=== PATIENT | female | born 1935 | race Caucasian/White ===

== ENCOUNTER 2016-06-10 16:08 | Inpatient (IN) | payer MEDICARE, MEDICAID ==
[~2016-06-10] VITALS: Ht 152.4 cm; Wt 123.4 kg
[~2016-06-10 16:08] MED LIST: ALBU8.5H3 INH; ALBU8.5H5 INH; AMIO200T42 PO; AMLO1POW2 PO; AMLO5TAB2 PO; APIX5TAB PO; ASPI-650 PO; CLOT100T PO; CLOT15CR4 TP; ENAL20TA PO; FLUT1POW2 INH; FURO-92 PO; FURO-93 PO; HYDR-3138 PO; LISI-167 PO; LOSA100T6 PO; LOSA50TA2 PO; LOSA50TA6 PO; LOVA20TA2 PO; METO25TA35 PO; METO50TA82 PO; ONDA4TAB10 PO; OXYM30SP2 INH; POTA10TA90 PO; POTA20TA14 PO; RANI150T4 PO; SERT25TA3 PO; TIOT18CA INH; aspirin PO
[2016-06-10] MEDS ORDERED: SODIUM CHLORIDE FLUSH 10ML SYR IVF ONE (16:30)
[2016-06-10] MEDS ORDERED: ACETAMINOPHEN 325 MG TABLET PO ONE (16:30)
[2016-06-10] MEDS ORDERED: ALBUTEROL/IPRATROPIUM 2.5MG/0.5MG, 3 ML NPPB ONE (16:30)
[2016-06-10] MEDS ORDERED: SODIUM CHLORIDE 0.9% 1,000ML IVBOLUS ONE ×2 (16:30→17:30)
[2016-06-10] MEDS ORDERED: PLEASE ENTER HEIGHT AND WEIGHT MC SCH (16:30)
[2016-06-10] MEDS ORDERED: [UNRECOGNIZED DRUG - OTHER] PO (16:31)
[2016-06-10] MEDS ORDERED: AMLO2.5T PO (16:31)
[2016-06-10] MEDS ORDERED: ACETAMINOPHEN 325 MG TABLET ONE (16:36)
[2016-06-10] MEDS ORDERED: ALBUTEROL/IPRATROPIUM 2.5MG/0.5MG, 3 ML ONE (16:37)
[2016-06-10 16:55] LABS: ASPARTATE AMINO TRANSFERASE 18 U/L (15-37); BLOOD UREA NITROGEN 15 mg/dL (7-18)
[2016-06-10 17:12] LABS: DIFF TOTAL CELLS COUNTED 100 CELL DIFF
[2016-06-10 17:13] LABS: VERIFY COUNTS? YES
[2016-06-10 17:17] LABS: IS PT STATUS REG ER OR PRE ER? YES
[2016-06-10] MEDS ORDERED: VANCOMYCIN PER PHARMACY MC ONE (17:30)
[2016-06-10] MEDS ORDERED: PIPERACILLIN/TAZO/PMX 4.5GM 100 ML IVPB ONE (17:30)
[2016-06-10] MEDS ORDERED: VANCOMYCIN 2,000 MG in SODIUM CHLORIDE 0.9% 500 ML IV ONE (18:30)
[2016-06-10] MEDS ORDERED: PHARMACOKINETIC CONSULTATION MC ONE (18:30)
[2016-06-10] MEDS ORDERED: SODIUM CHLORIDE 0.9%, 500ML IVBOLUS ONE (19:30)
[2016-06-10] MEDS ORDERED: ONDANSETRON 2MG/ML, 2ML IVP PRN (21:00)
[2016-06-10] MEDS ORDERED: LABETALOL 20 MG/4 ML IV PRN (21:00)
[2016-06-10] MEDS ORDERED: HYDROcodone/APAP 5/325 TABLET PO PRN (21:00)
[2016-06-10 21:25] VITALS: BP 124/64
[2016-06-10] MEDS ORDERED: ALBUTEROL/IPRATROPIUM 2.5MG/0.5MG, 3 ML NEB PRN (21:30)
[2016-06-10 21:47] VITALS: BP 114/72
[2016-06-10] MEDS: GUAIFENESIN/DM 200-20MG, 10ML UDC PO PRN (22:44)
[2016-06-10] MEDS: NS + 20MEQ KCL 1,000 ML IV SCH (22:45)
[2016-06-10 22:48] LABS: IS PT STATUS REG ER OR PRE ER? NO
[2016-06-10] MEDS: LEVOFLOXACIN/PMX 750MG/150ML 150 ML IV SCH (23:21)
[2016-06-11 02:30] VITALS: BP 106/54
[2016-06-11] MEDS ORDERED: SODIUM CHLORIDE 0.9%, 500ML IVBOLUS ONE (03:00)
[2016-06-11 03:20] VITALS: BP 106/55
[2016-06-11 04:57] LABS: BLOOD UREA NITROGEN 22 mg/dL (7-18)
[2016-06-11 05:48] LABS: DIFF TOTAL CELLS COUNTED 100 CELL DIFF
[2016-06-11 05:49] LABS: VERIFY COUNTS? YES
[2016-06-11 06:43] LABS: IS PT STATUS REG ER OR PRE ER? NO
[2016-06-11 06:55] VITALS: BP 122/63
[2016-06-11] MEDS: SENNA/DOCUSATE TABLET PO SCH (07:52)
[2016-06-11] MEDS: LOVASTATIN 40 MG TABLET PO SCH (07:52)
[2016-06-11] MEDS: AMIODARONE 200 MG TABLET PO SCH (07:52)
[2016-06-11] MEDS: APIXABAN 5 MG TABLET PO SCH ×2 (07:52→20:57)
[2016-06-11] MEDS: ACETAMINOPHEN 325 MG TABLET PO PRN ×2 (08:42→20:58)
[2016-06-11] MEDS: NS + 20MEQ KCL 1,000 ML IV SCH ×2 (13:27→22:28)
[2016-06-11 13:46] VITALS: BP 136/69
[2016-06-11] MEDS: ALBUTEROL/IPRATROPIUM 2.5MG/0.5MG, 3 ML NEB SCH ×4 (14:28→23:45)
[2016-06-11] MEDS: GUAIFENESIN/DM 200-20MG, 10ML UDC PO PRN (15:55)
[2016-06-11 16:28] VITALS: BP 146/69
[2016-06-11 18:39] VITALS: BP 122/67
[2016-06-11] MEDS: LEVOFLOXACIN/PMX 750MG/150ML 150 ML IV SCH (20:58)
[2016-06-12 01:15] VITALS: BP 172/60
[2016-06-12] MEDS: ALBUTEROL/IPRATROPIUM 2.5MG/0.5MG, 3 ML NEB SCH ×5 (01:30→17:30)
[2016-06-12 05:44] LABS: BLOOD UREA NITROGEN 19 mg/dL (7-18)
[2016-06-12 07:27] VITALS: BP 154/81
[2016-06-12] MEDS: LOVASTATIN 40 MG TABLET PO SCH (09:12)
[2016-06-12] MEDS: APIXABAN 5 MG TABLET PO SCH ×2 (09:12→21:23)
[2016-06-12] MEDS: SENNA/DOCUSATE TABLET PO SCH (09:12)
[2016-06-12] MEDS: FUROSEMIDE 20 MG TABLET PO SCH (09:12)
[2016-06-12] MEDS: LOSARTAN 50MG TABLET PO SCH (09:12)
[2016-06-12] MEDS: AMIODARONE 200 MG TABLET PO SCH (09:12)
[2016-06-12] MEDS: ACETAMINOPHEN 325 MG TABLET PO PRN (09:13)
[2016-06-12] MEDS: AMLODIPINE 2.5 MG TABLET PO SCH (10:28)
[2016-06-12 12:52] VITALS: BP 127/67
[2016-06-12] MEDS ORDERED: ALBUTEROL/IPRATROPIUM 2.5MG/0.5MG, 3 ML NEB PRN (17:30)
[2016-06-12 18:53] VITALS: BP 180/67
[2016-06-12 19:34] VITALS: BP 160/77
[2016-06-12] MEDS: LEVOFLOXACIN/PMX 750MG/150ML 150 ML IV SCH (21:24)
[2016-06-13 00:51] VITALS: BP 154/67
[2016-06-13 05:44] LABS: BLOOD UREA NITROGEN 14 mg/dL (7-18)
[2016-06-13] MEDS: ACETAMINOPHEN 325 MG TABLET PO PRN (06:21)
[2016-06-13 06:59] VITALS: BP 151/70
[2016-06-13] MEDS: LOVASTATIN 40 MG TABLET PO SCH (08:51)
[2016-06-13] MEDS: APIXABAN 5 MG TABLET PO SCH (08:51)
[2016-06-13] MEDS: FUROSEMIDE 20 MG TABLET PO SCH (08:52)
[2016-06-13] MEDS: LOSARTAN 50MG TABLET PO SCH (08:52)
[2016-06-13] MEDS: AMIODARONE 200 MG TABLET PO SCH (08:52)
[2016-06-13] MEDS: SENNA/DOCUSATE TABLET PO SCH (08:52)
[2016-06-13] MEDS: AMLODIPINE 2.5 MG TABLET PO SCH (08:59)
[2016-06-13] MEDS ORDERED: FUROSEMIDE 20 MG TABLET PO ONE (10:00)
[2016-06-13] MEDS ORDERED: LEVO750T26 PO ×2 (11:53→11:55)
[2016-06-13 12:05] LABS: PATH.CAST-FLAG NOT PRESENT; SPERM-FLAG NOT PRESENT; SRC-FLAG NOT PRESENT; XTAL-FLAG NOT PRESENT; YLC-FLAG NOT PRESENT
[2016-06-13 13:33] VITALS: BP 157/70
[2016-06-14] MEDS ORDERED: FUROSEMIDE 40 MG TABLET PO SCH (09:00)
== END 2016-06-13 15:37 | disposition home health service (06) | DRG 871 ==
LOC: ED 16:52 → EDIP 19:16 → 4WST 21:15
PROVIDERS: ADMIT Internal Medicine; ATTEND Internal Medicine
DX: A41.9 Sepsis, unspecified organism (principal); J18.9 Pneumonia, unspecified organism; J96.21 Acute and chronic respiratory failure with hypoxia; J44.0 Chronic obstructive pulmonary disease with (acute) lower respiratory infection; N17.9 Acute kidney failure, unspecified; J44.1 Chronic obstructive pulmonary disease with (acute) exacerbation; R65.20 Severe sepsis without septic shock; I11.0 Hypertensive heart disease with heart failure; I25.10 Atherosclerotic heart disease of native coronary artery without angina pectoris; I48.0 Paroxysmal atrial fibrillation; I50.9 Heart failure, unspecified; J44.9 Chronic obstructive pulmonary disease, unspecified; J45.909 Unspecified asthma, uncomplicated; Z66 Do not resuscitate; Z79.4 Long term (current) use of insulin; Z80.1 Family history of malignant neoplasm of trachea, bronchus and lung; Z99.81 Dependence on supplemental oxygen; Z90.49 Acquired absence of other specified parts of digestive tract; Z88.8 Allergy status to other drugs, medicaments and biological substances; Z82.49 Family history of ischemic heart disease and other diseases of the circulatory system
CPT/HCPCS: 36415; 71010; 80048; 80053; 81001; 82962; 83605; 83735; 83880; 84145; 84484; 85025; 85610; 85730; 87040; 87086; 87324; 93005; 94640; 96361; 96365; 96375; J1956; J2543; J3370; J3480; J7620; J7030; J7040

== ENCOUNTER 2016-07-20 09:44 | Inpatient (IN) | payer MEDICARE, MEDICAID ==
[~2016-07-20] VITALS: Ht 152.4 cm; Wt 107.5 kg
[~2016-07-20 09:44] MED LIST changes: +AMLO2.5T PO; +LEVO750T26 PO; +[UNRECOGNIZED DRUG - OTHER] PO
[2016-07-20] MEDS ORDERED: ALBUTEROL/IPRATROPIUM 2.5MG/0.5MG, 3 ML ONE (09:57)
[2016-07-20] MEDS ORDERED: SODIUM CHLORIDE FLUSH 10ML SYR IVF ONE (10:00)
[2016-07-20] MEDS ORDERED: methylPREDNISolone SOD SUCC 125 MG/2 ML IVP ONE (10:00)
[2016-07-20] MEDS ORDERED: PLEASE ENTER HEIGHT AND WEIGHT MC SCH (10:00)
[2016-07-20] MEDS ORDERED: MAGNESIUM SULFATE PMX 2GM/50ML 50 ML IVPB ONE (10:00)
[2016-07-20] MEDS ORDERED: methylPREDNISolone SOD SUCC 125 MG/2 ML ONE (10:16)
[2016-07-20 10:28] LABS: BLOOD UREA NITROGEN 15 mg/dL (7-18)
[2016-07-20 10:32] LABS: IS PT STATUS REG ER OR PRE ER? YES
[2016-07-20] MEDS ORDERED: SODIUM CHLORIDE FLUSH 10ML SYR IVF PRN (12:00)
[2016-07-20] MEDS ORDERED: BETAMETHASONE/CLOTRIMAZOLE CRM 1%-0.05%, 15GM TP PRN (12:30)
[2016-07-20] MEDS ORDERED: ONDANSETRON 2MG/ML, 2ML IVPush PRN (12:30)
[2016-07-20] MEDS ORDERED: ONDANSETRON ODT 4 MG PO PRN (12:30)
[2016-07-20] MEDS ORDERED: ALBUTEROL SULFATE 108 MCG INH PRN (12:30)
[2016-07-20] MEDS ORDERED: BISACODYL 10 MG SUPP PR PRN (12:30)
[2016-07-20] MEDS: SENNA/DOCUSATE TABLET PO SCH (12:30)
[2016-07-20] MEDS ORDERED: ENOXAPARIN 40 MG/0.4 ML SQ SCH (12:30)
[2016-07-20 13:27] VITALS: BP 118/68
[2016-07-20] MEDS ORDERED: [UNRECOGNIZED DRUG - REMARK] MC SCH (13:30)
[2016-07-20] MEDS ORDERED: ALBUTEROL SULFATE 2.5 MG/3 ML NPPB PRN (14:00)
[2016-07-20] MEDS: ACETAMINOPHEN 325 MG TABLET PO PRN ×2 (14:57→21:40)
[2016-07-20] MEDS: methylPREDNISolone SOD SUCC 40 MG/ML IV SCH (15:09)
[2016-07-20] MEDS: ALBUTEROL/IPRATROPIUM 2.5MG/0.5MG, 3 ML HHN SCH ×2 (16:30→22:30)
[2016-07-20 18:33] VITALS: BP 133/67
[2016-07-20] MEDS ORDERED: POTASSIUM CHLORIDE 20 MEQ TAB.ER.PRT PO ONE (20:00)
[2016-07-20] MEDS ORDERED: LABETALOL 5MG/ML, 20ML IVPush PRN (20:00)
[2016-07-20] MEDS ORDERED: FUROSEMIDE 20 MG TABLET PO SCH (21:00)
[2016-07-20] MEDS: APIXABAN 5 MG TABLET PO SCH (21:40)
[2016-07-20] MEDS ORDERED: FUROSEMIDE 40 MG TABLET PO ONE (22:30)
[2016-07-21 00:59] VITALS: BP 150/72
[2016-07-21] MEDS: ACETAMINOPHEN 325 MG TABLET PO PRN ×3 (02:56→20:25)
[2016-07-21] MEDS: methylPREDNISolone SOD SUCC 40 MG/ML IV SCH ×2 (02:56→15:00)
[2016-07-21 06:08] LABS: BLOOD UREA NITROGEN 18 mg/dL (7-18)
[2016-07-21 06:16] LABS: ASPARTATE AMINO TRANSFERASE 14 U/L (15-37)
[2016-07-21 06:51] VITALS: BP 144/74
[2016-07-21] MEDS: ALBUTEROL/IPRATROPIUM 2.5MG/0.5MG, 3 ML HHN SCH ×4 (07:15→20:10)
[2016-07-21] MEDS: FLUTICASONE/VILANTEROL 100-25MCG/INH INH SCH (08:40)
[2016-07-21] MEDS: AMIODARONE 200 MG TABLET PO SCH (08:41)
[2016-07-21] MEDS: SIMVASTATIN 10 MG TABLET PO SCH (08:41)
[2016-07-21] MEDS: AMLODIPINE 2.5 MG TABLET PO SCH (08:41)
[2016-07-21] MEDS: FUROSEMIDE 20 MG TABLET PO SCH (08:42)
[2016-07-21] MEDS: POTASSIUM CHLORIDE 10 MEQ TABLET.ER PO SCH (08:42)
[2016-07-21] MEDS: LOSARTAN 50MG TABLET PO SCH (08:42)
[2016-07-21] MEDS: APIXABAN 5 MG TABLET PO SCH ×2 (08:42→20:15)
[2016-07-21] MEDS: SENNA/DOCUSATE TABLET PO SCH (08:44)
[2016-07-21] MEDS ORDERED: [UNRECOGNIZED DRUG - OTHER] PO SCH (09:00)
[2016-07-21 14:26] VITALS: BP 147/70
[2016-07-21 18:24] VITALS: BP 157/70
[2016-07-22 01:02] VITALS: BP 143/69
[2016-07-22] MEDS: ACETAMINOPHEN 325 MG TABLET PO PRN ×3 (03:33→21:13)
[2016-07-22] MEDS: methylPREDNISolone SOD SUCC 40 MG/ML IV SCH (03:34)
[2016-07-22] MEDS: ALBUTEROL/IPRATROPIUM 2.5MG/0.5MG, 3 ML HHN SCH ×4 (04:15→20:01)
[2016-07-22 07:08] VITALS: BP 163/75
[2016-07-22] MEDS: AMIODARONE 200 MG TABLET PO SCH (08:51)
[2016-07-22] MEDS: POTASSIUM CHLORIDE 10 MEQ TABLET.ER PO SCH (08:52)
[2016-07-22] MEDS: AMLODIPINE 2.5 MG TABLET PO SCH (08:52)
[2016-07-22] MEDS: APIXABAN 5 MG TABLET PO SCH ×2 (08:52→21:12)
[2016-07-22] MEDS: FUROSEMIDE 20 MG TABLET PO SCH (08:52)
[2016-07-22] MEDS: LOSARTAN 50MG TABLET PO SCH (08:52)
[2016-07-22] MEDS: SIMVASTATIN 10 MG TABLET PO SCH (08:53)
[2016-07-22] MEDS: SENNA/DOCUSATE TABLET PO SCH (08:54)
[2016-07-22] MEDS: FLUTICASONE/VILANTEROL 100-25MCG/INH INH SCH (09:56)
[2016-07-22 13:52] VITALS: BP 149/67
[2016-07-22 19:42] VITALS: BP 131/71
[2016-07-23] MEDS: ALBUTEROL/IPRATROPIUM 2.5MG/0.5MG, 3 ML HHN SCH (02:25)
[2016-07-23 02:48] VITALS: BP 151/66
[2016-07-23] MEDS: ACETAMINOPHEN 325 MG TABLET PO PRN ×2 (04:08→08:35)
[2016-07-23] MEDS: SIMVASTATIN 10 MG TABLET PO SCH (08:30)
[2016-07-23] MEDS: AMIODARONE 200 MG TABLET PO SCH (08:30)
[2016-07-23] MEDS: LOSARTAN 50MG TABLET PO SCH (08:30)
[2016-07-23] MEDS: FUROSEMIDE 20 MG TABLET PO SCH (08:30)
[2016-07-23] MEDS: SENNA/DOCUSATE TABLET PO SCH (08:30)
[2016-07-23] MEDS: POTASSIUM CHLORIDE 10 MEQ TABLET.ER PO SCH (08:30)
[2016-07-23] MEDS: AMLODIPINE 2.5 MG TABLET PO SCH (08:30)
[2016-07-23] MEDS: APIXABAN 5 MG TABLET PO SCH ×2 (08:30→22:10)
[2016-07-23] MEDS: FLUTICASONE/VILANTEROL 100-25MCG/INH INH SCH (08:45)
[2016-07-24] MEDS: AMIODARONE 200 MG TABLET PO SCH (09:00)
[2016-07-24] MEDS: APIXABAN 5 MG TABLET PO SCH (09:00)
[2016-07-24] MEDS: LOSARTAN 50MG TABLET PO SCH (09:00)
[2016-07-24] MEDS: SIMVASTATIN 10 MG TABLET PO SCH (09:00)
[2016-07-24] MEDS: AMLODIPINE 2.5 MG TABLET PO SCH (09:00)
[2016-07-24] MEDS: FUROSEMIDE 20 MG TABLET PO SCH (09:00)
== END 2016-07-24 12:30 | disposition home or self-care (01) | DRG 291 ==
LOC: ED 11:04 → EDIP 11:34 → 4WST 13:07 → DCLOUNGE 07-24 11:33
PROVIDERS: ADMIT Family Medicine; ATTEND Family Medicine
DX: I11.0 Hypertensive heart disease with heart failure (principal); J18.9 Pneumonia, unspecified organism; J44.1 Chronic obstructive pulmonary disease with (acute) exacerbation; Z68.42 Body mass index [BMI] 45.0-49.9, adult; I50.23 Acute on chronic systolic (congestive) heart failure; E87.6 Hypokalemia; G47.33 Obstructive sleep apnea (adult) (pediatric); M19.90 Unspecified osteoarthritis, unspecified site; I48.91 Unspecified atrial fibrillation; Z66 Do not resuscitate; Z82.49 Family history of ischemic heart disease and other diseases of the circulatory system; Z99.81 Dependence on supplemental oxygen; Z80.1 Family history of malignant neoplasm of trachea, bronchus and lung; Z83.3 Family history of diabetes mellitus; Z90.49 Acquired absence of other specified parts of digestive tract; E78.5 Hyperlipidemia, unspecified
CPT/HCPCS: 36415; 71010; 80048; 80053; 82040; 83880; 84484; 85025; 93005; 94640; 96365; 96366; 96375; J1650; J7620; J2920; J2930; J3475; J7512

== ENCOUNTER 2016-10-07 10:33 | Inpatient (IN) | payer MEDICARE, MEDICAID ==
[~2016-10-07] VITALS: Ht 152.4 cm; Wt 105.4 kg
[~2016-10-07 10:33] MED LIST changes: -ALBU8.5H3 INH; +ALBU8.5H8 INH; -HYDR-3138 PO; +HYDR-3237 PO; -OXYM30SP2 INH; +OXYM30SP81 INH; +POTA10TA6 PO; -POTA10TA90 PO
[2016-10-07] MEDS ORDERED: SODIUM CHLORIDE 0.9% 1,000 ML IV ONE (10:47)
[2016-10-07] MEDS ORDERED: SODIUM CHLORIDE 0.9% 1,000ML IVBOLUS ONE (11:00)
[2016-10-07 11:15] LABS: HEMATOCRIT 41.3 % (34.6-47.8); HEMOGLOBIN 13.3 g/dL (11.7-16.4); WHITE BLOOD COUNT 8.7 x10^3/uL (3.4-10)
[2016-10-07 11:24] LABS: ASPARTATE AMINO TRANSFERASE 16 U/L (15-37); BLOOD UREA NITROGEN 15 mg/dL (7-18)
[2016-10-07] MEDS ORDERED: MECLIZINE CHEWABLE 25 MG TAB PO ONE (11:30)
[2016-10-07 11:31] LABS: IS PT STATUS REG ER OR PRE ER? YES
[2016-10-07] MEDS ORDERED: MECLIZINE CHEWABLE 25 MG TAB ONE (11:40)
[2016-10-07] MEDS ORDERED: SODIUM CHLORIDE FLUSH 10ML SYR IVF PRN (13:30)
[2016-10-07] MEDS ORDERED: ENALAPRILAT 1.25 MG/ML, 2ML IVPush PRN ×2 (15:00→16:00)
[2016-10-07] MEDS ORDERED: POLYETHYLENE GLYCOL 17 GM PACKET PO PRN (15:00)
[2016-10-07] MEDS ORDERED: BISACODYL 10 MG SUPP PR PRN (15:00)
[2016-10-07] MEDS ORDERED: ALBUTEROL SULFATE 2.5 MG/3 ML NPPB PRN (15:30)
[2016-10-07] MEDS ORDERED: OXYMETAZOLINE NASAL SPRAY 0.05%, 15ML NAS PRN (15:30)
[2016-10-07] MEDS ORDERED: CLOTRIM/BETAMETH 1%/0.05% CRM TP PRN (15:30)
[2016-10-07 16:39] VITALS: BP 151/66
[2016-10-07] MEDS: ACETAMINOPHEN 325 MG TABLET PO PRN (18:04)
[2016-10-07 21:19] VITALS: BP 144/76
[2016-10-07 21:21] VITALS: BP_SYST 144; BP_SYST 157; BP_SYST 163; BP_DIAS 76; BP_DIAS 83; BP_DIAS 84
[2016-10-07] MEDS: FUROSEMIDE 20 MG TABLET PO SCH (22:28)
[2016-10-07] MEDS: APIXABAN 5 MG TABLET PO SCH (22:28)
[2016-10-08] VITALS (7 sets, daily range): BP systolic 132–176; BP diastolic 63–79
[2016-10-08] MEDS: AMLODIPINE 2.5 MG TABLET PO SCH (09:40)
[2016-10-08] MEDS: POTASSIUM CHLORIDE 20 MEQ TAB.ER.PRT PO SCH (09:41)
[2016-10-08] MEDS: AMIODARONE 200 MG TABLET PO SCH (09:42)
[2016-10-08] MEDS: LOVASTATIN 40 MG TABLET PO SCH (09:42)
[2016-10-08] MEDS: FUROSEMIDE 20 MG TABLET PO SCH ×2 (09:42→21:20)
[2016-10-08] MEDS: APIXABAN 5 MG TABLET PO SCH ×2 (09:42→21:20)
[2016-10-08] MEDS ORDERED: LOSARTAN 50MG TABLET PO ONE (14:30)
[2016-10-08] MEDS: ACETAMINOPHEN 325 MG TABLET PO PRN (23:51)
[2016-10-09 02:25] VITALS: BP 151/56
[2016-10-09 02:30] VITALS: BP 153/53
[2016-10-09 02:37] VITALS: BP 159/74
[2016-10-09 07:51] VITALS: BP 169/68
[2016-10-09] MEDS: LOSARTAN 50MG TABLET PO SCH ×2 (09:00→11:20)
[2016-10-09] MEDS ORDERED: LOSARTAN 50MG TABLET PO SCH (09:00)
[2016-10-09] MEDS: AMIODARONE 200 MG TABLET PO SCH ×2 (11:19→12:08)
[2016-10-09] MEDS: POTASSIUM CHLORIDE 20 MEQ TAB.ER.PRT PO SCH (11:20)
[2016-10-09] MEDS: APIXABAN 5 MG TABLET PO SCH (11:20)
[2016-10-09] MEDS: AMLODIPINE 2.5 MG TABLET PO SCH ×2 (11:21→12:08)
[2016-10-09] MEDS: FUROSEMIDE 20 MG TABLET PO SCH (11:21)
[2016-10-09] MEDS: LOVASTATIN 40 MG TABLET PO SCH (11:21)
[2016-10-09 11:30] VITALS: BP 128/51
[2016-10-09] MEDS ORDERED: LOSA50TA6 PO (12:28)
[2016-10-09 13:25] VITALS: BP 163/57
== END 2016-10-09 15:05 | disposition home health service (06) | DRG 312 ==
LOC: ED 11:40 → EDIP 13:18 → 4EST 15:29 → DCLOUNGE 10-09 14:50
PROVIDERS: ADMIT Family Medicine; ATTEND Family Medicine
DX: I95.1 Orthostatic hypotension (principal); I50.9 Heart failure, unspecified; I48.91 Unspecified atrial fibrillation; I11.0 Hypertensive heart disease with heart failure; Z68.42 Body mass index [BMI] 45.0-49.9, adult; R42 Dizziness and giddiness; Z88.8 Allergy status to other drugs, medicaments and biological substances; E03.9 Hypothyroidism, unspecified; G47.33 Obstructive sleep apnea (adult) (pediatric); H93.19 Tinnitus, unspecified ear; I35.1 Nonrheumatic aortic (valve) insufficiency; J44.9 Chronic obstructive pulmonary disease, unspecified; L21.9 Seborrheic dermatitis, unspecified; Z80.1 Family history of malignant neoplasm of trachea, bronchus and lung; Z96.652 Presence of left artificial knee joint; Z82.49 Family history of ischemic heart disease and other diseases of the circulatory system; R51 Headache; T46.5X5A Adverse effect of other antihypertensive drugs, initial encounter
CPT/HCPCS: 36415; 70450; 71010; 80053; 83690; 83880; 84443; 84484; 85025; 93005; 93306; 96360; J7030

== ENCOUNTER 2016-10-24 17:47 | Inpatient (IN) | payer MEDICARE, MEDICAID ==
[~2016-10-24] VITALS: Ht 152.4 cm; Wt 109.8 kg
[2016-10-24] MEDS ORDERED: ASPIRIN 81 MG TABLET CHEW PO ONE (18:30)
[2016-10-24 18:57] LABS: HEMATOCRIT 36.5 % (34.6-47.8); HEMOGLOBIN 12.1 g/dL (11.7-16.4); WHITE BLOOD COUNT 24.9 x10^3/uL (3.4-10)
[2016-10-24 19:08] LABS: ASPARTATE AMINO TRANSFERASE 13 U/L (15-37); BLOOD UREA NITROGEN 17 mg/dL (7-18)
[2016-10-24 19:13] LABS: IS PT STATUS REG ER OR PRE ER? YES
[2016-10-24] MEDS ORDERED: SODIUM CHLORIDE 0.9% 1,000ML IVBOLUS ONE ×2 (19:30→20:00)
[2016-10-24] MEDS ORDERED: OMNIPAQUE 350 MG/ML, 100ML BOTTLE ONE (19:42)
[2016-10-24 19:46] LABS: DIFF TOTAL CELLS COUNTED 100 CELL DIFF
[2016-10-24 19:51] LABS: VERIFY COUNTS? YES
[2016-10-24] MEDS ORDERED: CEFTRIAXONE PMX 1GM/50ML 50 ML IVPB ONE (20:00)
[2016-10-24] MEDS ORDERED: AZITHROMYCIN 500 MG in SODIUM CHLORIDE 0.9% 250 ML IVPB ONE (20:00)
[2016-10-24] MEDS ORDERED: FLUT1AER INH (20:18)
[2016-10-24] MEDS ORDERED: ALBU18HF INH (20:18)
[2016-10-24] MEDS ORDERED: LOSA50TA6 PO (20:18)
[2016-10-24] MEDS ORDERED: POTA10TA31 PO (20:18)
[2016-10-24] MEDS ORDERED: CEFTRIAXONE PMX 1GM/50ML 50 ML ONE (20:32)
[2016-10-24] MEDS ORDERED: SODIUM CHLORIDE FLUSH 10ML SYR IVF PRN (21:00)
[2016-10-24] MEDS ORDERED: D5%-0.45% NACL 1,000 ML IV SCH (21:55)
[2016-10-24] MEDS ORDERED: HYDROcodone/APAP 5/325 TABLET PO PRN (22:00)
[2016-10-24] MEDS ORDERED: LABETALOL 5MG/ML, 20ML IVPush PRN (22:00)
[2016-10-24] MEDS ORDERED: ALBUTEROL SULFATE 2.5 MG/3 ML NPPB PRN (22:30)
[2016-10-24] MEDS ORDERED: ALBUTEROL SULFATE 2.5 MG/3 ML ONE (22:57)
[2016-10-24 23:17] VITALS: BP 128/59
[2016-10-24] MEDS: FUROSEMIDE 20 MG TABLET PO SCH (23:41)
[2016-10-24] MEDS: APIXABAN 5 MG TABLET PO SCH (23:41)
[2016-10-24] MEDS: AMPICILLIN/SULBACTAM 3 GM in SODIUM CHLORIDE 0.9% 100 ML IV SCH (23:41)
[2016-10-25 03:35] VITALS: BP 104/57
[2016-10-25 05:20] LABS: HEMATOCRIT 32.8 % (34.6-47.8); HEMOGLOBIN 10.8 g/dL (11.7-16.4); WHITE BLOOD COUNT 20.1 x10^3/uL (3.4-10)
[2016-10-25] MEDS: AMPICILLIN/SULBACTAM 3 GM in SODIUM CHLORIDE 0.9% 100 ML IV SCH ×4 (05:48→23:52)
[2016-10-25 06:14] LABS: BLOOD UREA NITROGEN 20 mg/dL (7-18)
[2016-10-25] MEDS ORDERED: ALBUTEROL SULFATE 2.5 MG/3 ML NPPB PRN (07:00)
[2016-10-25] MEDS ORDERED: ALBUTEROL SULFATE 2.5 MG/3 ML NPPB SCH (07:00)
[2016-10-25 07:20] VITALS: BP 114/63
[2016-10-25] MEDS ORDERED: AMIODARONE 200 MG TABLET PO SCH (09:00)
[2016-10-25] MEDS: AZITHROMYCIN 250 MG TABLET PO SCH (09:11)
[2016-10-25] MEDS: LOVASTATIN 40 MG TABLET PO SCH (09:11)
[2016-10-25] MEDS: FUROSEMIDE 20 MG TABLET PO SCH ×2 (09:11→20:49)
[2016-10-25] MEDS: APIXABAN 5 MG TABLET PO SCH ×2 (09:11→20:49)
[2016-10-25] MEDS: LOSARTAN 50MG TABLET PO SCH (09:12)
[2016-10-25] MEDS: AMLODIPINE 2.5 MG TABLET PO SCH (09:12)
[2016-10-25] MEDS: FLUTICASONE/VILANTEROL 100-25MCG/INH INH SCH (11:39)
[2016-10-25 13:24] VITALS: BP 129/68
[2016-10-25 18:44] VITALS: BP 130/65
[2016-10-26 02:28] VITALS: BP 130/76
[2016-10-26] MEDS: AMPICILLIN/SULBACTAM 3 GM in SODIUM CHLORIDE 0.9% 100 ML IV SCH ×3 (05:49→17:29)
[2016-10-26 05:51] LABS: BLOOD UREA NITROGEN 16 mg/dL (7-18)
[2016-10-26 05:56] LABS: HEMOGLOBIN 11.4 g/dL (11.7-16.4); WHITE BLOOD COUNT 10.2 x10^3/uL (3.4-10)
[2016-10-26 06:50] VITALS: BP 130/62
[2016-10-26] MEDS: POTASSIUM CHLORIDE 10 MEQ TABLET.ER PO SCH (07:52)
[2016-10-26] MEDS: AMLODIPINE 2.5 MG TABLET PO SCH (07:52)
[2016-10-26] MEDS: FUROSEMIDE 20 MG TABLET PO SCH ×2 (07:52→20:10)
[2016-10-26] MEDS: APIXABAN 5 MG TABLET PO SCH ×2 (07:53→20:09)
[2016-10-26] MEDS: FLUTICASONE/VILANTEROL 100-25MCG/INH INH SCH (07:53)
[2016-10-26] MEDS: LOSARTAN 50MG TABLET PO SCH (07:53)
[2016-10-26] MEDS: LOVASTATIN 40 MG TABLET PO SCH (07:53)
[2016-10-26] MEDS: AZITHROMYCIN 250 MG TABLET PO SCH (07:57)
[2016-10-26 12:12] VITALS: BP 156/75
[2016-10-26] MEDS ORDERED: VANCOMYCIN PER PHARMACY MC PRN (17:00)
[2016-10-26] MEDS ORDERED: VANCOMYCIN 2,000 MG in SODIUM CHLORIDE 0.9% 500 ML IV SCH (17:00)
[2016-10-26] MEDS ORDERED: PHARMACOKINETIC MONITORING MC PRN (17:00)
[2016-10-26 19:22] VITALS: BP 147/69
[2016-10-26] MEDS: OXYMETAZOLINE NASAL SPRAY 0.05%, 15ML NAS PRN (21:40)
[2016-10-27] MEDS: AMPICILLIN/SULBACTAM 3 GM in SODIUM CHLORIDE 0.9% 100 ML IV SCH ×4 (00:33→18:10)
[2016-10-27] MEDS: ACETAMINOPHEN 325 MG TABLET PO PRN (01:15)
[2016-10-27 01:55] VITALS: BP 166/72
[2016-10-27 05:12] LABS: HEMOGLOBIN 10.8 g/dL (11.7-16.4); WHITE BLOOD COUNT 6.7 x10^3/uL (3.4-10)
[2016-10-27 05:13] LABS: BLOOD UREA NITROGEN 15 mg/dL (7-18)
[2016-10-27 08:00] VITALS: BP 137/67
[2016-10-27] MEDS: FUROSEMIDE 20 MG TABLET PO SCH ×2 (09:41→20:45)
[2016-10-27] MEDS: FLUTICASONE/VILANTEROL 100-25MCG/INH INH SCH (09:41)
[2016-10-27] MEDS: LOVASTATIN 40 MG TABLET PO SCH (09:41)
[2016-10-27] MEDS: AMLODIPINE 2.5 MG TABLET PO SCH (09:42)
[2016-10-27] MEDS: AZITHROMYCIN 250 MG TABLET PO SCH (09:42)
[2016-10-27] MEDS: APIXABAN 5 MG TABLET PO SCH ×2 (09:42→20:45)
[2016-10-27] MEDS: LOSARTAN 50MG TABLET PO SCH (09:42)
[2016-10-27 13:00] VITALS: BP 163/66
[2016-10-27 19:36] VITALS: BP 172/67
[2016-10-27 20:30] VITALS: BP 166/72
[2016-10-27] MEDS: OXYMETAZOLINE NASAL SPRAY 0.05%, 15ML NAS PRN (20:46)
[2016-10-27] MEDS: CLOTRIM/BETAMETH 1%/0.05% CRM TP PRN (20:46)
[2016-10-28] VITALS (8 sets, daily range): BP systolic 127–199; BP diastolic 58–69
[2016-10-28] MEDS: AMPICILLIN/SULBACTAM 3 GM in SODIUM CHLORIDE 0.9% 100 ML IV SCH ×4 (00:21→18:38)
[2016-10-28 05:48] LABS: HEMATOCRIT 33.9 % (34.6-47.8); HEMOGLOBIN 11.2 g/dL (11.7-16.4); WHITE BLOOD COUNT 6.6 x10^3/uL (3.4-10)
[2016-10-28 06:01] LABS: BLOOD UREA NITROGEN 18 mg/dL (7-18)
[2016-10-28] MEDS: FLUTICASONE/VILANTEROL 100-25MCG/INH INH SCH (08:22)
[2016-10-28] MEDS: APIXABAN 5 MG TABLET PO SCH ×2 (08:23→21:14)
[2016-10-28] MEDS: AZITHROMYCIN 250 MG TABLET PO SCH (08:24)
[2016-10-28] MEDS: FUROSEMIDE 20 MG TABLET PO SCH ×2 (08:24→21:14)
[2016-10-28] MEDS: POTASSIUM CHLORIDE 10 MEQ TABLET.ER PO SCH (08:25)
[2016-10-28] MEDS: AMLODIPINE 2.5 MG TABLET PO SCH (08:26)
[2016-10-28] MEDS: LOSARTAN 50MG TABLET PO SCH (08:26)
[2016-10-28] MEDS: LOVASTATIN 40 MG TABLET PO SCH (08:27)
[2016-10-28] MEDS ORDERED: AMLODIPINE 2.5 MG TABLET PO ONE (09:30)
[2016-10-28] MEDS: CLOTRIM/BETAMETH 1%/0.05% CRM TP PRN ×2 (10:29→21:15)
[2016-10-28] MEDS ORDERED: VANCOMYCIN 1,500 MG in SODIUM CHLORIDE 0.9% 250 ML IV SCH (12:00)
[2016-10-28] MEDS: OXYMETAZOLINE NASAL SPRAY 0.05%, 15ML NAS PRN (21:15)
[2016-10-29] MEDS: AMPICILLIN/SULBACTAM 3 GM in SODIUM CHLORIDE 0.9% 100 ML IV SCH ×4 (00:23→19:13)
[2016-10-29 01:23] VITALS: BP 189/64
[2016-10-29 03:25] VITALS: BP 164/80
[2016-10-29] MEDS: ACETAMINOPHEN 325 MG TABLET PO PRN ×2 (04:05→19:17)
[2016-10-29 05:43] LABS: BLOOD UREA NITROGEN 15 mg/dL (7-18)
[2016-10-29 05:55] LABS: HEMATOCRIT 33.2 % (34.6-47.8); HEMOGLOBIN 10.8 g/dL (11.7-16.4); WHITE BLOOD COUNT 5.7 x10^3/uL (3.4-10)
[2016-10-29 07:55] VITALS: BP 193/65
[2016-10-29] MEDS: FLUTICASONE/VILANTEROL 100-25MCG/INH INH SCH (09:43)
[2016-10-29] MEDS: FUROSEMIDE 20 MG TABLET PO SCH ×2 (09:44→19:15)
[2016-10-29] MEDS: AZITHROMYCIN 250 MG TABLET PO SCH (09:46)
[2016-10-29] MEDS: APIXABAN 5 MG TABLET PO SCH ×2 (09:46→20:49)
[2016-10-29] MEDS: LOSARTAN 50MG TABLET PO SCH ×2 (09:46→20:49)
[2016-10-29] MEDS: LOVASTATIN 40 MG TABLET PO SCH (09:47)
[2016-10-29] MEDS: AMLODIPINE 5 MG TABLET PO SCH (09:47)
[2016-10-29] MEDS: CLOTRIM/BETAMETH 1%/0.05% CRM TP PRN (09:49)
[2016-10-29 13:24] VITALS: BP 156/69
[2016-10-29 19:00] VITALS: BP 177/69
[2016-10-30] MEDS: AMPICILLIN/SULBACTAM 3 GM in SODIUM CHLORIDE 0.9% 100 ML IV SCH ×2 (00:27→06:11)
[2016-10-30 00:34] VITALS: BP 194/70
[2016-10-30 08:07] VITALS: BP 196/68
[2016-10-30 08:55] VITALS: BP 177/63
[2016-10-30] MEDS: FLUTICASONE/VILANTEROL 100-25MCG/INH INH SCH (08:58)
[2016-10-30] MEDS: LOVASTATIN 40 MG TABLET PO SCH (09:00)
[2016-10-30] MEDS: APIXABAN 5 MG TABLET PO SCH ×2 (09:02→21:51)
[2016-10-30] MEDS: CLOTRIM/BETAMETH 1%/0.05% CRM TP PRN ×2 (09:02→21:52)
[2016-10-30] MEDS: AMLODIPINE 5 MG TABLET PO SCH (09:02)
[2016-10-30] MEDS: LOSARTAN 50MG TABLET PO SCH ×2 (09:03→21:51)
[2016-10-30] MEDS: FUROSEMIDE 20 MG TABLET PO SCH ×2 (09:03→21:51)
[2016-10-30] MEDS: POTASSIUM CHLORIDE 10 MEQ TABLET.ER PO SCH (09:03)
[2016-10-30 13:57] VITALS: BP 149/70
[2016-10-30 19:44] VITALS: BP 138/66
[2016-10-30] MEDS: ACETAMINOPHEN 325 MG TABLET PO PRN (21:51)
[2016-10-31 01:18] VITALS: BP 164/71
[2016-10-31 06:35] VITALS: BP 173/66
[2016-10-31] MEDS: FLUTICASONE/VILANTEROL 100-25MCG/INH INH SCH (08:51)
[2016-10-31] MEDS: LOSARTAN 50MG TABLET PO SCH (08:51)
[2016-10-31] MEDS: AMLODIPINE 5 MG TABLET PO SCH (08:51)
[2016-10-31] MEDS: APIXABAN 5 MG TABLET PO SCH (08:51)
[2016-10-31] MEDS: FUROSEMIDE 20 MG TABLET PO SCH (08:51)
[2016-10-31] MEDS: LOVASTATIN 40 MG TABLET PO SCH (08:52)
[2016-10-31] MEDS: ACETAMINOPHEN 325 MG TABLET PO PRN (08:56)
[2016-10-31] MEDS ORDERED: LOSA50TA6 PO (12:38)
[2016-10-31] MEDS ORDERED: AMLO5TAB2 PO (12:44)
== END 2016-10-31 12:57 | disposition home or self-care (01) | DRG 291 ==
LOC: ED 20:32 → EDIP 20:37 → ED 20:52 → 4EST 22:56 → DCLOUNGE 10-31 11:58
PROVIDERS: ADMIT Family Medicine; ATTEND Family Medicine
DX: I11.0 Hypertensive heart disease with heart failure (principal); J18.1 Lobar pneumonia, unspecified organism; A04.7 Enterocolitis due to Clostridium difficile; J44.0 Chronic obstructive pulmonary disease with (acute) lower respiratory infection; D68.59 Other primary thrombophilia; R04.2 Hemoptysis; E66.01 Morbid (severe) obesity due to excess calories; I50.32 Chronic diastolic (congestive) heart failure; R09.02 Hypoxemia; E78.5 Hyperlipidemia, unspecified; G47.33 Obstructive sleep apnea (adult) (pediatric); I35.1 Nonrheumatic aortic (valve) insufficiency; I48.0 Paroxysmal atrial fibrillation; I48.2 Chronic atrial fibrillation; M19.90 Unspecified osteoarthritis, unspecified site; Z66 Do not resuscitate; Z79.01 Long term (current) use of anticoagulants; Z79.4 Long term (current) use of insulin; Z79.82 Long term (current) use of aspirin; Z80.1 Family history of malignant neoplasm of trachea, bronchus and lung; Z82.49 Family history of ischemic heart disease and other diseases of the circulatory system; Z82.5 Family history of asthma and other chronic lower respiratory diseases; Z87.891 Personal history of nicotine dependence; Z83.3 Family history of diabetes mellitus; Z90.49 Acquired absence of other specified parts of digestive tract; Z91.19 Patient's noncompliance with other medical treatment and regimen; Z99.81 Dependence on supplemental oxygen; Z85.828 Personal history of other malignant neoplasm of skin; Z88.6 Allergy status to analgesic agent; Z88.8 Allergy status to other drugs, medicaments and biological substances
CPT/HCPCS: 36415; 71275; 80048; 80053; 81001; 83605; 83880; 84145; 84484; 85025; 85610; 85730; 87040; 87324; 87493; 93005; 96361; 96365; J0295; J0456; J0696; J3370; Q9967; J7030; J7040; J7050

== ENCOUNTER 2016-11-30 08:25 | Observation (INO) | payer MEDICARE, MEDICAID ==
[2016-11-28 11:54] VITALS: BP 148/44
[2016-11-28 12:05] LABS: HEMATOCRIT 39.5 % (34.6-47.8); HEMOGLOBIN 12.8 g/dL (11.7-16.4); WHITE BLOOD COUNT 9.5 x10^3/uL (3.4-10)
[2016-11-28 12:18] LABS: ASPARTATE AMINO TRANSFERASE 14 U/L (15-37); BLOOD UREA NITROGEN 21 mg/dL (7-18)
[~2016-11-30] VITALS: Ht 157.5 cm; Wt 103.7 kg
[~2016-11-30 08:25] MED LIST changes: +ALBU18HF INH; +FLUT1AER INH; +POTA10TA31 PO
[2016-11-30] MEDS ORDERED: SODIUM CHLORIDE 0.9% 1,000 ML IV SCH (08:45)
[2016-11-30] MEDS ORDERED: CEFAZOLIN PMX 1GM/50ML 50 ML IVPB ONE (09:00)
[2016-11-30] MEDS ORDERED: ACET500T76 PO (09:18)
[2016-11-30] MEDS ORDERED: oxygen (09:19)
[2016-11-30] MEDS ORDERED: MIDAZOLAM 1 MG/ML, 5ML ONE (10:07)
[2016-11-30] MEDS ORDERED: CEFAZOLIN PMX 1GM/50ML 50 ML ONE (10:07)
[2016-11-30] MEDS ORDERED: FENTANYL PF 100 MCG/2ML ONE ×2 (10:07→11:30)
[2016-11-30] MEDS ORDERED: CEFAZOLIN 1,000 MG ONE (10:07)
[2016-11-30] MEDS ORDERED: LIDOCAINE 2%, 20ML ONE ×2 (10:07→11:30)
[2016-11-30] MEDS ORDERED: ALBUTEROL SULFATE 2.5 MG/3 ML NPPB PRN (12:00)
[2016-11-30] MEDS ORDERED: CLOTRIM/BETAMETH 1%/0.05% CRM TP PRN (12:00)
[2016-11-30] MEDS ORDERED: ACETAMINOPHEN 325 MG TABLET PO PRN (12:00)
[2016-11-30] MEDS ORDERED: ZOLPIDEM 5MG TABLET PO PRN (12:00)
[2016-11-30] MEDS ORDERED: ACETAMINOPHEN 500 MG TABLET PO PRN (12:00)
[2016-11-30 13:28] VITALS: BP 137/77
[2016-11-30 14:43] VITALS: BP 148/82
[2016-11-30] MEDS: CEFAZOLIN PMX 1GM/50ML 50 ML IVPB SCH (18:28)
[2016-11-30 18:42] VITALS: BP 160/73
[2016-11-30] MEDS: FUROSEMIDE 20 MG TABLET PO SCH (21:00)
[2016-11-30] MEDS: HYDROcodone/APAP 5/325 TABLET PO PRN (21:05)
[2016-11-30] MEDS: LOSARTAN 50MG TABLET PO SCH (21:05)
[2016-11-30] MEDS: SODIUM CHLORIDE FLUSH 10ML SYR IVF SCH (21:05)
[2016-11-30 22:16] VITALS: BP 118/67
[2016-12-01 01:21] VITALS: BP 134/70
[2016-12-01] MEDS: CEFAZOLIN PMX 1GM/50ML 50 ML IVPB SCH (01:36)
[2016-12-01] MEDS: HYDROcodone/APAP 5/325 TABLET PO PRN (01:36)
[2016-12-01 07:16] VITALS: BP 155/71
[2016-12-01] MEDS: LOSARTAN 50MG TABLET PO SCH (08:27)
[2016-12-01] MEDS: SODIUM CHLORIDE FLUSH 10ML SYR IVF SCH (08:29)
[2016-12-01] MEDS: FUROSEMIDE 20 MG TABLET PO SCH (08:30)
[2016-12-01] MEDS ORDERED: FLUTICASONE/VILANTEROL 100-25MCG/INH INH SCH (09:00)
[2016-12-01] MEDS ORDERED: AMLODIPINE 5 MG TABLET PO SCH (09:00)
[2016-12-01] MEDS ORDERED: [UNRECOGNIZED DRUG - OTHER] PO SCH (09:00)
[2016-12-01] MEDS ORDERED: LOVASTATIN 40 MG TABLET PO SCH (09:00)
[2016-12-01] MEDS ORDERED: HYDR-3237 PO (10:35)
[2016-12-01] MEDS ORDERED: FLU VACC QS2017-18 (36MOS+) UP/PF 0.5 ML IM-VACC ONE (11:00)
[2016-12-01 14:09] VITALS: BP 125/67
[2016-12-02] MEDS ORDERED: POTASSIUM CHLORIDE 10 MEQ TABLET.ER PO SCH (09:00)
== END 2016-12-01 15:19 | disposition home or self-care (01) ==
LOC: CACL 08:25 → ORIP 12:06 → 5SO 12:25
PROVIDERS: ADMIT Internal Medicine Cardiovascular Disease; ATTEND Internal Medicine Cardiovascular Disease
DX: I49.5 Sick sinus syndrome (principal); R00.1 Bradycardia, unspecified; I48.0 Paroxysmal atrial fibrillation; I10 Essential (primary) hypertension; E78.2 Mixed hyperlipidemia; E66.9 Obesity, unspecified; G47.30 Sleep apnea, unspecified; I35.8 Other nonrheumatic aortic valve disorders; J44.9 Chronic obstructive pulmonary disease, unspecified; R73.01 Impaired fasting glucose; Z23 Encounter for immunization
CPT/HCPCS: 33208; 36005; 36415; 71010; 71020; 80053; 85025; 85610; 85730; 90471; 90686; 96365; 96375; 99156; 99157; C1779; C1785; C1892; G0008; G0378; J0690; J2250; J3010; J3490; Q9967

== ENCOUNTER 2017-01-30 02:28 | Emergency (ER) | payer MEDICARE, MEDICAID ==
[~2017-01-30] VITALS: Ht 152.4 cm; Wt 105.0 kg
[~2017-01-30 02:28] MED LIST changes: +ACET500T76 PO; +oxygen
[2017-01-30 02:55] LABS: HEMATOCRIT 35.9 % (34.6-47.8); HEMOGLOBIN 11.9 g/dL (11.7-16.4); WHITE BLOOD COUNT 7.6 x10^3/uL (3.4-10)
[2017-01-30] MEDS ORDERED: ALBUTEROL SULFATE 2.5 MG/3 ML NPPB ONE (03:00)
[2017-01-30 03:08] LABS: ASPARTATE AMINO TRANSFERASE 13 U/L (15-37); BLOOD UREA NITROGEN 14 mg/dL (7-18)
[2017-01-30 03:17] LABS: IS PT STATUS REG ER OR PRE ER? YES
[2017-01-30] MEDS ORDERED: ALBUTEROL SULFATE 2.5 MG/3 ML ONE (03:18)
[2017-01-30] MEDS ORDERED: LEVOFLOXACIN ONE (04:29)
[2017-01-30] MEDS ORDERED: PMX ONE (04:29)
[2017-01-30] MEDS: LEVOFLOXACIN/PMX 500MG/100ML 100 ML IV SCH ×2 (04:30→04:40)
[2017-01-30] MEDS ORDERED: LEVOFLOXACIN 750 MG TABLET ONE (04:46)
[2017-01-30] MEDS ORDERED: LEVOFLOXACIN 750 MG TABLET PO ONE (05:00)
[2017-01-30 05:59] VITALS: BP 168/88
== END 2017-01-30 06:48 | disposition home or self-care (01) ==
LOC: ED 02:37
DX: J44.1 Chronic obstructive pulmonary disease with (acute) exacerbation (principal); J20.9 Acute bronchitis, unspecified; I11.0 Hypertensive heart disease with heart failure; I50.9 Heart failure, unspecified; Z90.49 Acquired absence of other specified parts of digestive tract; Z88.8 Allergy status to other drugs, medicaments and biological substances
CPT/HCPCS: 36415; 71010; 80053; 83880; 84484; 85025; 93005; 99285; J1956

== ENCOUNTER 2017-05-05 05:41 | Inpatient (IN) | payer MEDICARE, MEDICAID ==
[~2017-05-05] VITALS: Ht 167.6 cm; Wt 111.6 kg
[2017-05-05] MEDS ORDERED: NYSTATIN OINT 15GM TP SCH (06:30)
[2017-05-05] MEDS ORDERED: SODIUM CHLORIDE FLUSH 10ML SYR IVF ONE (06:30)
[2017-05-05 06:46] LABS: BASOPHILS # (AUTO) 0.03 x10^3/uL (0-0.1); BASOPHILS % (AUTO) 0 % (0-1); EOSINOPHILS # (AUTO) 0.82 x10^3/uL (0-0.4); EOSINOPHILS % (AUTO) 9 % (1-7); LYMPHOCYTES # (AUTO) 1.33 x10^3/uL (1-3.4); LYMPHOCYTES % (AUTO) 15 % (22-44); MD NO; MEAN CORPUSCULAR HEMOGLOBIN 28.4 pg (27.0-34.8); MEAN CORPUSCULAR HGB CONC 33.3 g/dL (32.4-35.8); MEAN CORPUSCULAR VOLUME 85.4 fL (80-100); MEAN PLATELET VOLUME 7.2 fL (7.4-10.4); MONOCYTES # (AUTO) 0.78 x10^3/uL (0.2-0.8); MONOCYTES % (AUTO) 9 % (2-9); NEUTROPHILS # (AUTO) 6.16 x10^3/uL (1.8-6.8); NEUTROPHILS % (AUTO) 68 % (42-75); PLATELET COUNT 288 x10^3/uL (130-400); RED BLOOD COUNT 4.13 x10^6/uL (3.82-5.3); RED CELL DISTRIBUTION WIDTH 13.3 % (9.6-15.2)
[2017-05-05 06:59] LABS: ALBUMIN 3.2 g/dL (3.4-5.0); ANION GAP 1 mmol/L (5-15); CALCIUM 8.4 mg/dL (8.5-10.1); CHLORIDE 102 mmol/L (98-107)
[2017-05-05 07:02] LABS: TROPONIN I < 0.015 ng/mL (0.000-0.045)
[2017-05-05] MEDS ORDERED: DOCUSATE 100 MG CAPSULE PO PRN (09:30)
[2017-05-05] MEDS ORDERED: GUAIFENESIN/DM 200-20MG, 10ML UDC PO PRN (09:30)
[2017-05-05] MEDS ORDERED: LOVASTATIN 20 MG TABLET PO SCH ×2 (09:30→21:00)
[2017-05-05] MEDS ORDERED: AZITHROMYCIN 500 MG TABLET PO ONE (09:30)
[2017-05-05] MEDS ORDERED: HYDROcodone/APAP 5/325 TABLET PO PRN (09:30)
[2017-05-05] MEDS ORDERED: FLUCONAZOLE 100 MG TABLET PO ONE (09:30)
[2017-05-05] MEDS ORDERED: OXYMETAZOLINE NASAL SPRAY 0.05%, 15ML NAS PRN (09:30)
[2017-05-05] MEDS ORDERED: LABETALOL 5MG/ML, 20ML IVPush PRN (09:30)
[2017-05-05] MEDS ORDERED: METOCLOPRAMIDE 5 MG/ML, 2ML IVPush PRN (09:30)
[2017-05-05 10:21] VITALS: BP 144/52
[2017-05-05] MEDS ORDERED: PLEASE ENTER WEIGHT MC SCH (10:30)
[2017-05-05] MEDS: INSULIN LISPRO 100 UNITS/ML, PEN SQ-INSULIN SCH ×3 (11:00→20:54)
[2017-05-05] MEDS ORDERED: FLUCONAZOLE 200 MG TABLET ONE ×2 (11:36)
[2017-05-05] MEDS ORDERED: ALBUTEROL SULFATE 2.5 MG/3 ML NPPB PRN (12:00)
[2017-05-05] MEDS: LOSARTAN 50MG TABLET PO SCH ×2 (12:52→20:49)
[2017-05-05] MEDS: ENOXAPARIN 40 MG/0.4 ML SQ SCH (12:53)
[2017-05-05] MEDS: FUROSEMIDE 20 MG TABLET PO SCH ×2 (12:54→20:49)
[2017-05-05 13:07] VITALS: BP 145/54
[2017-05-05 19:10] VITALS: BP 129/65
[2017-05-05] MEDS: ACETAMINOPHEN 325 MG TABLET PO PRN (22:40)
[2017-05-06 01:06] VITALS: BP 148/69
[2017-05-06 05:15] LABS: BASOPHILS # (AUTO) 0.01 x10^3/uL (0-0.1); BASOPHILS % (AUTO) 0 % (0-1); EOSINOPHILS % (AUTO) 0 % (1-7); LYMPHOCYTES # (AUTO) 0.66 x10^3/uL (1-3.4); LYMPHOCYTES % (AUTO) 10 % (22-44); MD NO; MEAN CORPUSCULAR HEMOGLOBIN 27.8 pg (27.0-34.8); MEAN CORPUSCULAR HGB CONC 32.9 g/dL (32.4-35.8); MEAN CORPUSCULAR VOLUME 84.5 fL (80-100); MEAN PLATELET VOLUME 7.2 fL (7.4-10.4); MONOCYTES # (AUTO) 0.17 x10^3/uL (0.2-0.8); MONOCYTES % (AUTO) 3 % (2-9); NEUTROPHILS # (AUTO) 5.52 x10^3/uL (1.8-6.8); NEUTROPHILS % (AUTO) 87 % (42-75); PLATELET COUNT 264 x10^3/uL (130-400); RED BLOOD COUNT 4.01 x10^6/uL (3.82-5.3); RED CELL DISTRIBUTION WIDTH 13.1 % (9.6-15.2)
[2017-05-06] MEDS: INSULIN LISPRO 100 UNITS/ML, PEN SQ-INSULIN SCH ×2 (06:29→11:00)
[2017-05-06 06:55] VITALS: BP 125/71
[2017-05-06] MEDS ORDERED: POTASSIUM CHLORIDE 10 MEQ TABLET.ER PO SCH (08:00)
[2017-05-06] MEDS ORDERED: PRED20TA PO (08:47)
[2017-05-06] MEDS ORDERED: FLUC150T PO (08:52)
[2017-05-06] MEDS ORDERED: AMLODIPINE 5 MG TABLET PO SCH (09:00)
[2017-05-06] MEDS ORDERED: AZITHROMYCIN 250 MG TABLET PO SCH (09:00)
[2017-05-06] MEDS: FUROSEMIDE 20 MG TABLET PO SCH (09:41)
[2017-05-06] MEDS: ENOXAPARIN 40 MG/0.4 ML SQ SCH (09:41)
[2017-05-06] MEDS: LOSARTAN 50MG TABLET PO SCH (09:44)
[2017-05-06] MEDS: ACETAMINOPHEN 325 MG TABLET PO PRN (09:57)
[2017-05-06] MEDS ORDERED: AZIT250T89 PO (11:00)
== END 2017-05-06 15:31 | disposition home or self-care (01) | DRG 758 ==
LOC: ED 07:48 → EDIP 08:22 → 4NOR 09:54
PROVIDERS: ADMIT Family Medicine; ATTEND Family Medicine
DX: B37.3 Candidiasis of vulva and vagina (principal); I42.9 Cardiomyopathy, unspecified; I48.2 Chronic atrial fibrillation; E66.01 Morbid (severe) obesity due to excess calories; I11.0 Hypertensive heart disease with heart failure; I50.9 Heart failure, unspecified; J44.1 Chronic obstructive pulmonary disease with (acute) exacerbation; E10.9 Type 1 diabetes mellitus without complications; G47.30 Sleep apnea, unspecified; Z88.8 Allergy status to other drugs, medicaments and biological substances; I25.10 Atherosclerotic heart disease of native coronary artery without angina pectoris; R09.02 Hypoxemia; Z77.22 Contact with and (suspected) exposure to environmental tobacco smoke (acute) (chronic); Z79.4 Long term (current) use of insulin; Z80.1 Family history of malignant neoplasm of trachea, bronchus and lung; Z82.3 Family history of stroke; Z90.49 Acquired absence of other specified parts of digestive tract
CPT/HCPCS: 36415; 71045; 80048; 82040; 82962; 83605; 84484; 85025; 87040; 93005; J1650; J7613; J1815; J7512

== ENCOUNTER → 2017-11-21 | Outpatient (CLI) | payer MEDICARE, MEDICAID ==
[~2017-11-21] MED LIST changes: -AMLO2.5T PO; +AMLO2.5T3 PO; -AMLO5TAB2 PO; +AMLO5TAB7 PO; +AZIT250T89 PO; +FLUC150T PO; -LOSA100T6 PO; +LOSA100T7 PO; -LOSA50TA6 PO; +LOSA50TA7 PO; +PRED20TA PO
[2017-11-21 12:36] LABS: BASOPHILS # (AUTO) 0.03 x10^3/uL (0-0.1); BASOPHILS % (AUTO) 0 % (0-1); EOSINOPHILS % (AUTO) 12 % (1-7); LYMPHOCYTES # (AUTO) 1.85 x10^3/uL (1-3.4); LYMPHOCYTES % (AUTO) 24 % (22-44); MD NO; MEAN CORPUSCULAR HEMOGLOBIN 27.6 pg (27.0-34.8); MEAN CORPUSCULAR HGB CONC 32.4 g/dL (32.4-35.8); MEAN CORPUSCULAR VOLUME 85.1 fL (80-100); MEAN PLATELET VOLUME 7.5 fL (7.4-10.4); MONOCYTES # (AUTO) 0.64 x10^3/uL (0.2-0.8); MONOCYTES % (AUTO) 8 % (2-9); NEUTROPHILS # (AUTO) 4.27 x10^3/uL (1.8-6.8); NEUTROPHILS % (AUTO) 56 % (42-75); PLATELET COUNT 273 x10^3/uL (130-400); RED BLOOD COUNT 4.49 x10^6/uL (3.82-5.3); RED CELL DISTRIBUTION WIDTH 13.6 % (9.6-15.2)
[2017-11-21 12:44] LABS: ALBUMIN 3.6 g/dL (3.4-5.0); ANION GAP 5 mmol/L (5-15); CALCIUM 8.7 mg/dL (8.5-10.1); CHLORIDE 103 mmol/L (98-107)
[2017-11-21 12:47] LABS: ALANINE AMINOTRANSFERASE 18 U/L (12-78); ALKALINE PHOSPHATASE 88 U/L (45-117); BILIRUBIN,TOTAL 0.5 mg/dL (0.2-1.0); CHOL/HDL RATIO 2.6; CHOLESTEROL, TOTAL 149 mg/dL (140-239); CREATININE 0.76 mg/dL (0.55-1.02); HDL CHOL % 38 % (28-40); HDL CHOLESTEROL (DIRECT) 57 mg/dL (40-60); LDL CHOLESTEROL,CALCULATED 71 mg/dL (54-169); LDL/HDL RATIO 1.2 (0.5-3.0); TOTAL PROTEIN 7.4 g/dL (6.4-8.2); TRIGLYCERIDES 106 mg/dL (50-200); VLDL CHOLESTEROL 21 mg/dL (0-25)
[2017-11-21 13:17] LABS: HEMOGLOBIN A1C 5.7 % (4.2-6.3)
== END | disposition home or self-care (01) ==
LOC: CFH 08:53
PROVIDERS: ATTEND Internal Medicine Cardiovascular Disease
DX: E78.2 Mixed hyperlipidemia (principal); I48.91 Unspecified atrial fibrillation; R73.01 Impaired fasting glucose
CPT/HCPCS: 36415; 80053; 80061; 83036; 85025

== ENCOUNTER 2018-02-19 11:59 | Inpatient (IN) | payer MEDICARE, MEDICAID ==
[~2018-02-19] VITALS: Ht 152.4 cm; Wt 112.8 kg
[~2018-02-19 11:59] MED LIST changes: +AMLO-150 PO; -AMLO5TAB7 PO; +DILT120C9 PO
--- NOTE | 2018-02-19 12:07 | NUR ---
PULSE OX 86% RA. O2 TITRATED: 965 ON 4LNC Addendum: 02/19/18 at 1208 by YAKOV CORRECTION 96%
[2018-02-19] MEDS ORDERED: POTA10TA11 PO (12:22)
[2018-02-19] MEDS ORDERED: LOSA50TA7 PO (12:22)
--- NOTE | 2018-02-19 12:24 | NUR ---
MED REC COMPLETED TO THE BEST OF PT'S MEMORY - POOR HISTORIAN
[2018-02-19] MEDS ORDERED: ALBUTEROL/IPRATROPIUM 2.5MG/0.5MG, 3 ML NPPB ONE (12:30)
[2018-02-19 12:47] LABS: BASOPHILS # (AUTO) 0.02 x10^3/uL (0-0.1); BASOPHILS % (AUTO) 0 % (0-1); EOSINOPHILS # (AUTO) 0.49 x10^3/uL (0-0.4); EOSINOPHILS % (AUTO) 7 % (1-7); LYMPHOCYTES # (AUTO) 1.22 x10^3/uL (1-3.4); LYMPHOCYTES % (AUTO) 18 % (22-44); MD NO; MEAN CORPUSCULAR HEMOGLOBIN 26.6 pg (27.0-34.8); MEAN CORPUSCULAR HGB CONC 31.9 g/dL (32.4-35.8); MEAN CORPUSCULAR VOLUME 83.6 fL (80-100); MONOCYTES # (AUTO) 0.54 x10^3/uL (0.2-0.8); MONOCYTES % (AUTO) 8 % (2-9); NEUTROPHILS # (AUTO) 4.49 x10^3/uL (1.8-6.8); NEUTROPHILS % (AUTO) 66 % (42-75); PLATELET COUNT 292 x10^3/uL (130-400); RED BLOOD COUNT 4.22 x10^6/uL (3.82-5.3); RED CELL DISTRIBUTION WIDTH 13.4 % (9.6-15.2)
[2018-02-19] MEDS ORDERED: ALBUTEROL/IPRATROPIUM 2.5MG/0.5MG, 3 ML ONE (12:53)
[2018-02-19 13:03] LABS: ALANINE AMINOTRANSFERASE 16 U/L (12-78); ALBUMIN 3.4 g/dL (3.4-5.0); ANION GAP 5 mmol/L (5-15); CALCIUM 8.4 mg/dL (8.5-10.1); CHLORIDE 95 mmol/L (98-107); CREATININE 0.92 mg/dL (0.55-1.02)
[2018-02-19 13:08] LABS: ALKALINE PHOSPHATASE 82 U/L (45-117); BILIRUBIN,TOTAL 0.5 mg/dL (0.2-1.0); TOTAL PROTEIN 6.9 g/dL (6.4-8.2); TROPONIN I < 0.015 ng/mL (0.000-0.045)
--- NOTE | 2018-02-19 14:06 | NUR ---
paged unr for dr harvey
--- NOTE | 2018-02-19 14:12 | NUR ---
COMMODE CHAIR TO ROOM. PT VOIDED CLEAR YELLOW URINE; SPECIMEN OBTAINED - NO UA ORDER, YET. PT ASSISTED BACK TO BED. MONITORING EQUIPMENT APPLIED, SIDE RAILS UP X2, CALL LIGHT W/IN REACH.
[2018-02-19] MEDS ORDERED: ALBUTEROL SULFATE 2.5 MG/3 ML NPPB ONE (14:30)
--- NOTE | 2018-02-19 14:54 | NUR ---
PT REPORT TO PRISCILA RINCON - TAKING REPORT FOR PRISCILA PAGAN. ROOM 411, NO BED IN ROOM CURRENTLY.
[2018-02-19] MEDS ORDERED: DILTIAZEM 5 MG/ML, 5ML IVPush PRN (15:30)
[2018-02-19] MEDS ORDERED: ALBUTEROL SULFATE 2.5 MG/3 ML NPPB PRN (15:30)
[2018-02-19] MEDS ORDERED: ONDANSETRON 2MG/ML, 2ML IVPush PRN (15:30)
[2018-02-19] MEDS ORDERED: ONDANSETRON ODT 4 MG PO PRN (15:30)
[2018-02-19] MEDS ORDERED: FUROSEMIDE 20 MG/2 ML IV ONE (15:30)
[2018-02-19] MEDS ORDERED: DOCUSATE 100 MG CAPSULE PO PRN (15:30)
[2018-02-19] MEDS ORDERED: IBUPROFEN 600 MG TABLET PO PRN (15:30)
[2018-02-19] MEDS ORDERED: LABETALOL 5MG/ML, 20ML IVPush PRN (15:30)
[2018-02-19] MEDS ORDERED: HYDROcodone/APAP 5/325 TABLET PO PRN (15:30)
[2018-02-19] MEDS: ENOXAPARIN 30 MG/0.3 ML SQ SCH (17:16)
[2018-02-19] MEDS: ACETAMINOPHEN 325 MG TABLET PO PRN (17:16)
[2018-02-19] MEDS: CEFTRIAXONE PMX 1GM/50ML 50 ML IV SCH (17:34)
[2018-02-19 18:36] LABS: TROPONIN I < 0.015 ng/mL (0.000-0.045)
[2018-02-19] MEDS ORDERED: ALBUTEROL/IPRATROPIUM 2.5MG/0.5MG, 3 ML NPPB SCH (19:00)
[2018-02-19 19:10] LABS: RAPID INFLUENZA A Negative (Negative); RAPID INFLUENZA B Negative (Negative)
[2018-02-19 19:25] VITALS: BP 126/51
[2018-02-19] MEDS: BUDESONIDE 0.5 MG/2 ML INHA INH SCH (19:30)
[2018-02-19] MEDS: LOVASTATIN 20 MG TABLET PO SCH (20:13)
[2018-02-19] MEDS ORDERED: DILTIAZEM 120 MG CAP.ER.12H PO SCH (21:00)
[2018-02-20 03:05] VITALS: BP 122/72
[2018-02-20] MEDS: ACETAMINOPHEN 325 MG TABLET PO PRN ×2 (03:07→15:25)
[2018-02-20] MEDS: ENOXAPARIN 30 MG/0.3 ML SQ SCH ×2 (05:19→17:00)
[2018-02-20 06:02] LABS: CHLORIDE 97 mmol/L (98-107)
[2018-02-20 06:14] LABS: ANION GAP 2 mmol/L (5-15); CALCIUM 8.4 mg/dL (8.5-10.1); CREATININE 0.92 mg/dL (0.55-1.02)
[2018-02-20] MEDS: BUDESONIDE 0.5 MG/2 ML INHA INH SCH ×2 (07:53→21:40)
[2018-02-20 07:57] VITALS: BP 119/76
[2018-02-20] MEDS ORDERED: AMLODIPINE 5 MG TABLET PO SCH (09:00)
[2018-02-20] MEDS: FUROSEMIDE 40 MG TABLET PO SCH (09:03)
[2018-02-20] MEDS: POTASSIUM CHLORIDE 10 MEQ TABLET.ER PO SCH (09:03)
[2018-02-20] MEDS: DILTIAZEM 120 MG CAP.ER.12H PO SCH (09:04)
[2018-02-20 12:42] VITALS: BP 124/77
[2018-02-20 13:02] VITALS: BP 135/75
[2018-02-20] MEDS: CEFTRIAXONE PMX 1GM/50ML 50 ML IV SCH (15:26)
[2018-02-20] MEDS ORDERED: AMLO2.5T3 PO (17:57)
[2018-02-20 20:28] VITALS: BP 129/77
[2018-02-20] MEDS: GUAIFENESIN 200 MG TABLET PO SCH (20:30)
[2018-02-20] MEDS: LOVASTATIN 20 MG TABLET PO SCH (20:30)
[2018-02-20] MEDS: ALBUTEROL SULFATE 2.5 MG/3 ML NPPB PRN (21:53)
[2018-02-21 00:05] VITALS: BP 131/72
[2018-02-21] MEDS: ACETAMINOPHEN 325 MG TABLET PO PRN ×3 (01:44→19:31)
[2018-02-21] MEDS: ENOXAPARIN 30 MG/0.3 ML SQ SCH ×2 (04:57→16:21)
[2018-02-21 08:27] VITALS: BP 134/80
[2018-02-21] MEDS: GUAIFENESIN 200 MG TABLET PO SCH ×2 (08:29→21:20)
[2018-02-21] MEDS: POTASSIUM CHLORIDE 10 MEQ TABLET.ER PO SCH (08:30)
[2018-02-21] MEDS: FUROSEMIDE 40 MG TABLET PO SCH (08:30)
[2018-02-21] MEDS: AMLODIPINE 2.5 MG TABLET PO SCH ×2 (08:31→21:20)
[2018-02-21] MEDS: DILTIAZEM 120 MG CAP.ER.12H PO SCH (08:32)
[2018-02-21] MEDS: BUDESONIDE 0.5 MG/2 ML INHA INH SCH ×2 (09:00→20:01)
[2018-02-21 13:03] VITALS: BP 115/70
[2018-02-21] MEDS: CEFTRIAXONE PMX 1GM/50ML 50 ML IV SCH (16:21)
[2018-02-21 18:36] VITALS: BP 132/85
[2018-02-21] MEDS: LOVASTATIN 20 MG TABLET PO SCH (21:20)
[2018-02-22] MEDS: ACETAMINOPHEN 325 MG TABLET PO PRN ×3 (01:01→20:27)
[2018-02-22 01:02] VITALS: BP 130/93
[2018-02-22] MEDS: ENOXAPARIN 30 MG/0.3 ML SQ SCH ×2 (05:23→17:23)
[2018-02-22 05:40] LABS: CHLORIDE 97 mmol/L (98-107)
[2018-02-22 05:50] LABS: ALBUMIN 3.4 g/dL (3.4-5.0); ANION GAP 4 mmol/L (5-15); CALCIUM 8.5 mg/dL (8.5-10.1); CREATININE 0.89 mg/dL (0.55-1.02)
[2018-02-22 07:17] VITALS: BP 130/88
[2018-02-22] MEDS: GUAIFENESIN 200 MG TABLET PO SCH ×2 (08:25→20:27)
[2018-02-22] MEDS: DILTIAZEM 120 MG CAP.ER.12H PO SCH (08:26)
[2018-02-22] MEDS: POTASSIUM CHLORIDE 10 MEQ TABLET.ER PO SCH (08:26)
[2018-02-22] MEDS: FUROSEMIDE 40 MG TABLET PO SCH (08:27)
[2018-02-22] MEDS: AMLODIPINE 2.5 MG TABLET PO SCH ×2 (08:27→20:27)
[2018-02-22] MEDS: BUDESONIDE 0.5 MG/2 ML INHA INH SCH ×2 (09:28→22:10)
[2018-02-22 13:20] VITALS: BP 127/72
[2018-02-22] MEDS: AMOXICILLIN/CLAV 875-125MG TABLET PO SCH (15:33)
[2018-02-22 20:14] VITALS: BP 135/81
[2018-02-22] MEDS: LOVASTATIN 20 MG TABLET PO SCH (20:27)
[2018-02-22] MEDS: ALBUTEROL SULFATE 2.5 MG/3 ML NPPB PRN (22:10)
[2018-02-23 01:29] VITALS: BP 143/87
[2018-02-23] MEDS: ACETAMINOPHEN 325 MG TABLET PO PRN ×2 (03:49→20:40)
[2018-02-23] MEDS: AMOXICILLIN/CLAV 875-125MG TABLET PO SCH ×2 (03:50→17:05)
[2018-02-23] MEDS: ENOXAPARIN 30 MG/0.3 ML SQ SCH ×2 (05:47→17:05)
[2018-02-23 08:07] VITALS: BP 127/84
[2018-02-23] MEDS: BUDESONIDE 0.5 MG/2 ML INHA INH SCH ×2 (08:45→20:27)
[2018-02-23] MEDS: DILTIAZEM 120 MG CAP.ER.12H PO SCH (09:04)
[2018-02-23] MEDS: POTASSIUM CHLORIDE 10 MEQ TABLET.ER PO SCH (09:04)
[2018-02-23] MEDS: FUROSEMIDE 40 MG TABLET PO SCH (09:05)
[2018-02-23] MEDS: AMLODIPINE 2.5 MG TABLET PO SCH ×2 (09:05→20:40)
[2018-02-23] MEDS: GUAIFENESIN 200 MG TABLET PO SCH ×2 (09:05→20:39)
[2018-02-23 12:52] VITALS: BP 111/56
[2018-02-23 19:50] VITALS: BP 121/72
[2018-02-23] MEDS: LOVASTATIN 20 MG TABLET PO SCH (20:39)
[2018-02-24 03:18] VITALS: BP 127/76
[2018-02-24] MEDS: AMOXICILLIN/CLAV 875-125MG TABLET PO SCH (05:10)
[2018-02-24] MEDS: ENOXAPARIN 30 MG/0.3 ML SQ SCH (05:10)
[2018-02-24 06:49] VITALS: BP 151/78
[2018-02-24] MEDS: BUDESONIDE 0.5 MG/2 ML INHA INH SCH (06:55)
[2018-02-24] MEDS ORDERED: AZIT250T89 PO (08:55)
[2018-02-24] MEDS ORDERED: ALBU2.5V NPPB (08:55)
[2018-02-24] MEDS: AMLODIPINE 2.5 MG TABLET PO SCH (09:34)
[2018-02-24] MEDS: FUROSEMIDE 40 MG TABLET PO SCH (09:34)
[2018-02-24] MEDS: POTASSIUM CHLORIDE 10 MEQ TABLET.ER PO SCH (09:34)
[2018-02-24] MEDS: DILTIAZEM 120 MG CAP.ER.12H PO SCH (09:34)
[2018-02-24] MEDS: GUAIFENESIN 200 MG TABLET PO SCH (09:34)
== END 2018-02-24 10:45 | disposition home or self-care (01) | DRG 291 ==
LOC: ED 12:30 → EDIP 14:18 → 4WST 15:57 → DCLOUNGE 02-24 10:22
PROVIDERS: ADMIT Family Medicine; ATTEND Family Medicine
DX: I11.0 Hypertensive heart disease with heart failure (principal); J96.21 Acute and chronic respiratory failure with hypoxia; J44.1 Chronic obstructive pulmonary disease with (acute) exacerbation; Z68.42 Body mass index [BMI] 45.0-49.9, adult; I50.43 Acute on chronic combined systolic (congestive) and diastolic (congestive) heart failure; I42.9 Cardiomyopathy, unspecified; R07.9 Chest pain, unspecified; D64.9 Anemia, unspecified; E66.3 Overweight; E78.5 Hyperlipidemia, unspecified; G47.33 Obstructive sleep apnea (adult) (pediatric); E11.9 Type 2 diabetes mellitus without complications; I25.10 Atherosclerotic heart disease of native coronary artery without angina pectoris; I48.2 Chronic atrial fibrillation; Z77.22 Contact with and (suspected) exposure to environmental tobacco smoke (acute) (chronic); Z80.1 Family history of malignant neoplasm of trachea, bronchus and lung; Z79.4 Long term (current) use of insulin; Z82.3 Family history of stroke; Z95.0 Presence of cardiac pacemaker; Z99.81 Dependence on supplemental oxygen; Z88.8 Allergy status to other drugs, medicaments and biological substances
CPT/HCPCS: 36415; 71045; 80048; 80053; 82040; 83880; 84443; 84484; 85025; 87400; 93005; 94640; 99285; G0378; J0696; J1650; J7613; J7620; J7626; J1940; J7512

== ENCOUNTER 2018-02-25 00:28 | Inpatient (IN) | payer MEDICARE, MEDICAID ==
[~2018-02-25] VITALS: Ht 152.4 cm; Wt 108.9 kg
[~2018-02-25 00:28] MED LIST changes: +ALBU2.5V NPPB; -AMLO2.5T3 PO; +AMLO2.5T5 PO; +LOSA100T14 PO; -LOSA100T7 PO; +LOSA50TA14 PO; -LOSA50TA7 PO; +POTA10TA11 PO
--- NOTE | 2018-02-25 00:48 | NUR ---
82 Y/O FEMALE MARIANA YARBROUGH AFTER BEING DISCHARGED TODAY FROM HERE FOR COPD EXACERBATION, AFIB AND CHF. EMS REPORT THE HOUSE WAS A MESS. FECES ALL OVER HOME. PT STILL IN HOSPITAL GOWN FROM DISCHARGE. [facility] BRIANNA REPORT THEY ARE CALLED TO HER [facility] FOR LIFT ASSISTS. THE PT WAS ENCOURAGED TO BE DISCHARGED TO A REHAB FACILITY TODAY HOWEVER REFUSED. PT STATES SHE IS NOW READY. HER ONLY COMPLAINT UPON ARRIVAL TO THE ER IS A NEW ONSET OF DIARRHEA. SHE REPORTS SEVERAL EPISODES. DENIES ANY ABD PAIN, NO N/V, FEVER/CHILLS, CHEST PAIN, SOB. ALL VITALS STABLE. PT ON O2 VIA NC @ 3LPM, SHE NOW REQUIRES 4LPM VIA NC. ALL MONITORING EQUIPMENT APPLIED. MONITOR SHOWS A FIB IN THE 90S. NO ECTOPY NOTED. NO ST CHANGES PRESENT. CONTINUED ON O2 VIA NC @ 4 LPM. ALL VITALS STABLE. CALL LIGHT WITHIN REACH. WILL CONTINUE TO MONITOR.
--- NOTE | 2018-02-25 01:04 | NUR ---
PT ASSISTED TO BEDSIDE COMMODE, CLOTHING CHANGED AND PT ASSISTED BACK TO [facility]. 2 PERSON ASSIST.
[2018-02-25 01:21] LABS: BASOPHILS # (AUTO) 0.03 x10^3/uL (0-0.1); BASOPHILS % (AUTO) 0 % (0-1); EOSINOPHILS # (AUTO) 0.14 x10^3/uL (0-0.4); EOSINOPHILS % (AUTO) 2 % (1-7); LYMPHOCYTES # (AUTO) 1.85 x10^3/uL (1-3.4); LYMPHOCYTES % (AUTO) 21 % (22-44); MD NO; MEAN CORPUSCULAR HEMOGLOBIN 26.4 pg (27.0-34.8); MEAN CORPUSCULAR HGB CONC 31.5 g/dL (32.4-35.8); MEAN CORPUSCULAR VOLUME 83.9 fL (80-100); MEAN PLATELET VOLUME 7.1 fL (7.4-10.4); MONOCYTES # (AUTO) 0.88 x10^3/uL (0.2-0.8); MONOCYTES % (AUTO) 10 % (2-9); NEUTROPHILS # (AUTO) 6.11 x10^3/uL (1.8-6.8); NEUTROPHILS % (AUTO) 68 % (42-75); PLATELET COUNT 321 x10^3/uL (130-400); RED BLOOD COUNT 4.34 x10^6/uL (3.82-5.3); RED CELL DISTRIBUTION WIDTH 13.9 % (9.6-15.2)
--- NOTE | 2018-02-25 01:26 | NUR ---
PT UNABLE TO GIVE URINE OR STOOL SAMPLE ATT DUE TO BOTH SAMPLES BEING CONTAMINATED WITH THE OTHER
[2018-02-25 01:32] LABS: ALANINE AMINOTRANSFERASE 32 U/L (12-78); ALBUMIN 3.5 g/dL (3.4-5.0); ANION GAP 3 mmol/L (5-15); CALCIUM 8.6 mg/dL (8.5-10.1); CHLORIDE 95 mmol/L (98-107); CREATININE 0.85 mg/dL (0.55-1.02)
[2018-02-25 01:34] LABS: ALKALINE PHOSPHATASE 77 U/L (45-117); BILIRUBIN,TOTAL 0.4 mg/dL (0.2-1.0); TOTAL PROTEIN 6.9 g/dL (6.4-8.2)
--- NOTE | 2018-02-25 01:42 | NUR ---
EMT AT BEDSIDE PERFORMING EKG
[2018-02-25] MEDS ORDERED: hydrALAzine 20 MG/ML, 1ML IV PRN (02:30)
--- NOTE | 2018-02-25 02:43 | NUR ---
PT RESTING ON GURNEY. RR EVEN AND UNLABORED. PT ON CONT. SPO2, BP, AND BROWNELL OPERATOR, VSS. PT DENIES PAIN OR NEEDS ATT. AWAITING ADMIT BED
[2018-02-25] MEDS ORDERED: ALBUTEROL SULFATE 108 MCG INH PRN (03:00)
[2018-02-25] MEDS ORDERED: OXYMETAZOLINE NASAL SPRAY 0.05%, 15ML NAS PRN (03:00)
[2018-02-25] MEDS ORDERED: CLOTRIM/BETAMETH 1%/0.05% CRM TP PRN (03:00)
[2018-02-25] MEDS ORDERED: ALBUTEROL SULFATE 2.5 MG NPPB PRN (03:00)
--- NOTE | 2018-02-25 03:00 | NUR ---
REPORT FROM PRISCILA WILSON. PT RESTING IN [facility] [place] W/ EYES CLOSED. EVEN/REGULAR RESPIRATIONS NOTED. VARIABLE CARDIAC RHYTHM NOTED ON MONITOR W/ FREQUENT PACER SPIKES. HR 80-100. POC IS ADMIT. PT CURRENTLY 'HOLD' IN ED. HOSPITAL BED REQUESTED.
--- NOTE | 2018-02-25 03:49 | NUR ---
TASK RN: PT. RESTING ON GURNEY IN SITTING POSITION. EYES CLOSED. EVEN, NON-LABORED RESPIRATIONS NOTED. PT. IS ON ALL MONITORS. VS UPDATED. NADN. CALL LIGHT IN REACH. ALL SAFETY MEASUERS OBSERVED.
[2018-02-25] MEDS ORDERED: ENOXAPARIN 40 MG/0.4 ML SQ SCH (04:00)
[2018-02-25] MEDS ORDERED: ENOXAPARIN 40 MG/0.4 ML ONE (04:42)
--- NOTE | 2018-02-25 05:09 | NUR ---
TASK RN: PT. ROLLED FROM SIDE TO SIDE FOR RN'S TO CHANGE LINEN UNDER PT AND BOOST PT. UP ON GURNEWSOMS. PT. O2 SAT DROPPED QUICKLY TO LOW 70'S BUT PT. REPOSITIONED ON GURNEY BACK TO SITTING POSITION. PT. COACHED ON BREATHING SLOWLY AND DEEP TO HELP RECOVER MORE QUICKLY. PT. O2 SAT BACK UP TO 93%. CALL LIGHT IN REACH. ALL SAFETY MEASURES OBSERVED. ALL MONITORS REMAIN IN PLACE.
--- NOTE | 2018-02-25 05:17 | NUR ---
PT ASKED RN TO CALL SISTER TO LET HER KNOW SHE IS IN THE HOSPITAL AND TO CALL HER [address]NA[address] [employer] [place]. SISTER LORNA [phone].
--- NOTE | 2018-02-25 06:45 | NUR ---
SISTER LORNA CONTACTED AND UPDATED TO PT'S POC PER PT REQUEST. HOSPITAL BED RE-REQUESTED FROM HOUSE KEEPING.
--- NOTE | 2018-02-25 07:30 | NUR ---
RECEIVED REPOR FROM TRISTON FRANCOIS. PT MOVED TO HOSPITAL BED. PT A&OX4. PT URINATED ON BEDPAN. PT THEN CHANGED, CLEANED AND DRYED.
--- NOTE | 2018-02-25 08:19 | NUR ---
DIET TRAY ORDERED.
[2018-02-25] MEDS ORDERED: FLUTICASONE/VILANTEROL 100-25MCG/INH INH SCH (09:00)
[2018-02-25] MEDS: LOVASTATIN 20 MG TABLET PO SCH ×2 (09:00→21:33)
[2018-02-25] MEDS ORDERED: POTASSIUM CHLORIDE 10 MEQ TABLET.ER PO SCH (09:00)
[2018-02-25] MEDS ORDERED: LOSARTAN 50MG TABLET PO SCH (09:00)
--- NOTE | 2018-02-25 09:10 | NUR ---
MEAL TRAY GIVEN TO PT.
[2018-02-25] MEDS: FUROSEMIDE 20 MG TABLET PO SCH ×2 (09:40→21:34)
[2018-02-25] MEDS: AMLODIPINE 2.5 MG TABLET PO SCH ×2 (09:40→21:34)
[2018-02-25] MEDS: DILTIAZEM 120 MG CAP.ER.24H PO SCH (09:40)
[2018-02-25] MEDS: BUDESONIDE 0.5 MG/2 ML INHA NPPB SCH ×2 (10:00→21:07)
[2018-02-25] MEDS: ALBUTEROL/IPRATROPIUM 2.5MG/0.5MG, 3 ML NPPB SCH ×3 (10:00→21:07)
--- NOTE | 2018-02-25 10:07 | NUR ---
PT PLACED ON BED CARL. PT THEN CHANGED AND CLEANED.
--- NOTE | 2018-02-25 10:08 | NUR ---
AWAITING LOSARTAN AND GINA BARRAGAN FROM [email or web address]. PT WITH ARTHRITIC PAIN ALL OVER. TYLENOL GIVEN.
[2018-02-25] MEDS ORDERED: ACETAMINOPHEN 325 MG TABLET ONE (10:15)
--- NOTE | 2018-02-25 10:15 | NUR ---
OFF THE BED CALR. [place] CARE PROVIDED.
--- NOTE | 2018-02-25 10:19 | NUR ---
REPORT GIVEN TO BECKY FRANCOIS
[2018-02-25] MEDS: ACETAMINOPHEN 325 MG TABLET PO PRN (10:27)
--- NOTE | 2018-02-25 12:06 | NUR ---
REPORT GIVEN TO CHRISTIANA
[2018-02-25 12:45] VITALS: BP 128/60
[2018-02-25 12:54] VITALS: BP 128/60
[2018-02-25 14:12] LABS: CLOSTRIDIUM DIFFICILE ANTIGEN POSITIVE; CLOSTRIDIUM DIFFICILE TOXIN NEGATIVE (Negative)
[2018-02-25 15:50] LABS: CULTURE INDICATED? YES; MICROSCOPIC INDICATED
[2018-02-25 19:59] VITALS: BP 119/79
[2018-02-25] MEDS: FLORASTOR 250 MG CAPSULE PO SCH (21:33)
[2018-02-25] MEDS: LOSARTAN 50MG TABLET PO SCH (21:34)
[2018-02-26 01:33] VITALS: BP 115/72
[2018-02-26] MEDS: ALBUTEROL/IPRATROPIUM 2.5MG/0.5MG, 3 ML NPPB SCH ×4 (03:15→21:15)
[2018-02-26 05:19] LABS: BASOPHILS # (AUTO) 0.02 x10^3/uL (0-0.1); BASOPHILS % (AUTO) 0 % (0-1); EOSINOPHILS % (AUTO) 2 % (1-7); LYMPHOCYTES # (AUTO) 2.17 x10^3/uL (1-3.4); LYMPHOCYTES % (AUTO) 26 % (22-44); MD NO; MEAN CORPUSCULAR HEMOGLOBIN 26.9 pg (27.0-34.8); MEAN CORPUSCULAR HGB CONC 31.8 g/dL (32.4-35.8); MEAN CORPUSCULAR VOLUME 84.5 fL (80-100); MEAN PLATELET VOLUME 7.6 fL (7.4-10.4); MONOCYTES # (AUTO) 0.73 x10^3/uL (0.2-0.8); MONOCYTES % (AUTO) 9 % (2-9); NEUTROPHILS # (AUTO) 5.26 x10^3/uL (1.8-6.8); NEUTROPHILS % (AUTO) 63 % (42-75); PLATELET COUNT 263 x10^3/uL (130-400); RED BLOOD COUNT 4.17 x10^6/uL (3.82-5.3); RED CELL DISTRIBUTION WIDTH 13.9 % (9.6-15.2)
[2018-02-26 05:43] LABS: CALCIUM 8.7 mg/dL (8.5-10.1); CREATININE 0.75 mg/dL (0.55-1.02)
[2018-02-26 05:58] LABS: ANION GAP 0 mmol/L (5-15); CHLORIDE 97 mmol/L (98-107)
[2018-02-26] MEDS: BUDESONIDE 0.5 MG/2 ML INHA NPPB SCH ×2 (06:46→21:15)
[2018-02-26 07:29] VITALS: BP 107/67
[2018-02-26] MEDS ORDERED: ENOXAPARIN 30 MG/0.3 ML SQ SCH (09:00)
[2018-02-26] MEDS ORDERED: ENOXAPARIN 40 MG/0.4 ML SQ SCH (09:00)
[2018-02-26] MEDS: FLORASTOR 250 MG CAPSULE PO SCH ×2 (09:42→20:02)
[2018-02-26] MEDS: LOSARTAN 50MG TABLET PO SCH ×2 (09:42→20:02)
[2018-02-26] MEDS: AMLODIPINE 2.5 MG TABLET PO SCH ×2 (09:43→20:03)
[2018-02-26] MEDS: DILTIAZEM 120 MG CAP.ER.24H PO SCH (09:43)
[2018-02-26] MEDS: FUROSEMIDE 20 MG TABLET PO SCH ×2 (09:43→20:03)
[2018-02-26] MEDS: POTASSIUM CHLORIDE 10 MEQ TABLET.ER PO SCH (09:43)
[2018-02-26 10:17] VITALS: BP 121/71
[2018-02-26 11:33] LABS: TROPONIN I < 0.015 ng/mL (0.000-0.045)
[2018-02-26 12:57] VITALS: BP 108/57
[2018-02-26 19:23] VITALS: BP 115/80
[2018-02-26] MEDS: ACETAMINOPHEN 325 MG TABLET PO PRN (20:02)
[2018-02-26] MEDS: APIXABAN 2.5 MG TABLET PO SCH (20:02)
[2018-02-26] MEDS: LOVASTATIN 20 MG TABLET PO SCH (20:02)
[2018-02-27 01:58] VITALS: BP 128/79
[2018-02-27] MEDS: ALBUTEROL/IPRATROPIUM 2.5MG/0.5MG, 3 ML NPPB SCH ×4 (02:58→21:09)
[2018-02-27 06:57] VITALS: BP 114/66
[2018-02-27] MEDS: DILTIAZEM 120 MG CAP.ER.24H PO SCH (08:46)
[2018-02-27] MEDS: CIPROFLOXACIN 500 MG TABLET PO SCH ×3 (08:46→20:35)
[2018-02-27] MEDS: FLORASTOR 250 MG CAPSULE PO SCH ×2 (08:47→20:35)
[2018-02-27] MEDS: FUROSEMIDE 20 MG TABLET PO SCH ×2 (08:47→20:36)
[2018-02-27] MEDS: POTASSIUM CHLORIDE 10 MEQ TABLET.ER PO SCH (08:47)
[2018-02-27] MEDS: APIXABAN 2.5 MG TABLET PO SCH ×2 (08:47→20:35)
[2018-02-27] MEDS: AMLODIPINE 2.5 MG TABLET PO SCH ×2 (08:47→20:35)
[2018-02-27] MEDS: LOSARTAN 50MG TABLET PO SCH ×2 (08:51→20:36)
[2018-02-27] MEDS: BUDESONIDE 0.5 MG/2 ML INHA NPPB SCH ×2 (09:50→21:09)
[2018-02-27 12:59] VITALS: BP 121/77
[2018-02-27 20:06] VITALS: BP 117/66
[2018-02-27] MEDS: LOVASTATIN 20 MG TABLET PO SCH (20:36)
[2018-02-27] MEDS: ACETAMINOPHEN 325 MG TABLET PO PRN (22:41)
[2018-02-28 00:58] VITALS: BP 106/74
[2018-02-28] MEDS: ALBUTEROL/IPRATROPIUM 2.5MG/0.5MG, 3 ML NPPB SCH (03:50)
[2018-02-28] MEDS: ALBUTEROL SULFATE 2.5 MG/3 ML NPPB PRN ×2 (06:40→14:30)
[2018-02-28] MEDS: BUDESONIDE 0.5 MG/2 ML INHA NPPB SCH ×2 (06:40→19:15)
[2018-02-28 06:54] VITALS: BP 116/71
[2018-02-28] MEDS: FLORASTOR 250 MG CAPSULE PO SCH ×2 (08:40→21:00)
[2018-02-28] MEDS: POTASSIUM CHLORIDE 10 MEQ TABLET.ER PO SCH (08:40)
[2018-02-28] MEDS: FUROSEMIDE 20 MG TABLET PO SCH ×2 (08:40→21:12)
[2018-02-28] MEDS: AMLODIPINE 2.5 MG TABLET PO SCH ×2 (08:41→21:11)
[2018-02-28] MEDS: APIXABAN 2.5 MG TABLET PO SCH ×2 (08:41→21:12)
[2018-02-28] MEDS: CIPROFLOXACIN 500 MG TABLET PO SCH ×2 (08:41→21:12)
[2018-02-28] MEDS: DILTIAZEM 120 MG CAP.ER.24H PO SCH (08:41)
[2018-02-28] MEDS: LOSARTAN 50MG TABLET PO SCH ×2 (08:41→21:17)
[2018-02-28 12:27] VITALS: BP 111/57
[2018-02-28] MEDS ORDERED: CIPR500T87 PO (14:56)
[2018-02-28] MEDS ORDERED: APIX2.5T PO (14:56)
[2018-02-28 19:20] VITALS: BP 131/83
[2018-02-28] MEDS: LOVASTATIN 20 MG TABLET PO SCH (21:12)
[2018-02-28 22:15] VITALS: BP 122/78
[2018-03-01 01:54] VITALS: BP 121/69
[2018-03-01 07:59] VITALS: BP 115/61
[2018-03-01] MEDS: DILTIAZEM 120 MG CAP.ER.24H PO SCH (10:46)
[2018-03-01] MEDS: LOSARTAN 50MG TABLET PO SCH ×2 (10:47→20:25)
[2018-03-01] MEDS: CIPROFLOXACIN 500 MG TABLET PO SCH ×2 (10:47→20:21)
[2018-03-01] MEDS: FUROSEMIDE 20 MG TABLET PO SCH ×2 (10:47→20:19)
[2018-03-01] MEDS: APIXABAN 2.5 MG TABLET PO SCH ×2 (10:47→20:22)
[2018-03-01] MEDS: POTASSIUM CHLORIDE 10 MEQ TABLET.ER PO SCH (10:47)
[2018-03-01] MEDS: FLORASTOR 250 MG CAPSULE PO SCH ×2 (10:47→20:19)
[2018-03-01] MEDS: AMLODIPINE 2.5 MG TABLET PO SCH ×2 (10:47→20:25)
[2018-03-01] MEDS: BUDESONIDE 0.5 MG/2 ML INHA NPPB SCH ×2 (11:35→19:40)
[2018-03-01 13:39] VITALS: BP 110/65
[2018-03-01 19:36] VITALS: BP 90/64
[2018-03-01] MEDS: LOVASTATIN 20 MG TABLET PO SCH (20:20)
[2018-03-02 01:57] VITALS: BP 107/62
[2018-03-02 06:57] VITALS: BP 114/67
[2018-03-02] MEDS: BUDESONIDE 0.5 MG/2 ML INHA NPPB SCH ×2 (09:00→19:32)
[2018-03-02] MEDS: POTASSIUM CHLORIDE 10 MEQ TABLET.ER PO SCH (09:51)
[2018-03-02] MEDS: FLORASTOR 250 MG CAPSULE PO SCH ×2 (09:51→20:27)
[2018-03-02] MEDS: LOSARTAN 50MG TABLET PO SCH ×2 (09:52→20:27)
[2018-03-02] MEDS: DILTIAZEM 120 MG CAP.ER.24H PO SCH (09:52)
[2018-03-02] MEDS: FUROSEMIDE 20 MG TABLET PO SCH ×2 (09:52→20:26)
[2018-03-02] MEDS: APIXABAN 2.5 MG TABLET PO SCH ×2 (09:52→20:27)
[2018-03-02] MEDS: AMLODIPINE 2.5 MG TABLET PO SCH ×2 (09:53→20:27)
[2018-03-02] MEDS: CIPROFLOXACIN 500 MG TABLET PO SCH ×2 (09:53→20:26)
[2018-03-02] MEDS: ALBUTEROL SULFATE 2.5 MG/3 ML NPPB PRN (10:02)
[2018-03-02 12:29] VITALS: BP 118/60
[2018-03-02 18:59] VITALS: BP 110/70
[2018-03-02] MEDS: LOVASTATIN 20 MG TABLET PO SCH (20:27)
[2018-03-03 02:12] VITALS: BP 126/68
[2018-03-03 07:34] VITALS: BP 115/73
[2018-03-03] MEDS: DILTIAZEM 120 MG CAP.ER.24H PO SCH (08:33)
[2018-03-03] MEDS: CIPROFLOXACIN 500 MG TABLET PO SCH (08:33)
[2018-03-03] MEDS: FLORASTOR 250 MG CAPSULE PO SCH (08:33)
[2018-03-03] MEDS: APIXABAN 2.5 MG TABLET PO SCH (08:34)
[2018-03-03] MEDS: POTASSIUM CHLORIDE 10 MEQ TABLET.ER PO SCH (08:34)
[2018-03-03] MEDS: AMLODIPINE 2.5 MG TABLET PO SCH (08:34)
[2018-03-03] MEDS: LOSARTAN 50MG TABLET PO SCH (08:34)
[2018-03-03] MEDS: FUROSEMIDE 20 MG TABLET PO SCH (08:34)
[2018-03-03] MEDS: BUDESONIDE 0.5 MG/2 ML INHA NPPB SCH (09:00)
[2018-03-03] MEDS ORDERED: CIPR500T87 PO (11:46)
[2018-03-03 12:30] VITALS: BP 109/65
== END 2018-03-03 17:58 | DRG 372 ==
LOC: ED 02:13 → EDIP 02:24 → 3NE 12:28
PROVIDERS: ADMIT Family Medicine; ATTEND Family Medicine
DX: A04.72 Enterocolitis due to Clostridium difficile, not specified as recurrent (principal); N39.0 Urinary tract infection, site not specified; E87.3 Alkalosis; I42.9 Cardiomyopathy, unspecified; I50.22 Chronic systolic (congestive) heart failure; I11.0 Hypertensive heart disease with heart failure; J44.9 Chronic obstructive pulmonary disease, unspecified; E10.9 Type 1 diabetes mellitus without complications; E78.5 Hyperlipidemia, unspecified; B96.5 Pseudomonas (aeruginosa) (mallei) (pseudomallei) as the cause of diseases classified elsewhere; I25.10 Atherosclerotic heart disease of native coronary artery without angina pectoris; I48.2 Chronic atrial fibrillation; K59.00 Constipation, unspecified; R62.7 Adult failure to thrive; Z66 Do not resuscitate; Z79.4 Long term (current) use of insulin; Z88.8 Allergy status to other drugs, medicaments and biological substances; Z80.1 Family history of malignant neoplasm of trachea, bronchus and lung; Z82.3 Family history of stroke; Z99.81 Dependence on supplemental oxygen
CPT/HCPCS: 36415; 71045; 74018; 80048; 80053; 81001; 83605; 83690; 84484; 85025; 87077; 87086; 87186; 87324; 87493; 89055; 93005; 94640; 99285; G0378; J1650; J7613; J7620; J7626

== ENCOUNTER → 2018-05-30 | Outpatient (CLI) | payer MEDICARE, MEDICAID ==
[~2018-05-30] MED LIST changes: +APIX2.5T PO; +CIPR500T87 PO
[2018-05-30 15:47] LABS: ANION GAP 5 mmol/L (5-15); CALCIUM 8.7 mg/dL (8.5-10.1); CHLORIDE 103 mmol/L (98-107); CREATININE 1.01 mg/dL (0.55-1.02)
== END | disposition home or self-care (01) ==
LOC: CFH 13:16
PROVIDERS: ATTEND Physician Assistant Medical
DX: E78.2 Mixed hyperlipidemia (principal); I48.91 Unspecified atrial fibrillation
CPT/HCPCS: 36415; 80048

== ENCOUNTER 2018-06-04 14:06 | Inpatient (IN) | payer MEDICARE, MEDICAID ==
[~2018-06-04] VITALS: Ht 152.4 cm; Wt 98.9 kg
--- NOTE | 2018-06-04 14:25 | NUR ---
PT BIB EMS FROM HOME FOR FEELING "SICK" SINCE SATURDAY, C/O NON-PRODUCTIVE COUGH, OCC. SHOOTING CHEST PAINS, CHILLS, PAINFUL URINATION. PT TREATED FOR A UTI AND PNA IN LAST 3 MONTH, WENT TO REHAB FOR 2 MONTHS, WAS RELEASED FROM [facility] SATURDAY. PT HAS A PACEMAKER, UNDERLYING AFIB HR 95-120 AT THIS TIME. PT WEARS 3L O2 BASELINE, ON 4L NOW BY EMS AT 95%. EKG DONE UPON ARRIVAL. DR. MEDLEY AT BEDSIDE FOR ASSESSMENT. LUNGS CLEAR ON AUSCULTATION.
--- NOTE | 2018-06-04 14:51 | NUR ---
MED REC DONE TO BEST OF PATIENT'S KNOWLEDGE.
[2018-06-04 15:26] LABS: INTERNATIONAL NORMALIZED RATIO 1.03 (0.93-1.1); PROTHROMBIN TIME 10.8 Seconds (9.6-11.5)
[2018-06-04 15:29] LABS: ALANINE AMINOTRANSFERASE 13 U/L (12-78); ALBUMIN 3.3 g/dL (3.4-5.0); ANION GAP 5 mmol/L (5-15); CALCIUM 8.7 mg/dL (8.5-10.1); CHLORIDE 104 mmol/L (98-107)
[2018-06-04 15:31] LABS: ALKALINE PHOSPHATASE 90 U/L (45-117); BILIRUBIN,TOTAL 0.2 mg/dL (0.2-1.0); CREATININE 1.06 mg/dL (0.55-1.02); TOTAL PROTEIN 7.1 g/dL (6.4-8.2)
[2018-06-04 15:35] LABS: MICROSCOPIC AUTO
--- NOTE | 2018-06-04 15:48 | NUR ---
STRAIGHT CATH DONE FOR URINE SAMPLE, URINE ORANGE, PT SAID SHE'S ON AZO. PT SAYS SHE'S HAD THIS BAD VAGINAL BURING URINATION FOR A WHILE, WHILE DOING STRAIGHT CATH ON PT ALL [place] SKIN VERY HOT RED, AREA WAS VERY TENDER, WHITE DISCHARGE NOTES AROUND AREA. PT SAYS SHE'S BEEN APPLYING "CREAM" BUT IT'S NOT HELPING.
[2018-06-04 15:55] LABS: CULTURE INDICATED? YES
[2018-06-04] MEDS ORDERED: FLUCONAZOLE 100 MG TABLET PO ONE ×2 (16:30→21:30)
--- NOTE | 2018-06-04 16:31 | NUR ---
LORNA LEYDI (SISTER) [phone]; PT OKAYED HER TO RECEIVE INFORMATION ABOUT HER CARE.
[2018-06-04 16:41] LABS: BASOPHILS # (AUTO) 0.02 x10^3/uL (0-0.1); BASOPHILS % (AUTO) 0 % (0-1); EOSINOPHILS # (AUTO) 0.81 x10^3/uL (0-0.4); EOSINOPHILS % (AUTO) 11 % (1-7); LYMPHOCYTES # (AUTO) 1.27 x10^3/uL (1-3.4); LYMPHOCYTES % (AUTO) 18 % (22-44); MD NO; MEAN CORPUSCULAR HEMOGLOBIN 23.9 pg (27.0-34.8); MEAN CORPUSCULAR HGB CONC 31.3 g/dL (32.4-35.8); MEAN CORPUSCULAR VOLUME 76.3 fL (80-100); MEAN PLATELET VOLUME 7.7 fL (7.4-10.4); MONOCYTES # (AUTO) 0.59 x10^3/uL (0.2-0.8); MONOCYTES % (AUTO) 8 % (2-9); NEUTROPHILS # (AUTO) 4.58 x10^3/uL (1.8-6.8); NEUTROPHILS % (AUTO) 63 % (42-75); PLATELET COUNT 317 x10^3/uL (130-400); RED BLOOD COUNT 4.83 x10^6/uL (3.82-5.3); RED CELL DISTRIBUTION WIDTH 16.4 % (9.6-15.2)
--- NOTE | 2018-06-04 16:57 | NUR ---
BACK TO BEDSIDE FOR REASSESSMENT. PT GOING TO BE ADMITTED FOR CONTINUED MONITORING. EXPLAINED TO PT ADMITTING PROCESS; VERBALIZED UNDERSTANDING. SISTER LORNA NOTIFIED PT GOING TO BE ADMITTED. PT USED BED CARL AGAIN. APPROX 400ML VOIDED. PT DENIES ANY OTHER NEEDS AT THIS TIME, RESTING COMFORTABLY WITH CALL LIGHT IN PLACE, CONTINUING TO MONITOR.
[2018-06-04 17:48] LABS: TROPONIN I < 0.015 ng/mL (0.000-0.045)
[2018-06-04] MEDS ORDERED: ONDANSETRON ODT 4 MG PO PRN (18:00)
[2018-06-04] MEDS ORDERED: ACETAMINOPHEN 325 MG TABLET PO PRN (18:00)
--- NOTE | 2018-06-04 19:12 | NUR ---
REPORT TO NOELLE FRANCOIS. PIV PLACED. EMERGENCY OPERATOR ASSISTED PT TO BEDSIDE COMMODE, PER EMERGENCY OPERATOR PT ABLE TO TRANSFER SELF WELL TO BEDSIDE COMMODE, STAND BY ASSIST. PT ABLE TO HAVE A BOWEL MOVEMENT. PT READY TO TRANSFER.
[2018-06-04 19:30] VITALS: BP 124/72
[2018-06-04] MEDS: NYSTATIN CRM 15GM TP SCH ×2 (21:00→22:45)
[2018-06-04] MEDS: TRIAMCINOLONE CRM 0.1%, 15GM TP SCH ×2 (21:00→22:45)
[2018-06-04] MEDS: APIXABAN 2.5 MG TABLET PO SCH (21:32)
[2018-06-04] MEDS: FUROSEMIDE 20 MG TABLET PO SCH (21:32)
[2018-06-04] MEDS: LOSARTAN 50MG TABLET PO SCH (21:33)
[2018-06-04] MEDS: AMLODIPINE 2.5 MG TABLET PO SCH (21:33)
[2018-06-05 00:18] LABS: CLOSTRIDIUM DIFFICILE ANTIGEN NEGATIVE; CLOSTRIDIUM DIFFICILE TOXIN NEGATIVE (Negative)
[2018-06-05 02:00] VITALS: BP 103/73
[2018-06-05] MEDS: metroNIDAZOLE 500 MG TABLET PO SCH ×3 (03:18→19:27)
[2018-06-05 04:11] VITALS: BP 124/72
[2018-06-05 04:55] LABS: BASOPHILS # (AUTO) 0.02 x10^3/uL (0-0.1); BASOPHILS % (AUTO) 0 % (0-1); EOSINOPHILS % (AUTO) 12 % (1-7); LYMPHOCYTES # (AUTO) 1.15 x10^3/uL (1-3.4); LYMPHOCYTES % (AUTO) 17 % (22-44); MD NO; MEAN CORPUSCULAR HEMOGLOBIN 24.6 pg (27.0-34.8); MEAN CORPUSCULAR HGB CONC 31.9 g/dL (32.4-35.8); MEAN CORPUSCULAR VOLUME 77.1 fL (80-100); MEAN PLATELET VOLUME 7.3 fL (7.4-10.4); MONOCYTES # (AUTO) 0.57 x10^3/uL (0.2-0.8); MONOCYTES % (AUTO) 9 % (2-9); NEUTROPHILS # (AUTO) 4.21 x10^3/uL (1.8-6.8); NEUTROPHILS % (AUTO) 62 % (42-75); PLATELET COUNT 301 x10^3/uL (130-400); RED BLOOD COUNT 4.48 x10^6/uL (3.82-5.3); RED CELL DISTRIBUTION WIDTH 16.4 % (9.6-15.2)
[2018-06-05 05:01] LABS: ANION GAP 4 mmol/L (5-15); CALCIUM 8.7 mg/dL (8.5-10.1); CHLORIDE 104 mmol/L (98-107); CREATININE 1.03 mg/dL (0.55-1.02)
[2018-06-05] MEDS: NYSTATIN MC SCH ×3 (05:30→21:30)
[2018-06-05] MEDS: TRIAMCINOLONE MC SCH ×3 (05:30→21:30)
[2018-06-05 07:02] VITALS: BP 123/65
[2018-06-05] MEDS: AMLODIPINE 2.5 MG TABLET PO SCH ×2 (08:37→22:49)
[2018-06-05] MEDS: POTASSIUM CHLORIDE 10 MEQ TABLET.ER PO SCH (08:37)
[2018-06-05] MEDS: DILTIAZEM 120 MG CAP.ER.24H PO SCH (08:37)
[2018-06-05] MEDS: LOVASTATIN 20 MG TABLET PO SCH (08:37)
[2018-06-05] MEDS: FUROSEMIDE 20 MG TABLET PO SCH ×2 (08:37→22:50)
[2018-06-05] MEDS: APIXABAN 2.5 MG TABLET PO SCH ×2 (08:37→22:49)
[2018-06-05] MEDS: LOSARTAN 50MG TABLET PO SCH ×2 (08:37→22:49)
[2018-06-05] MEDS: TRIAMCINOLONE CRM 0.1%, 15GM TP SCH (09:00)
[2018-06-05] MEDS ORDERED: FLUTICASONE/VILANTEROL 100-25MCG/INH INH SCH (09:00)
[2018-06-05] MEDS: NYSTATIN CRM 15GM TP SCH (09:00)
[2018-06-05] MEDS ORDERED: ALBUTEROL SULFATE 2.5 MG/3 ML NPPB PRN (11:30)
[2018-06-05 13:25] VITALS: BP 102/64
[2018-06-05 18:40] LABS: CLUE CELLS NONE SEEN (NONE SEEN); WET PREP WBCS FEW (FEW)
[2018-06-05 18:43] VITALS: BP 115/67
[2018-06-06 01:57] VITALS: BP 119/78
[2018-06-06] MEDS: metroNIDAZOLE 500 MG TABLET PO SCH ×3 (03:21→21:19)
[2018-06-06] MEDS: TRIAMCINOLONE MC SCH ×2 (05:30→13:30)
[2018-06-06] MEDS: NYSTATIN MC SCH ×2 (05:30→13:30)
[2018-06-06 06:39] VITALS: BP 121/75
[2018-06-06] MEDS: BUDESONIDE 0.5 MG/2 ML INHA INH SCH ×2 (09:00→21:00)
[2018-06-06] MEDS: ALBUTEROL SULFATE 2.5 MG/3 ML NPPB SCH ×3 (09:00→21:00)
[2018-06-06] MEDS: LOVASTATIN 20 MG TABLET PO SCH (10:42)
[2018-06-06] MEDS: DILTIAZEM 120 MG CAP.ER.24H PO SCH (10:42)
[2018-06-06] MEDS: AMLODIPINE 2.5 MG TABLET PO SCH ×2 (10:42→21:19)
[2018-06-06] MEDS: POTASSIUM CHLORIDE 10 MEQ TABLET.ER PO SCH (10:42)
[2018-06-06] MEDS: FUROSEMIDE 20 MG TABLET PO SCH ×2 (10:42→21:20)
[2018-06-06] MEDS: APIXABAN 2.5 MG TABLET PO SCH ×2 (10:42→21:19)
[2018-06-06] MEDS: LOSARTAN 50MG TABLET PO SCH ×2 (10:42→21:19)
[2018-06-06 12:29] VITALS: BP 125/71
[2018-06-06] MEDS: NYSTATIN CRM 15GM TP PRN ×2 (13:43→19:21)
[2018-06-06 18:35] VITALS: BP 114/62
[2018-06-07 01:37] VITALS: BP 111/68
[2018-06-07] MEDS: metroNIDAZOLE 500 MG TABLET PO SCH ×3 (06:06→20:24)
[2018-06-07 08:39] VITALS: BP 106/76
[2018-06-07] MEDS: DILTIAZEM 120 MG CAP.ER.24H PO SCH (09:02)
[2018-06-07] MEDS: POTASSIUM CHLORIDE 10 MEQ TABLET.ER PO SCH (09:02)
[2018-06-07] MEDS: LOVASTATIN 20 MG TABLET PO SCH (09:02)
[2018-06-07] MEDS: FUROSEMIDE 20 MG TABLET PO SCH ×2 (09:02→20:23)
[2018-06-07] MEDS: APIXABAN 2.5 MG TABLET PO SCH ×2 (09:02→20:23)
[2018-06-07] MEDS: AMLODIPINE 2.5 MG TABLET PO SCH ×2 (09:02→20:23)
[2018-06-07] MEDS: LOSARTAN 50MG TABLET PO SCH ×2 (09:02→20:23)
[2018-06-07] MEDS: BUDESONIDE 0.5 MG/2 ML INHA INH SCH ×2 (11:18→22:35)
[2018-06-07] MEDS: ALBUTEROL SULFATE 2.5 MG/3 ML NPPB SCH ×3 (11:19→22:35)
[2018-06-07 12:53] VITALS: BP 110/71
[2018-06-07] MEDS ORDERED: NYST15CR33 TP (14:08)
[2018-06-07] MEDS ORDERED: METR500T PO (14:08)
[2018-06-07 20:05] VITALS: BP 126/69
[2018-06-07] MEDS: NYSTATIN CRM 15GM TP PRN (20:25)
[2018-06-08 01:39] VITALS: BP 127/65
[2018-06-08] MEDS: metroNIDAZOLE 500 MG TABLET PO SCH (04:29)
[2018-06-08 06:47] VITALS: BP 103/56
[2018-06-08] MEDS: ALBUTEROL SULFATE 2.5 MG/3 ML NPPB SCH (09:30)
[2018-06-08] MEDS: BUDESONIDE 0.5 MG/2 ML INHA INH SCH (09:30)
[2018-06-08] MEDS: APIXABAN 2.5 MG TABLET PO SCH (09:34)
[2018-06-08] MEDS: POTASSIUM CHLORIDE 10 MEQ TABLET.ER PO SCH (09:35)
[2018-06-08] MEDS: LOSARTAN 50MG TABLET PO SCH (09:35)
[2018-06-08] MEDS: DILTIAZEM 120 MG CAP.ER.24H PO SCH (09:35)
[2018-06-08] MEDS: LOVASTATIN 20 MG TABLET PO SCH (09:35)
[2018-06-08] MEDS: FUROSEMIDE 20 MG TABLET PO SCH (09:35)
[2018-06-08] MEDS: AMLODIPINE 2.5 MG TABLET PO SCH (09:35)
== END 2018-06-08 11:19 | disposition home health service (06) | DRG 757 ==
LOC: ED 15:58 → EDIP 16:40 → 3NE 19:22
PROVIDERS: ADMIT Family Medicine; ATTEND Family Medicine
PROC: 0T9B70Z Drainage of Bladder with Drainage Device, Via Natural or Artificial Opening (ICD-10-PCS; principal; 2018-06-04)
DX: N76.0 Acute vaginitis (principal); E43 Unspecified severe protein-calorie malnutrition; I42.9 Cardiomyopathy, unspecified; J44.1 Chronic obstructive pulmonary disease with (acute) exacerbation; I11.0 Hypertensive heart disease with heart failure; I50.9 Heart failure, unspecified; Z66 Do not resuscitate; I48.2 Chronic atrial fibrillation; N76.2 Acute vulvitis; Z79.4 Long term (current) use of insulin; Z80.1 Family history of malignant neoplasm of trachea, bronchus and lung; Z82.3 Family history of stroke; Z95.0 Presence of cardiac pacemaker; Z88.8 Allergy status to other drugs, medicaments and biological substances; Z95.810 Presence of automatic (implantable) cardiac defibrillator; Z99.81 Dependence on supplemental oxygen; I25.2 Old myocardial infarction
CPT/HCPCS: 36415; 71045; 72170; 80048; 80053; 81001; 83605; 83735; 84100; 84134; 84145; 84443; 84484; 85025; 85610; 85730; 87040; 87086; 87210; 87324; 87808; 93005; 94640; 99285; G0378; J7613; J7626

== ENCOUNTER 2018-07-28 11:58 | Inpatient (IN) | payer MEDICARE, MEDICAID ==
[~2018-07-28] VITALS: Ht 152.4 cm; Wt 100.5 kg
[~2018-07-28 11:58] MED LIST changes: +METR500T PO; +NYST15CR33 TP
--- NOTE | 2018-07-28 12:12 | NUR ---
Pt c/o R lower dental pain x1 week. Pt states she has an appointment on the of this month. Pt states "I can't wait that long, the pain is too bad." Pt rates pain as 10/10. Pt positioned for comfort in bed, continuous oxygen and BP monitors applied, all safety measures observed.
[2018-07-28] MEDS ORDERED: ASPIRIN 81 MG TABLET CHEW PO ONE (12:30)
[2018-07-28 13:01] LABS: BASOPHILS # (AUTO) 0.08 x10^3/uL (0-0.1); BASOPHILS % (AUTO) 1 % (0-1); EOSINOPHILS # (AUTO) 0.63 x10^3/uL (0-0.4); EOSINOPHILS % (AUTO) 11 % (1-7); LYMPHOCYTES # (AUTO) 1.36 x10^3/uL (1-3.4); LYMPHOCYTES % (AUTO) 23 % (22-44); MD NO; MEAN CORPUSCULAR HEMOGLOBIN 25.1 pg (27.0-34.8); MEAN CORPUSCULAR HGB CONC 31.6 g/dL (32.4-35.8); MEAN CORPUSCULAR VOLUME 79.3 fL (80-100); MONOCYTES # (AUTO) 0.59 x10^3/uL (0.2-0.8); MONOCYTES % (AUTO) 10 % (2-9); NEUTROPHILS # (AUTO) 3.14 x10^3/uL (1.8-6.8); NEUTROPHILS % (AUTO) 54 % (42-75); PLATELET COUNT 277 x10^3/uL (130-400); RED BLOOD COUNT 4.54 x10^6/uL (3.82-5.3); RED CELL DISTRIBUTION WIDTH 18.2 % (9.6-15.2)
[2018-07-28] MEDS ORDERED: ASPIRIN 81 MG TABLET CHEW ONE (13:08)
[2018-07-28 13:11] LABS: ALBUMIN 3.5 g/dL (3.4-5.0); ANION GAP 3 mmol/L (5-15); CALCIUM 8.5 mg/dL (8.5-10.1); CHLORIDE 105 mmol/L (98-107); CREATININE 1.08 mg/dL (0.55-1.02)
[2018-07-28 13:14] LABS: TROPONIN I < 0.015 ng/mL (0.000-0.045)
--- NOTE | 2018-07-28 13:21 | NUR ---
Pt states that when the PA was at bedside to evaluate pt. Pt states started having heaviness in chest. Pt Placed on green marketing analyst and medicated per APR. Pt resting in bed, speaking in full sentences, resp even and unlabored, NADN.
[2018-07-28] MEDS ORDERED: HYDROcodone/APAP 5/325 TABLET PO ONE (13:30)
--- NOTE | 2018-07-28 13:50 | NUR ---
task rn: PIV ESTABLISHED. PT TOLERATED WITH NO COMPLICATIONS. UNR BEDSIDE. EKG IN PROGRESS. NO NEEDS REQUESTED AT THIS TIME.
[2018-07-28] MEDS ORDERED: HYDROcodone/APAP 5/325 TABLET ONE (14:31)
--- NOTE | 2018-07-28 14:34 | NUR ---
Pt medicated per MAR, denies other needs.
[2018-07-28] MEDS ORDERED: POLYETHYLENE GLYCOL 17 GM PACKET PO PRN (15:00)
[2018-07-28] MEDS ORDERED: ACETAMINOPHEN 325 MG TABLET PO PRN (15:00)
[2018-07-28] MEDS ORDERED: DILTIAZEM 5 MG/ML, 5ML IVPush PRN (15:00)
--- NOTE | 2018-07-28 15:06 | NUR ---
Hospital bed requested for pt.
--- NOTE | 2018-07-28 16:58 | NUR ---
Pt assisted to bedside commode to void and placed in hospital bed. Pt positioned for comfort in bed, denies other needs. Lights in room dimmed and door closed per request.
--- NOTE | 2018-07-28 17:23 | NUR ---
SBAR RPT REC'D FROM JORGE, RN AND PT CARE ASSUMED. PT IN HOSPITAL BED, VSS. PT INFORMED THAT MEAL TRAY HAS BEEN ORDERED. BED ASSIGNMENT STILL PENDING
[2018-07-28 18:53] LABS: TROPONIN I < 0.015 ng/mL (0.000-0.045)
[2018-07-28 19:09] VITALS: BP 110/67
[2018-07-28] MEDS ORDERED: ALBUTEROL SULFATE 2.5 MG/3 ML NPPB PRN ×2 (19:30)
[2018-07-28] MEDS ORDERED: IBUPROFEN 200 MG TABLET PO PRN (20:00)
[2018-07-28] MEDS ORDERED: HYDROcodone/APAP 5/325 TABLET PO PRN (20:00)
[2018-07-28 22:53] VITALS: BP 120/67
[2018-07-28] MEDS: AMLODIPINE 2.5 MG TABLET PO SCH (22:58)
[2018-07-28] MEDS: FUROSEMIDE 20 MG TABLET PO SCH (22:58)
[2018-07-28] MEDS: POTASSIUM CHLORIDE 10 MEQ TABLET.ER PO SCH (22:58)
[2018-07-28] MEDS: FAMOTIDINE 20 MG TABLET PO SCH (22:59)
[2018-07-28] MEDS: APIXABAN 2.5 MG TABLET PO SCH (22:59)
[2018-07-28] MEDS: LOSARTAN 50MG TABLET PO SCH (22:59)
[2018-07-29 00:48] VITALS: BP 106/55
[2018-07-29] MEDS ORDERED: IBUPROFEN 600 MG TABLET ONE (01:19)
[2018-07-29] MEDS: MICONAZOLE 7 VAG. CRM 2%, 45GM VG SCH ×2 (02:06→20:54)
[2018-07-29 03:20] LABS: ANION GAP 5 mmol/L (5-15); CALCIUM 8.4 mg/dL (8.5-10.1); CHLORIDE 106 mmol/L (98-107); CREATININE 1.05 mg/dL (0.55-1.02)
[2018-07-29 03:24] LABS: TROPONIN I < 0.015 ng/mL (0.000-0.045)
[2018-07-29 06:15] LABS: MICROSCOPIC INDICATED
[2018-07-29 07:17] VITALS: BP 108/67
[2018-07-29] MEDS: FLUTICASONE/VILANTEROL 100-25MCG/INH INH SCH (08:50)
[2018-07-29] MEDS: APIXABAN 2.5 MG TABLET PO SCH ×2 (08:58→20:45)
[2018-07-29] MEDS: POTASSIUM CHLORIDE 10 MEQ TABLET.ER PO SCH ×2 (08:58→20:45)
[2018-07-29] MEDS: LOVASTATIN 20 MG TABLET PO SCH (08:58)
[2018-07-29] MEDS: LOSARTAN 50MG TABLET PO SCH ×2 (08:58→21:00)
[2018-07-29] MEDS: FUROSEMIDE 20 MG TABLET PO SCH ×2 (08:58→20:45)
[2018-07-29] MEDS: AMLODIPINE 2.5 MG TABLET PO SCH ×2 (08:59→21:00)
[2018-07-29] MEDS: FAMOTIDINE 20 MG TABLET PO SCH ×2 (08:59→20:46)
[2018-07-29] MEDS: DILTIAZEM 120 MG CAP.ER.24H PO SCH (08:59)
[2018-07-29 09:03] VITALS: BP 118/64
[2018-07-29] MEDS: HYDROcodone/APAP 5/325 TABLET PO PRN ×3 (11:01→23:49)
[2018-07-29 12:49] VITALS: BP 123/74
[2018-07-29 18:51] VITALS: BP 105/65
[2018-07-29 20:57] VITALS: BP 98/60
[2018-07-30 00:26] VITALS: BP 110/66
[2018-07-30 05:35] LABS: ANION GAP 4 mmol/L (5-15); CALCIUM 8.6 mg/dL (8.5-10.1); CHLORIDE 104 mmol/L (98-107)
[2018-07-30 05:37] LABS: CREATININE 1.03 mg/dL (0.55-1.02)
[2018-07-30 07:34] VITALS: BP 125/86
[2018-07-30] MEDS: FLUTICASONE/VILANTEROL 100-25MCG/INH INH SCH (09:00)
[2018-07-30] MEDS ORDERED: AMLODIPINE 2.5 MG TABLET PO SCH (09:00)
[2018-07-30] MEDS ORDERED: LOSARTAN 50MG TABLET PO SCH ×2 (09:00)
[2018-07-30] MEDS: AMLODIPINE 2.5 MG TABLET PO SCH ×2 (09:56→21:35)
[2018-07-30] MEDS: POTASSIUM CHLORIDE 10 MEQ TABLET.ER PO SCH ×2 (09:56→21:36)
[2018-07-30] MEDS: HYDROcodone/APAP 5/325 TABLET PO PRN ×2 (09:56→16:31)
[2018-07-30] MEDS: FAMOTIDINE 20 MG TABLET PO SCH ×2 (09:56→21:36)
[2018-07-30] MEDS: DILTIAZEM 120 MG CAP.ER.24H PO SCH (09:57)
[2018-07-30] MEDS: FUROSEMIDE 20 MG TABLET PO SCH ×2 (09:57→21:36)
[2018-07-30] MEDS: APIXABAN 2.5 MG TABLET PO SCH ×2 (09:57→21:36)
[2018-07-30] MEDS: LOVASTATIN 20 MG TABLET PO SCH (09:57)
[2018-07-30 13:27] VITALS: BP 100/65
[2018-07-30] MEDS: PENICILLIN VK 250 MG PO SCH ×2 (16:31→21:36)
[2018-07-30 16:46] LABS: CLUE CELLS NONE SEEN (NONE SEEN); WET PREP WBCS FEW (FEW)
[2018-07-30 19:20] VITALS: BP 112/54
[2018-07-30] MEDS ORDERED: MICONAZOLE 7 VAG. CRM 2%, 45GM VG SCH (21:00)
[2018-07-30] MEDS: LOSARTAN 25MG TABLET PO SCH (21:36)
[2018-07-31 01:50] VITALS: BP 92/61
[2018-07-31] MEDS: HYDROcodone/APAP 5/325 TABLET PO PRN ×2 (02:14→09:47)
[2018-07-31] MEDS: PENICILLIN VK 250 MG PO SCH ×2 (05:53→11:00)
[2018-07-31] MEDS ORDERED: LOSA50TA14 PO (07:19)
[2018-07-31] MEDS ORDERED: DILT120C9 PO (07:19)
[2018-07-31] MEDS ORDERED: PENI250T91 PO (07:19)
[2018-07-31 07:25] VITALS: BP 105/68
[2018-07-31] MEDS ORDERED: DILTIAZEM CD 180 MG CAP.ER.24H PO SCH (09:00)
[2018-07-31] MEDS: FLUTICASONE/VILANTEROL 100-25MCG/INH INH SCH (09:00)
[2018-07-31] MEDS: LOVASTATIN 20 MG TABLET PO SCH (09:47)
[2018-07-31] MEDS: APIXABAN 2.5 MG TABLET PO SCH (09:47)
[2018-07-31] MEDS: POTASSIUM CHLORIDE 10 MEQ TABLET.ER PO SCH (09:47)
[2018-07-31] MEDS: LOSARTAN 25MG TABLET PO SCH (09:47)
[2018-07-31] MEDS: AMLODIPINE 2.5 MG TABLET PO SCH (09:47)
[2018-07-31] MEDS: FUROSEMIDE 20 MG TABLET PO SCH (09:48)
[2018-07-31] MEDS: FAMOTIDINE 20 MG TABLET PO SCH (09:48)
== END 2018-07-31 12:25 | DRG 758 ==
LOC: ED 13:59 → EDIP 15:17 → 4WST 18:45
PROVIDERS: ADMIT Family Medicine; ATTEND Family Medicine
DX: N76.0 Acute vaginitis (principal); I50.30 Unspecified diastolic (congestive) heart failure; I48.91 Unspecified atrial fibrillation; E78.5 Hyperlipidemia, unspecified; G47.30 Sleep apnea, unspecified; Z66 Do not resuscitate; I11.0 Hypertensive heart disease with heart failure; I34.0 Nonrheumatic mitral (valve) insufficiency; I49.3 Ventricular premature depolarization; J44.9 Chronic obstructive pulmonary disease, unspecified; I50.9 Heart failure, unspecified; K08.89 Other specified disorders of teeth and supporting structures; Z79.01 Long term (current) use of anticoagulants; Z79.4 Long term (current) use of insulin; Z80.1 Family history of malignant neoplasm of trachea, bronchus and lung; Z99.81 Dependence on supplemental oxygen; Z82.3 Family history of stroke; Z88.8 Allergy status to other drugs, medicaments and biological substances
CPT/HCPCS: 36415; 71046; 80048; 81001; 82040; 83880; 84484; 85025; 87210; 87808; 93005; 93306; 99285; G0378

== ENCOUNTER 2018-10-28 10:46 | Outpatient (CLI) | payer MEDICARE, MEDICAID ==
[~2018-10-28 10:46] MED LIST changes: +PENI250T91 PO
[2018-10-28 16:00] LABS: ALBUMIN 3.6 g/dL (3.4-5.0); CALCIUM 8.8 mg/dL (8.5-10.1); CHLORIDE 106 mmol/L (98-107)
[2018-10-28 16:03] LABS: ALANINE AMINOTRANSFERASE 19 U/L (12-78); ALKALINE PHOSPHATASE 67 U/L (45-117); ANION GAP 5 mmol/L (5-15); BILIRUBIN,TOTAL 0.5 mg/dL (0.2-1.0); CHOL/HDL RATIO 2.7; CHOLESTEROL, TOTAL 142 mg/dL (140-239); CREATININE 0.99 mg/dL (0.55-1.02); HDL CHOL % 37 % (28-40); HDL CHOLESTEROL (DIRECT) 52 mg/dL (40-60); LDL CHOLESTEROL,CALCULATED 67 mg/dL (54-169); LDL/HDL RATIO 1.3 (0.5-3.0); TOTAL PROTEIN 7.4 g/dL (6.4-8.2); TRIGLYCERIDES 116 mg/dL (50-200); VLDL CHOLESTEROL 23 mg/dL (0-25)
== END 2018-10-28 23:59 | disposition home or self-care (01) ==
LOC: CFH 10:46
PROVIDERS: ATTEND Internal Medicine Cardiovascular Disease
DX: E78.5 Hyperlipidemia, unspecified (principal)
CPT/HCPCS: 36415; 80053; 80061

== ENCOUNTER 2019-03-11 12:09 | Emergency (ER) | payer MEDICARE, MEDICAID ==
[~2019-03-11] VITALS: Ht 152.4 cm; Wt 105.0 kg
[~2019-03-11 12:09] MED LIST changes: +DILT120C48 PO; -DILT120C9 PO
--- NOTE | 2019-03-11 12:30 | NUR ---
late entry d/t patient care: PT BIBA FROM HOME ([facility]) FOR INTERMITTENT DIFFUSE STABBING CP. PT HAS HAD THIS OFF AND ON X 1 MONTH, NOTED THIS EPISODE STARTING AT 1115 THIS AM. PT DENIES SOB BEYOND BASELINE (HX COPD). PT IS A&OX4, RESPS EVEN AND UNLABORED. PER EMS, PT WAS AFIB RATE 90-100, HOWEVER HAD PERIODS OF TACHYCARDIA RATE 150'S SEEN WITH PACER SPIKES. THIS RHYTHM STRIP WAS SAVED AND SHOWED TO AMBER CLEMENTE. PT PLACED ON ALL MONITORS, PT IS AFIB RATE 90'S WITH OCC PACED BEAT NOTED. NO RECURRANCE OF SIMILAR TACHYARRYTHMIA. PT DENIES PAIN ON ARRIVAL. EKG TAKEN ON ARRIVAL AND REVIEWED BY ERP. AWAITING ORDERS AT THIS TIME.
[2019-03-11 12:58] LABS: BASOPHILS # (AUTO) 0.04 x10^3/uL (0-0.1); BASOPHILS % (AUTO) 1 % (0-1); EOSINOPHILS # (AUTO) 0.87 x10^3/uL (0-0.4); EOSINOPHILS % (AUTO) 14 % (1-7); LYMPHOCYTES # (AUTO) 1.46 x10^3/uL (1-3.4); LYMPHOCYTES % (AUTO) 24 % (22-44); MD NO; MEAN CORPUSCULAR HEMOGLOBIN 26.6 pg (27.0-34.8); MEAN CORPUSCULAR HGB CONC 31.6 g/dL (32.4-35.8); MEAN CORPUSCULAR VOLUME 84.2 fL (80-100); MEAN PLATELET VOLUME 6.9 fL (7.4-10.4); MONOCYTES # (AUTO) 0.56 x10^3/uL (0.2-0.8); MONOCYTES % (AUTO) 9 % (2-9); NEUTROPHILS # (AUTO) 3.17 x10^3/uL (1.8-6.8); NEUTROPHILS % (AUTO) 52 % (42-75); PLATELET COUNT 274 x10^3/uL (130-400); RED BLOOD COUNT 4.26 x10^6/uL (3.82-5.3); RED CELL DISTRIBUTION WIDTH 15.4 % (9.6-15.2)
[2019-03-11] MEDS ORDERED: SODIUM CHLORIDE FLUSH 10ML SYR IVF ONE (13:00)
[2019-03-11 13:09] LABS: ALANINE AMINOTRANSFERASE 14 U/L (12-78); ALBUMIN 3.3 g/dL (3.4-5.0); ANION GAP 4 mmol/L (5-15); CALCIUM 8.6 mg/dL (8.5-10.1); CHLORIDE 109 mmol/L (98-107); CREATININE 0.95 mg/dL (0.55-1.02)
[2019-03-11 13:13] LABS: ALKALINE PHOSPHATASE 74 U/L (45-117); BILIRUBIN,TOTAL 0.3 mg/dL (0.2-1.0); TROPONIN I < 0.015 ng/mL (0.000-0.045)
[2019-03-11 13:52] VITALS: BP 133/53
--- NOTE | 2019-03-11 13:56 | NUR ---
REVIEW OF CHART, ASSUME CARE OF PT AT THIS TIME. ALL RESULTS BACK, PT FOR RECHECK.
--- NOTE | 2019-03-11 14:00 | NUR ---
report given to PRISCILA Witt at bedside. pt a&o, resps even and unlabored. pt is afib rate 80-90 on pvc monitor, no ectopy noted. all monitors in place. pt denies pain at this time.
--- NOTE | 2019-03-11 15:37 | NUR ---
DANIAL DAUGHTER NEEDS TO BE INFORMED PRIOR TO PATIENT ARRIVING AT THE HOUSE SHE HAS THE KEYS TO THE HOUSE.
--- NOTE | 2019-03-11 15:40 | NUR ---
PT GIVEN DC PAPERWORK, [facility] UNABLE TO TAKE PT HOME. PT DID NOT BRING OXYGEN CANISTER WITH HER AND WILL NEED ASSISTANCE GETTING IN/OUT OF TRANSPORTATION AND INTO APARTMENT. PT DENIES ANY FAMILY HERE IN TOWN. CALL FROM DTR, STATING SHE IS UNABLE TO GET PT IN/OUT OF CAR DUE TO SIZE AND DISABILITY. THROUGHPUT RN AWARE AND IS WORKING ON TRANSPO HOME.
--- NOTE | 2019-03-11 16:54 | NUR ---
GONZALO paged on patients behalf as she has medicaid as a secondary insurance and therefore [facility] asked for [facility]'s auth. All information provided at this time and [facility] states they will arrange transport via ambulance.
--- NOTE | 2019-03-11 19:11 | NUR ---
CALL TO JASPER WHO IS AT PT'S HOUSE AT THIS TIME. REPORT TO PADMA YARBROUGH D/C'D FROM ER.
== END 2019-03-11 19:14 | disposition home or self-care (01) ==
LOC: ED 14:21
DX: R07.89 Other chest pain (principal); I11.0 Hypertensive heart disease with heart failure; I50.9 Heart failure, unspecified; I48.91 Unspecified atrial fibrillation; J44.9 Chronic obstructive pulmonary disease, unspecified; E78.5 Hyperlipidemia, unspecified; Z90.49 Acquired absence of other specified parts of digestive tract; Z88.2 Allergy status to sulfonamides; Z88.8 Allergy status to other drugs, medicaments and biological substances
CPT/HCPCS: 36415; 71045; 80053; 83735; 83880; 84484; 85025; 93005; 99284

== ENCOUNTER 2019-04-19 05:18 | Emergency (ER) | payer MEDICARE, MEDICAID ==
[~2019-04-19] VITALS: Ht 152.4 cm; Wt 104.5 kg
[2019-04-19] MEDS ORDERED: SODIUM CHLORIDE FLUSH 10ML SYR IVF ONE (05:30)
[2019-04-19 05:52] LABS: RAPID INFLUENZA A Negative (Negative); RAPID INFLUENZA B Negative (Negative)
[2019-04-19 06:04] LABS: BASOPHILS # (AUTO) 0.07 x10^3/uL (0-0.1); BASOPHILS % (AUTO) 1 % (0-1); EOSINOPHILS # (AUTO) 0.83 x10^3/uL (0-0.4); EOSINOPHILS % (AUTO) 11 % (1-7); LYMPHOCYTES # (AUTO) 1.43 x10^3/uL (1-3.4); LYMPHOCYTES % (AUTO) 18 % (22-44); MD NO; MEAN CORPUSCULAR HEMOGLOBIN 26.3 pg (27.0-34.8); MEAN CORPUSCULAR HGB CONC 31.8 g/dL (32.4-35.8); MEAN CORPUSCULAR VOLUME 82.6 fL (80-100); MEAN PLATELET VOLUME 6.6 fL (7.4-10.4); MONOCYTES # (AUTO) 0.72 x10^3/uL (0.2-0.8); MONOCYTES % (AUTO) 9 % (2-9); NEUTROPHILS # (AUTO) 4.82 x10^3/uL (1.8-6.8); NEUTROPHILS % (AUTO) 61 % (42-75); PLATELET COUNT 287 x10^3/uL (130-400); RED BLOOD COUNT 4.22 x10^6/uL (3.82-5.3); RED CELL DISTRIBUTION WIDTH 15.1 % (9.6-15.2)
[2019-04-19 06:13] LABS: ALBUMIN 3.4 g/dL (3.4-5.0); ANION GAP 3 mmol/L (5-15); CALCIUM 8.8 mg/dL (8.5-10.1); CHLORIDE 105 mmol/L (98-107); CREATININE 0.87 mg/dL (0.55-1.02)
[2019-04-19 06:33] VITALS: BP 120/52
--- NOTE | 2019-04-19 06:54 | NUR ---
REPORT RECEIVED FROM CAMDEN FRANCOIS.
--- NOTE | 2019-04-19 07:53 | NUR ---
this rn paged rt for oxygen tank [place]o for pt.
--- NOTE | 2019-04-19 07:54 | NUR ---
Patient given discharge instructions and they have confirmed that they understand the instructions.
--- NOTE | 2019-04-19 08:45 | NUR ---
PT'S DAUGHTER'S NUMBER [phone]
--- NOTE | 2019-04-19 09:15 | NUR ---
lisa rn called her daughter and her daughter knows what time pt will be back home by taxi.
--- NOTE | 2019-04-19 10:13 | NUR ---
[employer] hasn't came here yet for pt. this rn and emt called [employer] and it takes 15-20 min more d/t snow. this rn talked to Sam fajardo. pt need [facility]. this rn also called her daughter as well.
--- NOTE | 2019-04-19 10:23 | NUR ---
Don rn spoke to [facility] and they can't come here to pick her up until 11am. Pt needs to wait for taxi. this rn called her daughter to up date.
--- NOTE | 2019-04-19 10:48 | NUR ---
pt in taxi now. this rn called her daughter.
== END 2019-04-19 08:04 | disposition home or self-care (01) ==
LOC: ED 06:18
DX: J06.9 Acute upper respiratory infection, unspecified (principal); J44.9 Chronic obstructive pulmonary disease, unspecified; I48.91 Unspecified atrial fibrillation; I10 Essential (primary) hypertension; E78.5 Hyperlipidemia, unspecified; Z90.49 Acquired absence of other specified parts of digestive tract; Z95.0 Presence of cardiac pacemaker
CPT/HCPCS: 36415; 71045; 80048; 82040; 83605; 83880; 84145; 85025; 87040; 87400; 93005; 99285

== ENCOUNTER 2019-04-26 11:40 | Observation (INO) | payer MEDICARE, MEDICAID ==
[~2019-04-26] VITALS: Ht 152.4 cm; Wt 109.8 kg
[2019-04-26] MEDS ORDERED: SODIUM CHLORIDE FLUSH 10ML SYR IVF ONE (12:00)
[2019-04-26 12:26] LABS: BASOPHILS # (AUTO) 0.03 x10^3/uL (0-0.1); BASOPHILS % (AUTO) 0 % (0-1); EOSINOPHILS % (AUTO) 6 % (1-7); LYMPHOCYTES # (AUTO) 1.21 x10^3/uL (1-3.4); LYMPHOCYTES % (AUTO) 15 % (22-44); MD NO; MEAN CORPUSCULAR HEMOGLOBIN 26.4 pg (27.0-34.8); MEAN CORPUSCULAR HGB CONC 31.7 g/dL (32.4-35.8); MEAN CORPUSCULAR VOLUME 83.6 fL (80-100); MEAN PLATELET VOLUME 6.8 fL (7.4-10.4); MONOCYTES % (AUTO) 10 % (2-9); NEUTROPHILS # (AUTO) 5.69 x10^3/uL (1.8-6.8); NEUTROPHILS % (AUTO) 69 % (42-75); PLATELET COUNT 288 x10^3/uL (130-400); RED BLOOD COUNT 3.98 x10^6/uL (3.82-5.3); RED CELL DISTRIBUTION WIDTH 15.2 % (9.6-15.2)
[2019-04-26 12:34] LABS: ALBUMIN 3.1 g/dL (3.4-5.0); ANION GAP 3 mmol/L (5-15); CALCIUM 8.4 mg/dL (8.5-10.1); CHLORIDE 101 mmol/L (98-107)
[2019-04-26 12:36] LABS: CREATININE 0.83 mg/dL (0.55-1.02)
--- NOTE | 2019-04-26 13:11 | NUR ---
PT RESTING ON GURNEY, A&O, NEURO INTACT, AFIB RATE 90-100 WITH OCC PVC. AWAITING BREATHING TX AND DISPO. RT HAS BEEN PAGED. EDMD TLBIBBER AT BEDSIDE TO UPDATE PT WITH POC AND RESULTS.
[2019-04-26] MEDS ORDERED: ALBUTEROL/IPRATROPIUM 2.5MG/0.5MG, 3 ML ONE (13:26)
[2019-04-26] MEDS ORDERED: methylPREDNISolone SOD SUCC 125 MG/2 ML IVPush ONE (13:30)
[2019-04-26] MEDS ORDERED: ALBUTEROL/IPRATROPIUM 2.5MG/0.5MG, 3 ML NPPB ONE (13:30)
[2019-04-26] MEDS ORDERED: ENOXAPARIN 30 MG/0.3 ML SQ SCH (14:00)
[2019-04-26] MEDS ORDERED: ONDANSETRON 2MG/ML, 2ML IVPush PRN (14:00)
[2019-04-26] MEDS ORDERED: ONDANSETRON ODT 4 MG PO PRN (14:00)
[2019-04-26] MEDS ORDERED: IBUPROFEN 600 MG TABLET PO PRN (14:00)
[2019-04-26] MEDS ORDERED: ACETAMINOPHEN 325 MG TABLET PO PRN (14:00)
--- NOTE | 2019-04-26 14:00 | NUR ---
LATE ENTRY D/T PATIENT CARE: PT REPORTS MARGINAL IMPROVEMENT OF SOB WITH BREATHING TX. PT A&O, RESPS EVEN AND UNLABORED, NO COMPLAINT AT THIS TIME.
[2019-04-26] MEDS ORDERED: LORazepam 2 MG/ML, 1ML ONE (14:03)
[2019-04-26] MEDS ORDERED: AZITHROMYCIN 500 MG TABLET PO ONE (14:30)
[2019-04-26] MEDS ORDERED: AZITHROMYCIN 500 MG TABLET ONE (14:35)
[2019-04-26] MEDS ORDERED: methylPREDNISolone SOD SUCC 125 MG/2 ML ONE (14:35)
--- NOTE | 2019-04-26 14:42 | NUR ---
BEDSIDE SWALLOW EVAL COMPLETED. PT MEDICATED PER EMAR, TOLERATED WELL. PT UNABLE TO RECALL HOME MEDS. PT STATES "THEY HAVEN'T CHANGED SINCE THE LAST TIME I WAS HERE." PT A&O, RESPS EVEN AND UNLABORED. NADN. AWAITNG MED TELE BED ASSIGNMENT AND TRANSPORT.
--- NOTE | 2019-04-26 15:02 | NUR ---
REPORT GIVEN TO PRISCILA MARCUS WHO IS RECEIVING PT, PT AWIATING TRANSPORT TO MED TELE AT THIS TME. RECEIVING RN AWARE OF NEED TO REVIEW PTS HOME MEDS WITH PT'S PHARMACY.
[2019-04-26 15:12] LABS: TROPONIN I < 0.015 ng/mL (0.000-0.045)
[2019-04-26] MEDS ORDERED: ALBUTEROL/IPRATROPIUM 2.5MG/0.5MG, 3 ML HHN PRN (15:30)
[2019-04-26 15:35] VITALS: BP 151/71
[2019-04-26] MEDS: ALBUTEROL SULFATE 2.5 MG/3 ML NPPB SCH ×2 (16:00→19:16)
[2019-04-26 16:54] LABS: RAPID INFLUENZA A Negative (Negative); RAPID INFLUENZA B Negative (Negative)
[2019-04-26] MEDS ORDERED: DILT120C11 PO (18:01)
[2019-04-26] MEDS ORDERED: LOSA50TA14 PO (18:01)
[2019-04-26 18:49] VITALS: BP 139/74
[2019-04-26] MEDS: BUDESONIDE 0.5 MG/2 ML INHA NPPB SCH (19:16)
[2019-04-26] MEDS: AMLODIPINE 2.5 MG TABLET PO SCH (19:54)
[2019-04-26] MEDS: DOXYCYCLINE 100MG TABLET PO SCH (19:54)
[2019-04-26] MEDS: FUROSEMIDE 20 MG TABLET PO SCH (19:54)
[2019-04-26] MEDS: LOSARTAN 25MG TABLET PO SCH (19:54)
[2019-04-26] MEDS ORDERED: POTASSIUM CHLORIDE 10 MEQ TABLET.ER PO SCH (21:00)
[2019-04-26] MEDS ORDERED: LOSARTAN 25MG TABLET PO SCH (21:00)
[2019-04-26] MEDS ORDERED: DILTIAZEM 120 MG TABLET PO ONE (21:00)
[2019-04-27 00:47] VITALS: BP 132/68
[2019-04-27] MEDS: ALBUTEROL SULFATE 2.5 MG/3 ML NPPB SCH ×4 (01:52→22:00)
[2019-04-27 04:40] LABS: BASOPHILS % (AUTO) 0 % (0-1); EOSINOPHILS # (AUTO) 0.02 x10^3/uL (0-0.4); EOSINOPHILS % (AUTO) 0 % (1-7); LYMPHOCYTES # (AUTO) 0.49 x10^3/uL (1-3.4); LYMPHOCYTES % (AUTO) 8 % (22-44); MD NO; MEAN CORPUSCULAR HEMOGLOBIN 26.4 pg (27.0-34.8); MEAN CORPUSCULAR HGB CONC 31.8 g/dL (32.4-35.8); MEAN PLATELET VOLUME 7.3 fL (7.4-10.4); MONOCYTES # (AUTO) 0.19 x10^3/uL (0.2-0.8); MONOCYTES % (AUTO) 3 % (2-9); NEUTROPHILS # (AUTO) 5.77 x10^3/uL (1.8-6.8); NEUTROPHILS % (AUTO) 89 % (42-75); PLATELET COUNT 278 x10^3/uL (130-400); RED BLOOD COUNT 3.77 x10^6/uL (3.82-5.3); RED CELL DISTRIBUTION WIDTH 14.9 % (9.6-15.2)
[2019-04-27 04:50] LABS: ANION GAP 6 mmol/L (5-15); CALCIUM 8.6 mg/dL (8.5-10.1); CHLORIDE 99 mmol/L (98-107); CREATININE 0.81 mg/dL (0.55-1.02)
[2019-04-27 06:44] VITALS: BP 126/76
[2019-04-27] MEDS: BUDESONIDE 0.5 MG/2 ML INHA NPPB SCH ×2 (08:45→21:00)
[2019-04-27] MEDS: FUROSEMIDE 20 MG TABLET PO SCH ×2 (08:52→20:08)
[2019-04-27] MEDS: POTASSIUM CHLORIDE 10 MEQ TABLET.ER PO SCH (08:52)
[2019-04-27] MEDS: APIXABAN 2.5 MG TABLET PO SCH ×2 (08:52→20:07)
[2019-04-27] MEDS: DILTIAZEM 120 MG CAP.ER.24H PO SCH (08:52)
[2019-04-27] MEDS: DOXYCYCLINE 100MG TABLET PO SCH ×2 (08:52→20:08)
[2019-04-27] MEDS: AMLODIPINE 2.5 MG TABLET PO SCH ×2 (08:52→20:08)
[2019-04-27] MEDS: LOSARTAN 25MG TABLET PO SCH ×2 (08:52→20:07)
[2019-04-27] MEDS ORDERED: DILTIAZEM CD 180 MG CAP.ER.24H PO SCH (09:00)
[2019-04-27] MEDS: FLUTICASONE INH SCH (09:00)
[2019-04-27] MEDS: VILANTEROL INH SCH (09:00)
[2019-04-27] MEDS: BENZONATATE 100 MG CAPSULE PO PRN ×2 (09:10→20:25)
[2019-04-27 12:03] VITALS: BP 121/70
[2019-04-27 19:24] VITALS: BP 134/75
[2019-04-27] MEDS ORDERED: ATORVASTATIN 10 MG TABLET PO SCH (21:00)
[2019-04-28 01:11] VITALS: BP 139/78
[2019-04-28] MEDS: ALBUTEROL SULFATE 2.5 MG/3 ML NPPB SCH ×3 (01:20→14:29)
[2019-04-28 05:33] LABS: ANION GAP 3 mmol/L (5-15); CALCIUM 8.6 mg/dL (8.5-10.1); CHLORIDE 101 mmol/L (98-107)
[2019-04-28 05:36] LABS: ALANINE AMINOTRANSFERASE 14 U/L (12-78); ALKALINE PHOSPHATASE 69 U/L (45-117); BILIRUBIN,TOTAL 0.3 mg/dL (0.2-1.0); CREATININE 0.86 mg/dL (0.55-1.02); TOTAL PROTEIN 7.1 g/dL (6.4-8.2)
[2019-04-28 06:47] VITALS: BP 133/67
[2019-04-28] MEDS: BUDESONIDE 0.5 MG/2 ML INHA NPPB SCH (08:19)
[2019-04-28] MEDS: FLUTICASONE INH SCH (09:00)
[2019-04-28] MEDS: VILANTEROL INH SCH (09:00)
[2019-04-28] MEDS: DOXYCYCLINE 100MG TABLET PO SCH (09:05)
[2019-04-28] MEDS: APIXABAN 2.5 MG TABLET PO SCH (09:05)
[2019-04-28] MEDS: LOSARTAN 25MG TABLET PO SCH (09:05)
[2019-04-28] MEDS: POTASSIUM CHLORIDE 10 MEQ TABLET.ER PO SCH (09:05)
[2019-04-28] MEDS: AMLODIPINE 2.5 MG TABLET PO SCH (09:06)
[2019-04-28] MEDS: DILTIAZEM 120 MG CAP.ER.24H PO SCH (09:06)
[2019-04-28] MEDS: FUROSEMIDE 20 MG TABLET PO SCH (09:06)
[2019-04-28] MEDS: BENZONATATE 100 MG CAPSULE PO PRN (09:10)
[2019-04-28 12:26] VITALS: BP 128/72
[2019-04-28] MEDS ORDERED: DOXY100T PO (13:53)
[2019-04-28] MEDS ORDERED: PRED20TA PO (13:53)
[2019-04-28] MEDS ORDERED: BENZ100C PO (13:53)
== END 2019-04-28 15:00 | disposition home or self-care (01) ==
LOC: MERGE 11:40 → ED 14:01 → EDIP 14:32 → OBSVTOIN 14:32 → INTOOBSV 14:32 → 4EST 15:29 → DCLOUNGE 04-28 14:51
PROVIDERS: ADMIT Family Medicine; ATTEND Family Medicine
DX: J44.1 Chronic obstructive pulmonary disease with (acute) exacerbation (principal); B33.8 Other specified viral diseases; J98.8 Other specified respiratory disorders; R54 Age-related physical debility; I48.91 Unspecified atrial fibrillation; I11.0 Hypertensive heart disease with heart failure; I50.9 Heart failure, unspecified; Z66 Do not resuscitate; Z79.899 Other long term (current) drug therapy; E78.5 Hyperlipidemia, unspecified; Z79.01 Long term (current) use of anticoagulants; Z95.0 Presence of cardiac pacemaker; I25.10 Atherosclerotic heart disease of native coronary artery without angina pectoris
CPT/HCPCS: 36415; 71045; 80048; 80053; 82040; 83605; 83735; 84145; 84484; 85025; 87400; 93005; 94640; 96374; 97162; 97165; 99285; G0378; J2930; J7512; J7613; J7626

== ENCOUNTER 2019-11-17 11:18 | Outpatient (CLI) | payer MEDICARE, MEDICAID ==
[~2019-11-17 11:18] MED LIST changes: +BENZ100C PO; +CLOT15CR26 TP; +DIGO125T85 PO; +DILT120C11 PO; +DILT240C55 PO; +DOXY100T PO; -ENAL20TA PO; +ENAL20TA9 PO; +ESTR42.58 TP; +NYST15CR TP; -NYST15CR33 TP; +SPIR25TA PO
[2019-11-17 15:55] LABS: ANION GAP 5 mmol/L (5-15); CALCIUM 8.9 mg/dL (8.5-10.1); CHLORIDE 101 mmol/L (98-107)
[2019-11-17 16:02] LABS: CREATININE 1.48 mg/dL (0.55-1.02)
== END 2019-11-17 23:59 | disposition home or self-care (01) ==
LOC: CFH 11:18
PROVIDERS: ATTEND Internal Medicine Cardiovascular Disease
DX: E78.5 Hyperlipidemia, unspecified (principal)
CPT/HCPCS: 36415; 80048; 83880

== ENCOUNTER 2019-12-14 21:47 | Observation (INO) | payer MEDICARE, MEDICAID ==
[~2019-12-14] VITALS: Ht 152.4 cm; Wt 117.0 kg
[2019-12-14] MEDS ORDERED: SODIUM CHLORIDE FLUSH 10ML SYR IVF ONE (22:00)
--- NOTE | 2019-12-14 22:00 | NUR ---
PT BIB [facility] FROM HOME FOR C/O DIZZINESS SINCE 0800 TODAY, AND CHEST PAIN STARTING AROUND 0. DAUGHTER CHECKED ON PT THIS EVENING AND CALLED EMS. PT HAS HX AFIB, PACER, CHF, HTN, HOME O2 3L. VS PER EMS: 130s/70s, 95% ON 3L, PACED RHYHM 80s WITH PVCs. PT ARRIVES TO ED A&OX4. ERP AT BS IMMEDIATELY AND HELICOPTER PILOT INSTRUCTOR AT BS FOR EKG.
--- NOTE | 2019-12-14 22:24 | NUR ---
PT TO CT VIA [facility].
[2019-12-14 22:40] LABS: BASOPHILS % (AUTO) 1 % (0-1); EOSINOPHILS % (AUTO) 16 % (1-7); LYMPHOCYTES % (AUTO) 19 % (22-44); MEAN CORPUSCULAR HEMOGLOBIN 23.7 pg (27.0-34.8); MEAN CORPUSCULAR HGB CONC 30.5 g/dL (32.4-35.8); MEAN PLATELET VOLUME 6.9 fL (7.4-10.4); MONOCYTES % (AUTO) 9 % (2-9); NEUTROPHILS % (AUTO) 55 % (42-75); PLATELET COUNT 292 x10^3/uL (130-400); RED BLOOD COUNT 4.02 x10^6/uL (3.82-5.3); RED CELL DISTRIBUTION WIDTH 17.2 % (9.6-15.2)
[2019-12-14 22:42] LABS: MD NO
[2019-12-14 22:51] LABS: ALANINE AMINOTRANSFERASE 12 U/L (12-78); ALBUMIN 3.5 g/dL (3.4-5.0); CALCIUM 8.7 mg/dL (8.5-10.1); CHLORIDE 102 mmol/L (98-107); CREATININE 1.09 mg/dL (0.55-1.02)
[2019-12-14 23:01] LABS: ALKALINE PHOSPHATASE 67 U/L (45-117); ANION GAP 2 mmol/L (5-15); BILIRUBIN,TOTAL 0.3 mg/dL (0.2-1.0); T4 (THYROXINE) 6.7 mcg/dL (4.8-13.9); TOTAL PROTEIN 7.3 g/dL (6.4-8.2); TROPONIN I < 0.015 ng/mL (0.000-0.045)
--- NOTE | 2019-12-14 23:30 | NUR ---
RV'WD RESULTS AND PLAN FOR ADMIT WITH PT. PT COMFORTABLE, DENIES NEEDS AT THIS TIME. STATES, "SOMETIMES THE LIGHT BENDS WHEN I LOOK AT THE WALL". STILL HAVING SOME DIZZINESS SYMPTOMS.
--- NOTE | 2019-12-14 23:50 | NUR ---
REPORTED TO GIOVANNI FRANCOIS.
[2019-12-15] MEDS ORDERED: IBUPROFEN 600 MG TABLET PO PRN (01:00)
[2019-12-15] MEDS ORDERED: NITROGLYCERIN 0.4 MG/SPRAY SL PRN (01:00)
[2019-12-15] MEDS ORDERED: BISACODYL 10 MG SUPP PR PRN (01:00)
[2019-12-15] MEDS ORDERED: ONDANSETRON 2MG/ML, 2ML IVPush PRN (01:00)
[2019-12-15] MEDS ORDERED: DOCUSATE 100 MG CAPSULE PO PRN (01:00)
[2019-12-15] MEDS ORDERED: ONDANSETRON ODT 4 MG PO PRN (01:00)
[2019-12-15] MEDS ORDERED: NITROGLYCERIN 0.4 MG BOTTLE (25 TABS) SL PRN (01:00)
[2019-12-15] MEDS ORDERED: ACETAMINOPHEN 325 MG TABLET PO PRN (01:00)
--- NOTE | 2019-12-15 01:00 | NUR ---
PT IS NOT SURE WHAT MEDICATIONS SHE TAKES AT HOME. HOSPITALIST AWARE.
--- NOTE | 2019-12-15 01:16 | NUR ---
PT RESTING IN ROOM. NO ACUTE DISTRESS NOTED. CALL LIGHT IN PLACE. WILL CONTINUE TO MONITOR.
[2019-12-15 02:30] VITALS: BP 130/63
[2019-12-15 06:14] LABS: BASOPHILS % (AUTO) 1 % (0-1); EOSINOPHILS % (AUTO) 14 % (1-7); LYMPHOCYTES % (AUTO) 18 % (22-44); MEAN CORPUSCULAR HEMOGLOBIN 23.7 pg (27.0-34.8); MEAN CORPUSCULAR HGB CONC 30.4 g/dL (32.4-35.8); MEAN PLATELET VOLUME 6.8 fL (7.4-10.4); MONOCYTES % (AUTO) 9 % (2-9); NEUTROPHILS % (AUTO) 58 % (42-75); PLATELET COUNT 271 x10^3/uL (130-400); RED BLOOD COUNT 3.88 x10^6/uL (3.82-5.3)
[2019-12-15 06:17] LABS: MD NO
[2019-12-15 06:19] LABS: ANION GAP 1 mmol/L (5-15); CALCIUM 8.5 mg/dL (8.5-10.1); CREATININE 0.94 mg/dL (0.55-1.02)
[2019-12-15 06:23] LABS: TROPONIN I < 0.015 ng/mL (0.000-0.045)
[2019-12-15 06:28] LABS: CHLORIDE 103 mmol/L (98-107)
[2019-12-15 07:19] VITALS: BP 129/65
[2019-12-15] MEDS: POTASSIUM CHLORIDE 10 MEQ TABLET.ER PO SCH (08:43)
[2019-12-15] MEDS: FUROSEMIDE 20 MG TABLET PO SCH ×2 (08:43→20:09)
[2019-12-15] MEDS: LOSARTAN 50MG TABLET PO SCH ×2 (08:44→20:09)
[2019-12-15] MEDS: DILTIAZEM 240 MG CAP.ER.24H PO SCH (08:44)
[2019-12-15] MEDS: LOVASTATIN 20 MG TABLET PO SCH (08:44)
[2019-12-15] MEDS: SPIRONOLACTONE 25 MG TABLET PO SCH (08:44)
[2019-12-15] MEDS: APIXABAN 5 MG TABLET PO SCH ×2 (08:44→20:09)
[2019-12-15] MEDS: FLUTICASONE/VILANTEROL 100-25MCG/INH INH SCH (09:00)
[2019-12-15] MEDS ORDERED: DIGOXIN 0.125 MG TABLET PO SCH (09:00)
[2019-12-15 11:26] LABS: TROPONIN I < 0.015 ng/mL (0.000-0.045)
[2019-12-15] MEDS ORDERED: FUROSEMIDE 20 MG TABLET PO ONE (12:30)
[2019-12-15 12:52] VITALS: BP 121/74
[2019-12-15 19:58] VITALS: BP 129/65
[2019-12-16 01:17] VITALS: BP 121/69
[2019-12-16 05:34] LABS: ANION GAP 2 mmol/L (5-15); CALCIUM 8.9 mg/dL (8.5-10.1); CHLORIDE 101 mmol/L (98-107); CREATININE 1.04 mg/dL (0.55-1.02)
[2019-12-16 07:22] VITALS: BP 131/66
[2019-12-16 08:32] LABS: ABSOLUTE RETICS # 0.065 x10^6/uL (0.5-2.5); BASOPHILS % (AUTO) 1 % (0-1); EOSINOPHILS % (AUTO) 13 % (1-7); LYMPHOCYTES % (AUTO) 22 % (22-44); MEAN CORPUSCULAR HEMOGLOBIN 23.7 pg (27.0-34.8); MEAN CORPUSCULAR HGB CONC 30.4 g/dL (32.4-35.8); MEAN PLATELET VOLUME 7.1 fL (7.4-10.4); MONOCYTES % (AUTO) 10 % (2-9); NEUTROPHILS % (AUTO) 55 % (42-75); PLATELET COUNT 274 x10^3/uL (130-400); RED BLOOD COUNT 3.82 x10^6/uL (3.82-5.3); RETICULOCYTE COUNT % 1.71 % (0.5-1.5)
[2019-12-16] MEDS: FLUTICASONE/VILANTEROL 100-25MCG/INH INH SCH (09:00)
[2019-12-16 09:14] LABS: MD SCAN
[2019-12-16] MEDS: LOVASTATIN 20 MG TABLET PO SCH (10:01)
[2019-12-16] MEDS: DILTIAZEM 240 MG CAP.ER.24H PO SCH (10:01)
[2019-12-16] MEDS: APIXABAN 5 MG TABLET PO SCH (10:02)
[2019-12-16] MEDS: FUROSEMIDE 20 MG TABLET PO SCH (10:03)
[2019-12-16] MEDS: POTASSIUM CHLORIDE 10 MEQ TABLET.ER PO SCH (10:03)
[2019-12-16] MEDS: LOSARTAN 50MG TABLET PO SCH (10:03)
[2019-12-16] MEDS: SPIRONOLACTONE 25 MG TABLET PO SCH (10:06)
[2019-12-16 13:04] VITALS: BP 155/69
[2019-12-16] MEDS ORDERED: FLU VACC QS2020-21(6MOS UP)/PF 60MCG/0.5 ML SYR IM-VACC ONE ×2 (16:30→18:00)
== END 2019-12-16 21:05 | disposition home or self-care (01) ==
LOC: ED 23:35 → EDIP 12-15 00:56 → INTOOBSV 12-15 00:56 → 5SO 12-15 02:12
PROVIDERS: ADMIT Family Medicine; ATTEND Family Medicine
DX: R07.89 Other chest pain (principal); I11.0 Hypertensive heart disease with heart failure; I50.9 Heart failure, unspecified; R42 Dizziness and giddiness; J44.9 Chronic obstructive pulmonary disease, unspecified; I48.92 Unspecified atrial flutter; I48.91 Unspecified atrial fibrillation; D64.9 Anemia, unspecified; E66.01 Morbid (severe) obesity due to excess calories; G47.33 Obstructive sleep apnea (adult) (pediatric); E78.5 Hyperlipidemia, unspecified; E86.0 Dehydration; Z85.828 Personal history of other malignant neoplasm of skin; Z95.0 Presence of cardiac pacemaker; Z79.899 Other long term (current) drug therapy; Z79.01 Long term (current) use of anticoagulants; Z23 Encounter for immunization
CPT/HCPCS: 36415; 70450; 71045; 80048; 80053; 80162; 82728; 83540; 83550; 83690; 83880; 84436; 84443; 84484; 85025; 85045; 90686; 93005; 94640; 97162; 97166; 99285; G0008; G0378

== ENCOUNTER 2020-04-05 15:16 | Emergency (ER) | payer MEDICARE, MEDICAID ==
[~2020-04-05] VITALS: Ht 152.4 cm; Wt 105.0 kg
[~2020-04-05 15:16] MED LIST changes: -ASPI-650 PO; +ASPI325T20 PO; +CEFD300C37 PO; +GUAI5SYR PO; +SERT-331 PO; -SERT25TA3 PO
--- NOTE | 2020-04-05 16:36 | NUR ---
PT IN NAD. VSS. FALL PRECAUTIONS IN PLACED, AND CALL LIGHT WITHIN REACH.
[2020-04-05] MEDS ORDERED: SODIUM CHLORIDE FLUSH 10ML SYR IVF ONE (17:00)
[2020-04-05] MEDS ORDERED: SODIUM CHLORIDE 0.9% 1,000ML IVBOLUS ONE (17:00)
--- NOTE | 2020-04-05 17:10 | NUR ---
TASK RN: PT RESTING, VSS. IVF. GIVEN SIP OF WATER. NO ISSUES W SWALLOWING
[2020-04-05 17:44] LABS: BASOPHILS % (AUTO) 1 % (0-1); EOSINOPHILS % (AUTO) 4 % (1-7); LYMPHOCYTES % (AUTO) 15 % (22-44); MEAN CORPUSCULAR HEMOGLOBIN 22.6 pg (27.0-34.8); MEAN CORPUSCULAR HGB CONC 30.2 g/dL (32.4-35.8); MONOCYTES % (AUTO) 10 % (2-9); NEUTROPHILS % (AUTO) 70 % (42-75); PLATELET COUNT 250 x10^3/uL (130-400); RED BLOOD COUNT 3.38 x10^6/uL (3.82-5.3); RED CELL DISTRIBUTION WIDTH 19.8 % (9.6-15.2)
[2020-04-05 17:50] LABS: MD NO
[2020-04-05 17:51] LABS: ALANINE AMINOTRANSFERASE 11 U/L (12-78); ANION GAP 3 mmol/L (5-15); BILIRUBIN, DIRECT 0.1 mg/dL (0.1-0.2); CALCIUM 8.3 mg/dL (8.5-10.1); CHLORIDE 97 mmol/L (98-107); CREATININE 0.79 mg/dL (0.55-1.02)
[2020-04-05 17:53] LABS: ALKALINE PHOSPHATASE 55 U/L (45-117); BILIRUBIN,TOTAL 0.5 mg/dL (0.2-1.0); TOTAL PROTEIN 6.1 g/dL (6.4-8.2)
[2020-04-05 18:14] LABS: BILIRUBIN,INDIRECT 0.4 mg/dL (0.0-2.0)
--- NOTE | 2020-04-05 18:25 | NUR ---
task RN: pt resting in position of comfort with lights dimmed and eyes closed. no apparent resp. distress at this time. no family at bedside. IV infusing
--- NOTE | 2020-04-05 19:00 | NUR ---
PT RESTING ON JAX, IN NAD. PT STATES SHE DOES NOT HAVE TO HAVE A BM AT THIS TIME.
[2020-04-05 19:41] VITALS: BP 141/48
--- NOTE | 2020-04-05 20:00 | NUR ---
SPOKE WITH DANIAL, PT'S DAUGHTER FOR UPDATE AND POC, PT IS UP FOR DISCHARGE AND REQUESTING FOR DANIAL TO MEET HER AT HOME TO LET HER IN. TAXI VOUCHER PROVIDED TO PT, AWAITING TAXI VAN FOR WHEELCHAIR TRANSPORT. PER DANIAL SHE WILL MEET PRACTICING DERMATOLOGIST AT PT'S HOME TO ASSIST PT INTO HER HOME.
== END 2020-04-05 20:04 | disposition home or self-care (01) ==
LOC: ED 18:10
DX: J96.11 Chronic respiratory failure with hypoxia (principal); R19.7 Diarrhea, unspecified; D50.9 Iron deficiency anemia, unspecified
CPT/HCPCS: 36415; 80048; 80076; 82040; 83690; 85025; 93971; 96360; 99284; J7030

== ENCOUNTER 2020-04-14 10:23 | Emergency (ER) | payer MEDICARE, MEDICAID ==
[~2020-04-14] VITALS: Ht 152.4 cm; Wt 100.0 kg
--- NOTE | 2020-04-14 10:30 | NUR ---
PROVIDER AT BEDSIDE FOR ASSESSMENT AND TO DISCUSS PLAN OF CARE
--- NOTE | 2020-04-14 10:31 | NUR ---
PT BIB EMS C/O RIGHT FOOT/LEG PAIN "IT WOKE ME UP IN THE MIDDLE OF THE NIGHT. WHEN I WOKE UP I NOTICED A BRUISE TO MY RIGHT FOOT".
--- NOTE | 2020-04-14 11:30 | NUR ---
LATE ENTRY: MONITOR CHECK. PER CASSY FRANCOIS PT OXYGEN SATURATION 68% ON 3L FOLLOWING TRANSPORTATION BACK FROM [facility]. PT STATES 3L IS HER BASELINE OXYGEN AMOUNT. PT STATES SHE GETS SOB AND HER "NUMBERS DROP WHEN SHE WALKS TO THE BATHROOM". NASAL CANNULA OXYGEN INCREASED TO 5L. PT OXYGEN SATURATION CONTINUES IN MID 80'S. SIMPLE MASK PLACED AND OXYGEN INCREASED TO 6L. PVC'S NOTED TO DATA CONVERSION ANALYST. PROVIDER NOTIFIED.
--- NOTE | 2020-04-14 12:21 | NUR ---
RADIOLOGY CONTROLLED CONTACTED REGARDING XRAY RESULTS. PER GAYATRI, XRAYS HAVE BEEN READ BUT IMAGES AND REPORTS ARE "NOT CROSSING OVER". GAYATRI STATES IT HAS BEEN CONTACTED.
--- NOTE | 2020-04-14 12:34 | NUR ---
PT RESTING ON GURNEY. PT ON 5L OXYGEN VIA SIMPLE MASK. LEGS ELEVATED AND ICE PLACED TO RIGHT LEG PER PROVIDER REQUEST. CALL LIGHT W/IN REACH
--- NOTE | 2020-04-14 13:07 | NUR ---
RECEIVED CALL FROM PT.'S SISTER LORNA. PER PT, OKAY TO SHARE INFO W/SISTER. PT SISTER UPDATED ON PLAN OF CARE. QUESTIONS ANSWERED
--- NOTE | 2020-04-14 13:16 | NUR ---
PREFERRED PHARMACY CONFIRMED W/PT.
[2020-04-14] MEDS ORDERED: HYDROcodone/APAP 5/325 TABLET ONE (13:55)
[2020-04-14] MEDS ORDERED: HYDROcodone/APAP 5/325 TABLET PO ONE (14:00)
--- NOTE | 2020-04-14 14:14 | NUR ---
PT RESTING ON GURNEY. RIGHT FOOT REPOSITIONED PER PT. REQUEST. WATER PROVIDED. ORDERED MEDICATIONS ADMINISTERED. NAD. CALL LIGHT W/IN REACH.
--- NOTE | 2020-04-14 14:50 | NUR ---
BREAK RN: PATIENT LAYING IN GURNEY, RAQUEL, VSS, SIDE RAILS UP X2, CALL LIGHT WITHIN REACH.
--- NOTE | 2020-04-14 15:32 | NUR ---
[facility] CONTACED FOR WHEELCHAIR ACCESSIBLE VAN. PER [facility], THEY ARE 30-45MIN OUT. SOUND TECHNICIAN MADE AWARE
--- NOTE | 2020-04-14 15:35 | NUR ---
PTS DAUGHTER CONTACTED TO REPORT PT ETA PER PT REQUEST. PER PT DAUGHTER, SHE WILL BE THERE TO HELP TAKE PT INTO HOUSE
[2020-04-14 15:41] VITALS: BP 139/46
--- NOTE | 2020-04-14 15:43 | NUR ---
PT RESTING ON GURNEY. AWAITING WHEELCHAIR BOUND CAB. ETA 30 MIN. CALL LIGHT W/IN REACH
--- NOTE | 2020-04-14 16:04 | NUR ---
PT TO DISCHARGE IN WHEELCHAIR. [employer] MARKETING MANAGER MADE AWARE THAT A WHEELCHAIR ACCESSIBLE CAB IS ENROUTE TO TRANSPORT PT HOME. PT ENCOURAGED TO FOLLOWUP DISCUSSED. PT EDUCATED TO RETURN TO THE ED W/NEW OR WORSENING SYMPTOMS.
== END 2020-04-14 16:07 | disposition home or self-care (01) ==
LOC: ED 11:28
DX: S90.31XA Contusion of right foot, initial encounter (principal); M19.071 Primary osteoarthritis, right ankle and foot; M17.11 Unilateral primary osteoarthritis, right knee; J44.9 Chronic obstructive pulmonary disease, unspecified; I48.91 Unspecified atrial fibrillation; I11.0 Hypertensive heart disease with heart failure; I50.9 Heart failure, unspecified; E78.5 Hyperlipidemia, unspecified; Z95.0 Presence of cardiac pacemaker; Z90.49 Acquired absence of other specified parts of digestive tract; X58.XXXA Exposure to other specified factors, initial encounter; Y93.89 Activity, other specified; Y92.89 Other specified places as the place of occurrence of the external cause; Y99.8 Other external cause status
CPT/HCPCS: 99285

== ENCOUNTER 2020-05-14 19:38 | Inpatient (IN) | payer MEDICARE, MEDICAID ==
[~2020-05-14] VITALS: Ht 152.4 cm; Wt 103.5 kg
--- NOTE | 2020-05-14 19:48 | NUR ---
MARIANA YARBROUGH FROM HOME FOR BLOOD ON TOILET PAPER AFTER BM THIS SANTOS. PT ON ELIQUIS. PT CONNECTED TO MONITORING. CALL LIGHT IN REACH. MD AT BEDSIDE FOR ASSESSEMENT. PT HAS BRIGHT RED BLOOD UPON RECTAL EXAM BY .
--- NOTE | 2020-05-14 20:07 | NUR ---
PIV PLACED, LABS DRAWN AND COLLECTED BY INTERNET MARKETING INTERN. PT POSITIONED FOR COMFORT. WARM BLANKETS PROVIDED.
[2020-05-14 20:12] LABS: BASOPHILS % (AUTO) 1 % (0-1); EOSINOPHILS % (AUTO) 3 % (1-7); LYMPHOCYTES % (AUTO) 24 % (22-44); MEAN CORPUSCULAR HEMOGLOBIN 21.3 pg (27.0-34.8); MEAN PLATELET VOLUME 6.9 fL (7.4-10.4); MONOCYTES % (AUTO) 12 % (2-9); NEUTROPHILS % (AUTO) 60 % (42-75); PLATELET COUNT 193 x10^3/uL (130-400); RED BLOOD COUNT 3.18 x10^6/uL (3.82-5.3); RED CELL DISTRIBUTION WIDTH 18.7 % (9.6-15.2)
[2020-05-14 20:14] LABS: MD NO; MEAN CORPUSCULAR HGB CONC 29.3 g/dL (32.4-35.8)
[2020-05-14 20:21] LABS: ALANINE AMINOTRANSFERASE 11 U/L (12-78); ALBUMIN 3.2 g/dL (3.4-5.0); ANION GAP 3 mmol/L (5-15); CALCIUM 8.2 mg/dL (8.5-10.1); CHLORIDE 96 mmol/L (98-107); CREATININE 0.77 mg/dL (0.55-1.02)
[2020-05-14 20:22] LABS: INTERNATIONAL NORMALIZED RATIO 1.11 (0.93-1.1); PROTHROMBIN TIME 11.9 Seconds (9.6-11.5)
[2020-05-14 20:24] LABS: ALKALINE PHOSPHATASE 52 U/L (45-117); BILIRUBIN,TOTAL 0.4 mg/dL (0.2-1.0); TOTAL PROTEIN 6.4 g/dL (6.4-8.2)
[2020-05-14] MEDS ORDERED: OMNIPAQUE 350 MG/ML, 100ML BOTTLE ONE (20:30)
--- NOTE | 2020-05-14 20:52 | NUR ---
PT SLEEPING COMFORTABLY ON GURNEY. RESP EVEN AND UNLABORED. CALL LIGHT IN REACH
--- NOTE | 2020-05-14 20:58 | NUR ---
PT GOING TO CT
--- NOTE | 2020-05-14 21:17 | NUR ---
PT BACK FROM CT. BLOOD REQUESTED.
[2020-05-14 21:29] VITALS: BP 111/42
--- NOTE | 2020-05-14 21:30 | NUR ---
BLOOD CONSENT SIGNED. BLOOD VERIFIED WITH SECOND RN. PT AWARE OF S/SX OF REACTION.
[2020-05-14 21:45] VITALS: BP 116/47
--- NOTE | 2020-05-14 21:45 | NUR ---
NO REACTION NOTED AFTER INITIAL 15 MIN OF INFUSION. PT RESTING COMFORTABLY ON GURNEY. NADN.
[2020-05-14 22:00] VITALS: BP 115/49
[2020-05-14] MEDS ORDERED: ONDANSETRON 2MG/ML, 2ML ONE (22:05)
--- NOTE | 2020-05-14 22:19 | NUR ---
REPORT GIVEN TO STORM FRANCOIS. BLOOD STILL INFUSING.
[2020-05-14] MEDS ORDERED: ONDANSETRON 2MG/ML, 2ML IVPush ONE (22:30)
--- NOTE | 2020-05-14 22:35 | NUR ---
HOSPITALIST AT BEDSIDE.
[2020-05-14 22:52] VITALS: BP 124/52
--- NOTE | 2020-05-14 22:53 | NUR ---
BLOOD INFUSION COMPLETE. 15 MIN VITALS DONE. NO ADVERSE REACTIONS NOTED.
[2020-05-14] MEDS ORDERED: ONDANSETRON ODT 4 MG PO PRN (23:00)
[2020-05-14] MEDS ORDERED: BISACODYL 10 MG SUPP PR PRN (23:00)
[2020-05-14] MEDS ORDERED: MELATONIN 5 MG TABLET PO PRN (23:00)
[2020-05-14] MEDS ORDERED: LABETALOL 5MG/ML, 20ML IVPush PRN (23:00)
[2020-05-14] MEDS ORDERED: POLYETHYLENE GLYCOL 17 GM PACKET PO PRN (23:00)
[2020-05-14] MEDS ORDERED: DOCUSATE 100 MG CAPSULE PO PRN (23:00)
[2020-05-14 23:11] VITALS: BP 118/64
[2020-05-14] MEDS ORDERED: PANTOPRAZOLE 80 MG in SODIUM CHLORIDE 0.9% 50 ML IVPB ONE (23:30)
[2020-05-14 23:36] VITALS: BP 116/46
[2020-05-15] MEDS: ACETAMINOPHEN 325 MG TABLET PO PRN ×4 (00:17→21:32)
[2020-05-15 00:55] VITALS: BP 116/48
[2020-05-15 01:59] VITALS: BP 115/68
[2020-05-15] MEDS: PANTOPRAZOLE 80 MG in SODIUM CHLORIDE 0.9% 100 ML IV SCH ×3 (02:46→23:01)
[2020-05-15 06:54] VITALS: BP 132/50
[2020-05-15] MEDS ORDERED: POTASSIUM CHLORIDE 20 MEQ in SODIUM CHLORIDE 0.9% 250 ML IV ONE (07:00)
[2020-05-15] MEDS ORDERED: ALBUTEROL-IPRATROPIUM MDI INH INH SCH (07:00)
[2020-05-15 07:05] LABS: ALANINE AMINOTRANSFERASE 10 U/L (12-78); ALBUMIN 3.3 g/dL (3.4-5.0); ANION GAP 2 mmol/L (5-15); CALCIUM 8.2 mg/dL (8.5-10.1); CHLORIDE 97 mmol/L (98-107)
[2020-05-15 07:07] LABS: ALKALINE PHOSPHATASE 57 U/L (45-117); BILIRUBIN,TOTAL 0.8 mg/dL (0.2-1.0); TOTAL PROTEIN 6.7 g/dL (6.4-8.2)
[2020-05-15] MEDS: FLUTICASONE/VILANTEROL 100-25MCG/INH INH SCH (07:35)
[2020-05-15] MEDS: POTASSIUM CHLORIDE 10 MEQ TABLET.ER PO SCH (07:46)
[2020-05-15] MEDS: DILTIAZEM 240 MG CAP.ER.24H PO SCH (07:46)
[2020-05-15] MEDS: HYDROcodone/APAP 5/325 TABLET PO PRN ×2 (07:46→16:20)
[2020-05-15] MEDS: LOVASTATIN 20 MG TABLET PO SCH (07:46)
[2020-05-15] MEDS: FUROSEMIDE 20 MG TABLET PO SCH ×2 (07:46→21:32)
[2020-05-15] MEDS: CLOTRIMAZOLE CRM 1%, 15GM TP SCH ×2 (07:47→21:37)
[2020-05-15] MEDS: SODIUM CHLORIDE 0.9% 1,000 ML IV SCH (11:40)
[2020-05-15 12:27] VITALS: BP 119/72
[2020-05-15] MEDS: ONDANSETRON 2MG/ML, 2ML IVPush PRN (16:20)
[2020-05-15 19:21] VITALS: BP 118/76
[2020-05-16] MEDS: SODIUM CHLORIDE 0.9% 1,000 ML IV SCH ×2 (00:34→13:10)
[2020-05-16 00:43] VITALS: BP 110/66
[2020-05-16] MEDS: HYDROcodone/APAP 5/325 TABLET PO PRN ×2 (04:30→11:05)
[2020-05-16 05:44] LABS: BASOPHILS % (AUTO) 0 % (0-1); EOSINOPHILS % (AUTO) 1 % (1-7); LYMPHOCYTES % (AUTO) 14 % (22-44); MEAN CORPUSCULAR HEMOGLOBIN 21.7 pg (27.0-34.8); MEAN PLATELET VOLUME 7.4 fL (7.4-10.4); MONOCYTES % (AUTO) 9 % (2-9); NEUTROPHILS % (AUTO) 76 % (42-75); PLATELET COUNT 170 x10^3/uL (130-400); RED BLOOD COUNT 3.81 x10^6/uL (3.82-5.3); RED CELL DISTRIBUTION WIDTH 18.8 % (9.6-15.2)
[2020-05-16 05:46] LABS: MD NO; MEAN CORPUSCULAR HGB CONC 28.9 g/dL (32.4-35.8)
[2020-05-16 05:53] LABS: ANION GAP 2 mmol/L (5-15); CALCIUM 8.2 mg/dL (8.5-10.1); CHLORIDE 99 mmol/L (98-107); CREATININE 0.73 mg/dL (0.55-1.02)
[2020-05-16 07:02] VITALS: BP 112/65
[2020-05-16] MEDS ORDERED: DIGOXIN 0.125 MG TABLET PO SCH (09:00)
[2020-05-16] MEDS: ONDANSETRON 2MG/ML, 2ML IVPush PRN (09:08)
[2020-05-16] MEDS: DILTIAZEM 240 MG CAP.ER.24H PO SCH (09:09)
[2020-05-16] MEDS: LOVASTATIN 20 MG TABLET PO SCH (09:09)
[2020-05-16] MEDS: POTASSIUM CHLORIDE 10 MEQ TABLET.ER PO SCH (09:09)
[2020-05-16] MEDS: FUROSEMIDE 20 MG TABLET PO SCH (09:09)
[2020-05-16] MEDS: FLUTICASONE/VILANTEROL 100-25MCG/INH INH SCH (11:00)
[2020-05-16] MEDS: PANTOPRAZOLE 80 MG in SODIUM CHLORIDE 0.9% 100 ML IV SCH ×2 (11:05→17:54)
[2020-05-16 12:19] VITALS: BP 123/79
[2020-05-16] MEDS: CLOTRIMAZOLE CRM 1%, 15GM TP SCH (12:47)
[2020-05-16] MEDS ORDERED: OMEP20TA9 PO (13:46)
[2020-05-16] MEDS ORDERED: ALBUTEROL/IPRATROPIUM 2.5MG/0.5MG, 3 ML NEB ONE (15:00)
== END 2020-05-16 18:25 | disposition home or self-care (01) | DRG 378 ==
LOC: ED 20:42 → EDIP 22:05 → 3N 23:14 → 4EST 05-15 01:45
PROVIDERS: ADMIT Family Medicine; ATTEND Family Medicine
PROC: 30233N1 Transfusion of Nonautologous Red Blood Cells into Peripheral Vein, Percutaneous Approach (ICD-10-PCS; principal; 2020-05-14)
PROC: 5A0935A Assistance with Respiratory Ventilation, Less than 24 Consecutive Hours, High Flow/Velocity Cannula (ICD-10-PCS; 2020-05-15)
DX: K92.2 Gastrointestinal hemorrhage, unspecified (principal); E46 Unspecified protein-calorie malnutrition; J96.11 Chronic respiratory failure with hypoxia; I50.32 Chronic diastolic (congestive) heart failure; Z68.41 Body mass index [BMI] 40.0-44.9, adult; D62 Acute posthemorrhagic anemia; E87.6 Hypokalemia; I11.0 Hypertensive heart disease with heart failure; I48.91 Unspecified atrial fibrillation; J44.9 Chronic obstructive pulmonary disease, unspecified; Z66 Do not resuscitate; M79.671 Pain in right foot; T50.905A Adverse effect of unspecified drugs, medicaments and biological substances, initial encounter; Y92.89 Other specified places as the place of occurrence of the external cause; Z79.01 Long term (current) use of anticoagulants; Z80.1 Family history of malignant neoplasm of trachea, bronchus and lung; Z85.828 Personal history of other malignant neoplasm of skin; Z95.0 Presence of cardiac pacemaker; Z90.49 Acquired absence of other specified parts of digestive tract; Z88.8 Allergy status to other drugs, medicaments and biological substances
CPT/HCPCS: 36415; 36430; 74177; 80048; 80053; 80162; 85014; 85018; 85025; 85610; 85730; 86850; 86900; 86923; 94640; 96374; 96375; G0378; J2405; J3480; Q9967; C9113; J7030; J7050; P9016

== ENCOUNTER 2020-08-04 11:22 | Emergency (ER) | payer MEDICARE, MEDICAID ==
[~2020-08-04] VITALS: Ht 152.4 cm; Wt 55.0 kg
[~2020-08-04 11:22] MED LIST changes: +OMEP20TA9 PO
[2020-08-04] MEDS ORDERED: SODIUM CHLORIDE FLUSH 10ML SYR IVF ONE (11:30)
--- NOTE | 2020-08-04 11:45 | NUR ---
SEE TRIAGE. PT PLACED ON ALL ROOM MONITORING. DNR, DNI, NO IVF COPY PLACED ON CHART. BP 80/44, ERP NOTIFIED. PT RESTING COMFORTABLY AT THIS TIME. LAB IN TO DRAW. PT RECENTLY ON HOSPICE, PT STATES SHE THINKS AMPLIFIED HOSPICE.
[2020-08-04 11:54] LABS: MEAN CORPUSCULAR HEMOGLOBIN 22.8 pg (27.0-34.8); MEAN PLATELET VOLUME 7.4 fL (7.4-10.4); PLATELET COUNT 192 x10^3/uL (130-400); RED BLOOD COUNT 3.54 x10^6/uL (3.82-5.3); RED CELL DISTRIBUTION WIDTH 20.6 % (9.6-15.2)
[2020-08-04 12:02] LABS: ALBUMIN 3.3 g/dL (3.4-5.0); ANION GAP 8 mmol/L (5-15); CALCIUM 8.2 mg/dL (8.5-10.1); CHLORIDE 98 mmol/L (98-107)
--- NOTE | 2020-08-04 12:07 | NUR ---
CALL FROM SON, LISA RUSHING [phone]
[2020-08-04 12:08] LABS: ALANINE AMINOTRANSFERASE 24 U/L (12-78); ALKALINE PHOSPHATASE 77 U/L (45-117); BILIRUBIN,TOTAL 0.6 mg/dL (0.2-1.0); CREATININE 2.25 mg/dL (0.55-1.02); TOTAL PROTEIN 7.3 g/dL (6.4-8.2); TROPONIN I 0.027 ng/mL (0.000-0.045)
[2020-08-04 12:15] LABS: MEAN CORPUSCULAR HGB CONC 29.8 g/dL (32.4-35.8)
[2020-08-04 12:23] LABS: ANISOCYTOSIS 1+; LYMPH#(MANUAL) 1.81 x10^3/uL (1-3.4); LYMPHS% (MANUAL) 16 % (22-44); MICROCYTOSIS 1+; MONOS#(MANUAL) 1.36 x10^3/uL (0.3-2.7); MONOS% (MANUAL) 12 % (2-9); POLYCHROMASIA 1+; SEG#(MANUAL) 8.14 x10^3/uL (1.8-6.8); SEGS% (MANUAL) 72 % (42-75)
[2020-08-04 12:24] LABS: <PLATELET ESTIMATE> ADEQUATE; <PLT MORPHOLOGY> NORMAL PLT MORPH; HYPOCHROMIA 2+; OVALOCYTES 1+
[2020-08-04 12:35] VITALS: BP 93/43
--- NOTE | 2020-08-04 12:35 | NUR ---
DAUGHTER DANIAL [phone]
--- NOTE | 2020-08-04 12:37 | NUR ---
CALL TO [facility]TR TO REQUEST INFORMATION REGARDING HOSPICE PROVIDER. NO AMPLIFY HOSPICE FOUND IN [place] ONLINE SEARCH. NO ANSWER AT HOME, NO VM SET UP. SON ASKED WITH PREVIOUS CALL AND SON DOES NOT KNOW. ERP NOTIFIED
--- NOTE | 2020-08-04 13:01 | NUR ---
DISCHARGE PAPERWORK PROVIDED TO PT. PT ABLE TO PROVIDE ADDRESS, STATES SHE CAN SIT IN WC AND ABLE TO GET INTO HOUSE. THROUGHPUT NOTIFIED OF PT'S NEED TO BE TRANSPORTED HOME ON OXYGEN. AWAITING [facility] TRANSPORT.
--- NOTE | 2020-08-04 13:08 | NUR ---
CALL FROM [facility] HOSPICE NURSE, KIM. CORDERO UPDATED ON PT CONDITION AND DC HOME.
--- NOTE | 2020-08-04 13:47 | NUR ---
CALL FROM DTR. DTR UPDATED ON DC, POC.
== END 2020-08-04 13:48 | disposition home or self-care (01) ==
LOC: ED 13:27
DX: R06.00 Dyspnea, unspecified (principal); N28.9 Disorder of kidney and ureter, unspecified; R00.0 Tachycardia, unspecified; I11.0 Hypertensive heart disease with heart failure; I50.9 Heart failure, unspecified; E11.9 Type 2 diabetes mellitus without complications; J44.9 Chronic obstructive pulmonary disease, unspecified; I48.91 Unspecified atrial fibrillation; E78.5 Hyperlipidemia, unspecified
CPT/HCPCS: 36415; 71045; 80053; 83880; 84443; 84484; 85025; 85379; 93005; 99285

== ENCOUNTER 2020-08-05 08:45 | Inpatient (IN) | payer MEDICARE, MEDICAID ==
[~2020-08-05] VITALS: Ht 152.4 cm; Wt 92.7 kg
--- NOTE | 2020-08-05 08:54 | NUR ---
THIS IS A 85 YEAR OLD FEMALE WHO WAS BIB AMBULANCE, DUE TO SATS 60% ON RA. PT IS ON HOSPICE WITH [facility] AND WAS IN THE ED YESTERDAY 08/04/2020. PT HAS A HX OF COPD, CHF, AFIB, SLEEP APNEA, PANCREATITIS, PACEMAKER, SKIN CA. PT PLACED ON LICENSING SERVICES CLERK IN A FIB AT 127-150. CONTINOUS SP02 AT 6LNC AT 91%, AND CYCLE VS.
--- NOTE | 2020-08-05 08:57 | NUR ---
REPORT TO SAMY FRANCOIS, PLAN OF CARE DISCUSSED
--- NOTE | 2020-08-05 08:58 | NUR ---
RECEIVED REPORT FROM PRISCILA PEARSON.
[2020-08-05] MEDS ORDERED: SODIUM CHLORIDE FLUSH 10ML SYR IVF ONE (09:00)
--- NOTE | 2020-08-05 09:05 | NUR ---
PT NOTED TO HAVE 8 BEATS OF VTACH FOLLOWED BY 4 BEATS OF VTACH, REMAINS TACHY IN THE 130'S, AND SBP IN THE 70'S. PRISCILA PEARSON TO KEEP PT IN T4 AND ASSUME CARE OF PT. Addendum: 08/05/20 at [address] ROSAS NOTIFIED AND AWARE OF PT VITAL SIGNS AND SBP.
--- NOTE | 2020-08-05 09:10 | NUR ---
CALLED [facility] AT HOSPICE [phone], PER [facility], PT HAS A POLST, (DID NOT COME TO THE ED) WILL FAX TO THE ED. CALLED DAUGHTER AT [phone] DANIAL, DR. ROSAS TO SPEAK TO HER REGARDING CARE
--- NOTE | 2020-08-05 09:17 | NUR ---
NOTIFIED MD OR BP, FAMILY TO COME IN A DISCUSSED PLAN OF CARE
--- NOTE | 2020-08-05 09:30 | NUR ---
REPOSITIOND FOR COMFORT, LAB AND X RAY COMPLETED, BED RAILS UP, PT REFUSED WARM BLANKET
[2020-08-05 09:37] LABS: MEAN CORPUSCULAR HEMOGLOBIN 22.8 pg (27.0-34.8); MEAN PLATELET VOLUME 7.4 fL (7.4-10.4); PLATELET COUNT 201 x10^3/uL (130-400); RED BLOOD COUNT 3.56 x10^6/uL (3.82-5.3)
[2020-08-05] MEDS ORDERED: DILTIAZEM 5 MG/ML, 5ML ONE (09:39)
[2020-08-05 09:48] LABS: ALBUMIN 3.3 g/dL (3.4-5.0); ANION GAP 10 mmol/L (5-15); CALCIUM 8.2 mg/dL (8.5-10.1); CHLORIDE 97 mmol/L (98-107); CREATININE 3.07 mg/dL (0.55-1.02)
--- NOTE | 2020-08-05 09:54 | NUR ---
DAUGHTER AND CAREGIVER AT BS
[2020-08-05 09:59] LABS: MEAN CORPUSCULAR HGB CONC 29.8 g/dL (32.4-35.8)
[2020-08-05] MEDS ORDERED: SODIUM CHLORIDE 0.9%, 500ML IVBOLUS ONE (10:00)
[2020-08-05] MEDS ORDERED: DILTIAZEM 5 MG/ML, 5ML IV ONE ×2 (10:00→11:30)
[2020-08-05 10:01] LABS: ANISOCYTOSIS 1+; BAND#(MANUAL) 0.25 x10^3/uL; BANDS%(MANUAL) 2 % (0-7); HYPOCHROMIA 1+; LYMPH#(MANUAL) 0.87 x10^3/uL (1-3.4); LYMPHS% (MANUAL) 7 % (22-44); MICROCYTOSIS 1+; MONOS#(MANUAL) 0.87 x10^3/uL (0.3-2.7); MONOS% (MANUAL) 7 % (2-9); SEG#(MANUAL) 10.42 x10^3/uL (1.8-6.8); SEGS% (MANUAL) 84 % (42-75)
[2020-08-05 10:02] LABS: <PLATELET ESTIMATE> DECREASED; <PLT MORPHOLOGY> NORMAL PLT MORPH; OVALOCYTES 1+; POLYCHROMASIA 1+; TEAR DROPS 1+
--- NOTE | 2020-08-05 10:06 | NUR ---
DISCUSED AT LENGTH HOSPICE CARE INDETAIL, PT AND FAMILY WILL DISCUSS IF THEY WANT TREATMENT OR GO HOME WITH HOSPICE VS AGGRESSIVE CARE
[2020-08-05] MEDS ORDERED: ASPIRIN 81 MG TABLET EC ONE (11:07)
--- NOTE | 2020-08-05 11:21 | NUR ---
REPORT RECEIVED FROM MICHEL FRANCOIS. PT A&O, RESPS EVEN AND UNLABORED, FRANCISCO, RAQUEL.
--- NOTE | 2020-08-05 11:22 | NUR ---
Britney nunez in [facility] - 08/05/20 at 1212 by ZIA REPORT TO NICOLE FRANCOIS, PLAN OF CARE DISCUSSED
[2020-08-05] MEDS ORDERED: ASPIRIN 81 MG TABLET CHEW PO ONE (11:30)
[2020-08-05] MEDS ORDERED: DILTIAZEM 30 MG TABLET PO ONE (11:30)
--- NOTE | 2020-08-05 12:09 | NUR ---
PRECEPTOR RN NOTE: GRUPO ROSAS NOTIFIED PT MEETING MULTIPLE SEPSIS CRITERIA INCLUDING ELEVATED WBC, RENAL FAILURE, INC OXYGEN REQ, HYPOTENSION. SOURCE QUERY PNEUMONIA SEEN ON CXR. MD DECLINES TO ORDER SEPSIS SET, THIS WAS PREVIOUSLY DISCUSSED WITH FAMILY AND MD. PT'S FAMILY DECLINING TX IN FAVOR OF PALLIATIVE CARE PER MD.
--- NOTE | 2020-08-05 12:22 | NUR ---
social media editor at bedside to speak with pt and family who are at bedside.
--- NOTE | 2020-08-05 12:44 | NUR ---
after discussion with protective services social worker, pt and family choosing to treat pneumonia. orders received for blood cx x2, then rocephin/doxycycline. EDMD Vela notified pt has met criteria for septic shock. MD ordered second bolus of 250mL NS but declines to order full weight based fluid bolus as pt has profound congestive heart failure.
[2020-08-05] MEDS ORDERED: DOXYCYCLINE 100MG TABLET PO ONE (13:00)
[2020-08-05] MEDS ORDERED: SODIUM CHLORIDE 0.9%, 250ML IVBOLUS ONE (13:00)
[2020-08-05] MEDS ORDERED: CEFTRIAXONE 1,000 MG in DEXTROSE 5% 50 ML IVPB ONE (13:00)
[2020-08-05] MEDS ORDERED: DOXYCYCLINE 100MG TABLET ONE (13:05)
--- NOTE | 2020-08-05 13:15 | NUR ---
abx started after bc drawn x2
--- NOTE | 2020-08-05 14:09 | NUR ---
preceptor RN note: report called to receiving PRISCILA Ramirez. Hospitalist Palma notified of current bp and trend, notified bp was 78/45 at 1323, now improved but map still below 65. JANET Waldrop requests RN to keep pt in ED until he has completed admit assessment and made determination of code status and advanced directives with pt and family.
[2020-08-05 14:15] LABS: ANION GAP 11 mmol/L (5-15); CALCIUM 8.3 mg/dL (8.5-10.1); CHLORIDE 97 mmol/L (98-107); CREATININE 2.85 mg/dL (0.55-1.02)
--- NOTE | 2020-08-05 14:25 | NUR ---
jareth arroyo at bedside speaking with pt and family. pt a&o, resps even and unlabored,
[2020-08-05 14:52] VITALS: BP 92/61
[2020-08-05] MEDS ORDERED: BISACODYL 10 MG SUPP PR PRN (15:00)
[2020-08-05] MEDS ORDERED: DOXYCYCLINE 100 MG in DEXTROSE 5% 250 ML IV SCH (15:00)
[2020-08-05] MEDS ORDERED: SODIUM ZIRCONIUM CYCLOSILICATE 5 GM PO ONE (15:00)
[2020-08-05] MEDS: SODIUM CHLORIDE 0.9% 1,000 ML IV SCH (15:00)
[2020-08-05] MEDS ORDERED: CEFTRIAXONE 1,000 MG in DEXTROSE 5% 50 ML IVPB SCH (15:00)
[2020-08-05] MEDS ORDERED: POLYETHYLENE GLYCOL 17 GM PACKET PO PRN (15:00)
[2020-08-05] MEDS ORDERED: DOCUSATE 100 MG CAPSULE PO PRN (15:00)
[2020-08-05] MEDS ORDERED: INSULIN SINGLE DOSE, ER ONE (15:25)
[2020-08-05 15:55] LABS: TROPONIN I 0.052 ng/mL (0.000-0.045)
[2020-08-05] MEDS: ALBUMIN HUMAN 25% 100 ML IV SCH (17:49)
[2020-08-05 18:24] VITALS: BP 97/58
[2020-08-05 20:24] VITALS: BP 95/64
[2020-08-05] MEDS: DILTIAZEM 30 MG TABLET PO SCH ×2 (20:38→20:55)
[2020-08-05 20:43] LABS: TROPONIN I 0.055 ng/mL (0.000-0.045)
[2020-08-05] MEDS: ALBUTEROL SULFATE 2.5 MG/3 ML NPPB SCH (21:00)
[2020-08-05] MEDS: BUDESONIDE 0.5 MG/2 ML INHA INH SCH (21:00)
[2020-08-06 00:14] VITALS: BP 110/70
[2020-08-06] MEDS: ALBUMIN HUMAN 25% 100 ML IV SCH ×3 (02:15→18:10)
[2020-08-06 03:18] LABS: MICROSCOPIC INDICATED
[2020-08-06 05:28] VITALS: BP 111/69
[2020-08-06] MEDS: DILTIAZEM 30 MG TABLET PO SCH ×4 (05:32→20:33)
[2020-08-06 05:44] LABS: ALBUMIN 3.6 g/dL (3.4-5.0); ANION GAP 9 mmol/L (5-15); CALCIUM 8.2 mg/dL (8.5-10.1); CHLORIDE 94 mmol/L (98-107)
[2020-08-06 05:53] LABS: BASOPHILS % (AUTO) 0 % (0-1); EOSINOPHILS % (AUTO) 1 % (1-7); LYMPHOCYTES % (AUTO) 12 % (22-44); MEAN CORPUSCULAR HGB CONC 30.4 g/dL (32.4-35.8); MEAN PLATELET VOLUME 7.3 fL (7.4-10.4); MONOCYTES % (AUTO) 10 % (2-9); NEUTROPHILS % (AUTO) 77 % (42-75); PLATELET COUNT 190 x10^3/uL (130-400); RED BLOOD COUNT 3.07 x10^6/uL (3.82-5.3); RED CELL DISTRIBUTION WIDTH 19.9 % (9.6-15.2)
[2020-08-06 05:56] LABS: ALANINE AMINOTRANSFERASE 42 U/L (12-78); ALKALINE PHOSPHATASE 74 U/L (45-117); BILIRUBIN,TOTAL 0.8 mg/dL (0.2-1.0); CREATININE 2.32 mg/dL (0.55-1.02)
[2020-08-06] MEDS: BUDESONIDE 0.5 MG/2 ML INHA INH SCH ×2 (06:56→20:30)
[2020-08-06] MEDS: ALBUTEROL SULFATE 2.5 MG/3 ML NPPB SCH ×2 (06:56→20:30)
[2020-08-06 07:13] VITALS: BP 118/64
[2020-08-06] MEDS: SODIUM CHLORIDE 0.9% 1,000 ML IV SCH ×2 (07:18→10:30)
[2020-08-06] MEDS: DOXYCYCLINE 100MG TABLET PO SCH ×2 (09:43→20:33)
[2020-08-06] MEDS ORDERED: SODIUM ZIRCONIUM CYCLOSILICATE 5 GM PO ONE (10:00)
[2020-08-06] MEDS: CEFTRIAXONE 2 GM in DEXTROSE 5% 50 ML IVPB SCH (11:35)
[2020-08-06 14:06] VITALS: BP 108/67
[2020-08-06 18:50] VITALS: BP 115/67
[2020-08-06 20:30] VITALS: BP 121/71
[2020-08-06] MEDS: ACETAMINOPHEN 325 MG TABLET PO PRN (20:49)
[2020-08-07] VITALS (9 sets, daily range): BP systolic 110–147; BP diastolic 68–81
[2020-08-07] MEDS: ALBUMIN HUMAN 25% 100 ML IV SCH ×4 (01:25→18:34)
[2020-08-07] MEDS: ACETAMINOPHEN 325 MG TABLET PO PRN (03:56)
[2020-08-07 05:27] LABS: BASOPHILS % (AUTO) 0 % (0-1); EOSINOPHILS % (AUTO) 2 % (1-7); LYMPHOCYTES % (AUTO) 12 % (22-44); MEAN CORPUSCULAR HEMOGLOBIN 23.2 pg (27.0-34.8); MEAN CORPUSCULAR HGB CONC 30.8 g/dL (32.4-35.8); MEAN PLATELET VOLUME 7.4 fL (7.4-10.4); MONOCYTES % (AUTO) 11 % (2-9); NEUTROPHILS % (AUTO) 75 % (42-75); PLATELET COUNT 180 x10^3/uL (130-400); RED BLOOD COUNT 2.82 x10^6/uL (3.82-5.3); RED CELL DISTRIBUTION WIDTH 20.4 % (9.6-15.2)
[2020-08-07 05:33] LABS: CHLORIDE 96 mmol/L (98-107)
[2020-08-07] MEDS: DILTIAZEM 30 MG TABLET PO SCH ×4 (05:57→20:06)
[2020-08-07 06:05] LABS: ALANINE AMINOTRANSFERASE 33 U/L (12-78); ALBUMIN 4.1 g/dL (3.4-5.0); ALKALINE PHOSPHATASE 69 U/L (45-117); ANION GAP 8 mmol/L (5-15); BILIRUBIN,TOTAL 0.5 mg/dL (0.2-1.0); CALCIUM 8.3 mg/dL (8.5-10.1); CREATININE 1.56 mg/dL (0.55-1.02)
[2020-08-07] MEDS: SODIUM CHLORIDE 0.9% 1,000 ML IV SCH (08:24)
[2020-08-07] MEDS: ALBUTEROL SULFATE 2.5 MG/3 ML NPPB SCH ×2 (11:08→19:38)
[2020-08-07] MEDS: BUDESONIDE 0.5 MG/2 ML INHA INH SCH ×2 (11:08→19:38)
[2020-08-07] MEDS: CEFTRIAXONE 2 GM in DEXTROSE 5% 50 ML IVPB SCH (13:52)
[2020-08-07] MEDS: LOVASTATIN 20 MG TABLET PO SCH (20:06)
[2020-08-08 01:13] VITALS: BP 145/75
[2020-08-08] MEDS: ALBUMIN HUMAN 25% 100 ML IV SCH ×3 (02:19→17:17)
[2020-08-08 04:50] LABS: BASOPHILS % (AUTO) 0 % (0-1); EOSINOPHILS % (AUTO) 3 % (1-7); LYMPHOCYTES % (AUTO) 9 % (22-44); MEAN CORPUSCULAR HEMOGLOBIN 23.6 pg (27.0-34.8); MEAN CORPUSCULAR HGB CONC 30.7 g/dL (32.4-35.8); MEAN PLATELET VOLUME 7.1 fL (7.4-10.4); MONOCYTES % (AUTO) 10 % (2-9); NEUTROPHILS % (AUTO) 78 % (42-75); PLATELET COUNT 210 x10^3/uL (130-400); RED CELL DISTRIBUTION WIDTH 19.7 % (9.6-15.2)
[2020-08-08 05:01] LABS: ANION GAP 7 mmol/L (5-15); CALCIUM 8.6 mg/dL (8.5-10.1); CHLORIDE 101 mmol/L (98-107); CREATININE 1.07 mg/dL (0.55-1.02)
[2020-08-08 05:09] LABS: OCCULT BLOOD POSITIVE (NEGATIVE)
[2020-08-08] MEDS: DILTIAZEM 30 MG TABLET PO SCH ×4 (05:48→21:23)
[2020-08-08] MEDS: SODIUM CHLORIDE 0.9% 1,000 ML IV SCH (05:50)
[2020-08-08 06:39] VITALS: BP 119/61
[2020-08-08] MEDS: ALBUTEROL SULFATE 2.5 MG/3 ML NPPB SCH ×2 (09:17→19:44)
[2020-08-08] MEDS: BUDESONIDE 0.5 MG/2 ML INHA INH SCH ×2 (09:17→19:44)
[2020-08-08] MEDS: SPIRONOLACTONE 25 MG TABLET PO SCH (09:31)
[2020-08-08] MEDS: FUROSEMIDE 20 MG TABLET PO SCH ×2 (09:31→21:23)
[2020-08-08] MEDS: ACETAMINOPHEN 325 MG TABLET PO PRN (09:40)
[2020-08-08] MEDS: CEFTRIAXONE 2 GM in DEXTROSE 5% 50 ML IVPB SCH (11:30)
[2020-08-08 12:05] VITALS: BP 115/63
[2020-08-08 18:40] VITALS: BP 115/76
[2020-08-08 21:16] VITALS: BP 126/83
[2020-08-08] MEDS: LOVASTATIN 20 MG TABLET PO SCH (21:23)
[2020-08-08] MEDS ORDERED: DILTIAZEM 5 MG/ML, 5ML ONE (22:12)
[2020-08-08] MEDS ORDERED: DILTIAZEM 5 MG/ML, 5ML IVPush ONE (22:30)
[2020-08-09 01:00] VITALS: BP 109/79
[2020-08-09] MEDS: ALBUMIN HUMAN 25% 100 ML IV SCH ×4 (02:06→16:49)
[2020-08-09 05:37] LABS: BASOPHILS % (AUTO) 0 % (0-1); EOSINOPHILS % (AUTO) 3 % (1-7); LYMPHOCYTES % (AUTO) 8 % (22-44); MEAN CORPUSCULAR HEMOGLOBIN 23.6 pg (27.0-34.8); MEAN CORPUSCULAR HGB CONC 30.2 g/dL (32.4-35.8); MEAN PLATELET VOLUME 7.1 fL (7.4-10.4); MONOCYTES % (AUTO) 10 % (2-9); NEUTROPHILS % (AUTO) 79 % (42-75); PLATELET COUNT 225 x10^3/uL (130-400); RED BLOOD COUNT 3.44 x10^6/uL (3.82-5.3); RED CELL DISTRIBUTION WIDTH 19.8 % (9.6-15.2)
[2020-08-09] MEDS: DILTIAZEM 30 MG TABLET PO SCH ×4 (06:17→21:00)
[2020-08-09 06:36] VITALS: BP 164/97
[2020-08-09 06:58] VITALS: BP 114/83
[2020-08-09] MEDS: ALBUTEROL SULFATE 2.5 MG/3 ML NPPB SCH ×2 (07:15→19:19)
[2020-08-09] MEDS: BUDESONIDE 0.5 MG/2 ML INHA INH SCH ×2 (07:15→19:19)
[2020-08-09] MEDS: SPIRONOLACTONE 25 MG TABLET PO SCH (09:00)
[2020-08-09] MEDS: FUROSEMIDE 20 MG TABLET PO SCH ×2 (09:00→21:00)
[2020-08-09] MEDS: CEFTRIAXONE 2 GM in DEXTROSE 5% 50 ML IVPB SCH (11:04)
[2020-08-09] MEDS: ACETAMINOPHEN 325 MG TABLET PO PRN (14:11)
[2020-08-09] MEDS: MORPHINE SULFATE 4 MG/ML, 1ML IVPush PRN ×2 (18:19→23:26)
[2020-08-09 18:35] VITALS: BP 128/74
[2020-08-09] MEDS: LOVASTATIN 20 MG TABLET PO SCH (21:00)
[2020-08-09] MEDS: LORazepam 2 MG/ML, 1ML IVPush PRN (23:25)
[2020-08-10 01:25] VITALS: BP 114/77
[2020-08-10] MEDS: ALBUMIN HUMAN 25% 100 ML IV SCH ×2 (01:47→08:36)
[2020-08-10] MEDS ORDERED: ONDANSETRON 2MG/ML, 2ML IVPush PRN ×2 (03:00→12:00)
[2020-08-10] MEDS ORDERED: LORazepam 2 MG/ML, 1ML IVPush PRN (03:00)
[2020-08-10] MEDS: LORazepam 2 MG/ML, 1ML IVPush PRN (03:19)
[2020-08-10] MEDS: MORPHINE SULFATE 4 MG/ML, 1ML IVPush PRN ×4 (03:19→11:58)
[2020-08-10] MEDS: DILTIAZEM 30 MG TABLET PO SCH ×2 (05:27→10:56)
[2020-08-10] MEDS: ALBUTEROL SULFATE 2.5 MG/3 ML NPPB SCH (07:27)
[2020-08-10] MEDS: BUDESONIDE 0.5 MG/2 ML INHA INH SCH (07:28)
[2020-08-10] MEDS: SPIRONOLACTONE 25 MG TABLET PO SCH (08:36)
[2020-08-10] MEDS: FUROSEMIDE 20 MG TABLET PO SCH (08:36)
[2020-08-10] MEDS ORDERED: SENNOSIDES 8.6 MG TABLET PO SCH (09:00)
[2020-08-10] MEDS: CEFTRIAXONE 2 GM in DEXTROSE 5% 50 ML IVPB SCH (11:00)
[2020-08-10] MEDS ORDERED: SCOPOLAMINE 1MG PATCH TD PRN (12:00)
[2020-08-10] MEDS ORDERED: MORPHINE 30MG/30ML PCA.SYR IV PRN (12:00)
[2020-08-10] MEDS ORDERED: ATROPINE OPHTH SOLN 1%, 5ML PO PRN (12:00)
[2020-08-10] MEDS ORDERED: SODIUM CHLORIDE FLUSH 10ML SYR IVF SCH (21:00)
== END 2020-08-10 21:00 | disposition expired | DRG 871 ==
LOC: ED 10:53 → 4WST 12:40 → 4NW 08-10 12:53
PROVIDERS: ADMIT Internal Medicine; ATTEND Family Medicine
PROC: 30233N1 Transfusion of Nonautologous Red Blood Cells into Peripheral Vein, Percutaneous Approach (ICD-10-PCS; principal; 2020-08-07)
DX: A40.8 Other streptococcal sepsis (principal); J96.21 Acute and chronic respiratory failure with hypoxia; J18.9 Pneumonia, unspecified organism; N17.9 Acute kidney failure, unspecified; J44.0 Chronic obstructive pulmonary disease with (acute) lower respiratory infection; I48.20 Chronic atrial fibrillation, unspecified; E87.1 Hypo-osmolality and hyponatremia; I13.0 Hypertensive heart and chronic kidney disease with heart failure and stage 1 through stage 4 chronic kidney disease, or unspecified chronic kidney disease; I48.92 Unspecified atrial flutter; I50.32 Chronic diastolic (congestive) heart failure; D50.9 Iron deficiency anemia, unspecified; Z51.5 Encounter for palliative care; Z66 Do not resuscitate; E11.22 Type 2 diabetes mellitus with diabetic chronic kidney disease; E78.5 Hyperlipidemia, unspecified; E86.0 Dehydration; E87.5 Hyperkalemia; N18.9 Chronic kidney disease, unspecified; Z82.49 Family history of ischemic heart disease and other diseases of the circulatory system; Z95.0 Presence of cardiac pacemaker; F41.9 Anxiety disorder, unspecified; G47.33 Obstructive sleep apnea (adult) (pediatric); M19.90 Unspecified osteoarthritis, unspecified site; I95.9 Hypotension, unspecified; Z88.8 Allergy status to other drugs, medicaments and biological substances; B95.0 Streptococcus, group A, as the cause of diseases classified elsewhere
CPT/HCPCS: 36415; 36430; 71045; 80048; 80053; 80162; 81001; 82040; 82272; 82607; 82728; 83540; 83550; 83605; 83735; 83880; 84100; 84145; 84443; 84484; 85025; 86850; 86900; 86923; 87040; 87077; 87086; 87181; 93005; 93306; 94640; 96374; 99291; G0378; J0696; J7060; J7613; J7626; P9047; J1815; J2060; J2270; J7030; J7040; J7050; P9016